=== PATIENT | female | born 1970 | race Caucasian/White ===

== ENCOUNTER → 2019-09-01 08:15 | Outpatient (CLI) | payer BC, SELFPAY ==
--- NOTE | ~2019-09-01 | CT_ITS ---
EXAMINATION: CT soft tissue neck w con EXAM DATE: 09/01/2019 08:59 INDICATION: Neck fullness, pea-sized lump right side marked with BB. TECHNIQUE: Spiral CT of the neck was performed following intravenous injection of 75 mL Omnipaque 350 . Axial, coronal and sagittal images were reviewed. The dose-length product (DLP) for this examinat ion was 393.33 mGy-cm. The exposure was tailored according to patient size (auto mA exposure control ), and iterative reconstruction (ASIR) was used as additional dose reduction technique. There is no prior study for comparison. FINDINGS: Externally placed marker identified with unremarkable submandibular gland deep to it. Scatt ered small bilateral submandibular and internal jugular chain lymph nodes. The thyroid gland is unrem arkable. The submandibular and parotid glands are symmetric. There is no cervical lymphadenopathy . There are no masses identified. The superior mediastinum is unremarkable. The airway is unrem arkable. Parapharyngeal and pre-glottic fat planes are preserved. The opacified vasculature is pa tent. The orbits are unremarkable. Visualized sinuses and mastoid air cells are well aerated. Mild cervical spondylosis. IMPRESSION: Unremarkable neck CT examination. Reviewed, dictated and finalized at location A.
== END ==
PROVIDERS: PCP Nurse Practitioner Psychiatric/Mental Health; Visit Provider Family Medicine
DX: R22.1 Localized swelling, mass and lump, neck (principal)
CPT/HCPCS: 70491; Q9967

== ENCOUNTER → 2020-02-20 09:20 | Outpatient (CLI) | payer BC, SELFPAY ==
--- NOTE | ~2020-02-20 | US_ITS ---
EXAMINATION: US abdomen complete DATE: 02/20/2020 09:45 INDICATION: Abdominal pain TECHNIQUE: Multiple grayscale and Doppler ultrasound images of the abdomen were obtained. COMPARISON: 07/11/2005 FINDINGS: The pancreatic head and body are normal in appearance. The pancreatic tail is not visualized. Abdomi nal aorta is normal in caliber measuring 2.1 cm proximally, 1.8 cm in the mid aorta and 2.0 cm the di stal aorta. The proximal inferior vena cava is normal. Liver has normal echogenicity and contour, wit h a smooth surface. No liver lesion identified. No intrahepatic biliary duct dilation suspected. Port al venous flow was seen in the hepatopetal, normal direction and has normal Doppler waveform. The gal lbladder is normal in appearance. There is no cholelithiasis. The common bile duct measures 3-4 mm, which is normal. Sonographic Baird sign was reported as negative by the club director. There is normal renal contour and echogenicity bilaterally. The right kidney measures 9.5 x 4.9 x 6.2 cm and the lef t 9.5 x 5.4 x 6.6 cm. There are no focal renal lesions identified. There is no hydronephrosis. Sple en is normal measuring 10.7 cm in length. IMPRESSION: 1. Normal abdominal ultrasound. Reviewed, dictated and finalized at location B.
== END ==
PROVIDERS: PCP Family Medicine; Visit Provider Family Medicine
DX: R10.9 Unspecified abdominal pain (principal)
CPT/HCPCS: 76700

== ENCOUNTER → 2020-03-04 12:28 | Outpatient (CLI) | payer BC, SELFPAY ==
--- NOTE | ~2020-03-04 | CT_ITS ---
EXAMINATION: CT abdomen pelvis w con DATE: 03/04/2020 12:54 INDICATION: Generalized abdominal pain, weight loss, nausea and diarrhea. TECHNIQUE: Computed tomography (CT) of the abdomen and pelvis was performed with 100 mL Omnipaque-350 intravenous contrast. Automated exposure control and iterative reconstruction technique were employe d. The dose-length product was 842.05 mGy-cm. COMPARISON: None FINDINGS: Lung bases are clear. Heart size is normal. No pericardial or pleural effusion. Focal hepatic steatos is at the ligamentum teres. Gallbladder, spleen, pancreas, bilateral adrenal glands and kidneys are n ormal. There are few scattered colonic diverticula without adjacent inflammatory change to suggest di verticulitis. Small bowel and appendix are normal. The uterus is not identified and has likely been s urgically resected. The uterus is not identified and has likely been surgically resected. Bladder and bilateral adrenal glands are normal. Tiny fat-containing umbilical hernia. Mild lumbar levocurvature with mild spondylosis. IMPRESSION: 1. No acute intra-abdominal/pelvic process. Reviewed, dictated and finalized at location A.
== END ==
PROVIDERS: PCP Family Medicine; Visit Provider Family Medicine
DX: R10.9 Unspecified abdominal pain (principal)
CPT/HCPCS: 74177; Q9967

== ENCOUNTER 2020-06-03 08:09 | Outpatient (CLI) | payer BC, SELFPAY | END 2020-06-03 08:10 | disposition home or self-care (01) | LOC: ANHSURGERY 08:10 | PROVIDERS: PCP Family Medicine; Visit Provider Obstetrics & Gynecology | DX: R10.2 Pelvic and perineal pain (principal); Z01.818 Encounter for other preprocedural examination | CPT/HCPCS: 36415; 86850; 86900; 86901 ==

== ENCOUNTER 2020-06-05 01:20 | Outpatient (CLI) | payer BC, SELFPAY ==
[2020-06-06 01:23] LABS: SARS-CoV-2 RNA PCR Negative
== END 2020-06-05 01:21 | disposition home or self-care (01) ==
LOC: ANHCOVIDDT 01:20
PROVIDERS: PCP Family Medicine; Visit Provider Obstetrics & Gynecology
DX: Z01.812 Encounter for preprocedural laboratory examination (principal); Z20.828 Contact with and (suspected) exposure to other viral communicable diseases
CPT/HCPCS: 87635; C9803; U0003

== ENCOUNTER 2020-06-08 01:54 | Day surgery (SDC) | payer BC, SELFPAY ==
--- NOTE | 2020-06-01 13:46 | PM.IMHP ---
H&P: HPI History of Present Illness Date/Time: 06/01/20 13:46 Chief complaint: bilat ovarian cysts, pelvic pain Narrative: Junie lSade is a 50 year old female She would be 1 status post hysterectomy is admitted for laparoscopic bilateral salpingo-oophorectomy. She has pain and discomfort and she has ultrasound showing a complex right ovarian cyst. She has opted to have both ovaries out at the time she understands this will make her permanently postmenopausal. Risks and benefits of the procedure reviewed in full Review of Systems Review of Systems: All systems reviewed & are unremarkable except as noted in HPI and below Meds Home Medications and Allergies Allergies Allergy/AdvReac Type Severity Reaction Status Date / Time TRAXIMENT Allergy SOB, CHEST Uncoded 09/05/13 09:58 TIGHTNESS Exam Const: General: no acute distress Eyes: General: appearance normal, both eyes and all related structures Neck: Neck: supple and no JVD Thyroid: thyroid normal Resp: Effort & Inspection: normal respiratory effort Auscultation: clear to auscultation bilaterally Cardio: Rate: regular rate Rhythm: regular rhythm GI: Inspection: non-distended GI Palp: Yes Soft to palpation, No Tenderness to palpation present (GI) and No Guarding due to palpation present (GI) Auscultation: normal bowel sounds : External Female Exam: normal external appearance Speculum Exam - Vagina: normal appearance of the vagina Speculum Exam - Cervix: Cervix absent Bimanual Exam- Adnexa, other: tender Skin: General skin exam: no rashes or lesions noted Extrem: General: normal to inspection and no edema Psych: Mental Status: mental status grossly normal Affect: normal affect Assessment and Plan Additional Plan impression: Pelvic pain complex right ovarian cyst Plan: Laparoscopic BSO
[2020-06-02 09:50] VITALS: BMI 29.2
--- NOTE | 2020-06-07 12:26 | WPDANESEPPF ---
Anes - Initial Pre Proc Eval Procedure: Operation Date: 06/08/20 12:00 Proposed Procedures p Laparoscopic Bilateral Salpingo-Oophorectomy - Addison Ortiz MD Date/Time: 06/07/20 12:26 Surgeon: Addison Ortiz MD Pre Op Diagnosis: bilat ovarian cysts, pelvic pain Patient Data Age: 50 Gender: F Height: 1.68 m Weight: 82 kg Allergies Allergy/AdvReac Type Severity Reaction Status Date / Time pregabalin [From Lyrica] Allergy Severe Rash Verified 06/08/20 10:04 sulfamethoxazole Allergy Severe Rash Verified 06/08/20 10:04 [From Bactrim] trimethoprim [From Bactrim] Allergy Severe Rash Verified 06/08/20 10:04 TRAXIMENT Allergy Severe SOB, CHEST Uncoded 06/08/20 10:04 TIGHTNESS Home Medications Medication Instructions Recorded Confirmed Type albuterol 90 mcg INHALATION PRN PRN 06/02/20 06/02/20 History ascorbic acid (vitamin C) 1 g PO DAILY 06/02/20 06/08/20 History diphenhydramine HCl [Benadryl] 25 mg PO HS PRN 06/02/20 06/02/20 History erenumab-aooe [Aimovig 70 mg SUBCUT MONTHLY 06/02/20 06/02/20 History Autoinjector] fluticasone propion-salmeterol 2 puff INHALATION PRN PRN 06/02/20 06/08/20 History [Advair HFA] montelukast 10 mg PO DAILY 06/02/20 06/08/20 History omeprazole 20 mg PO DAILY 06/02/20 06/08/20 History topiramate 100 mg PO DAILY 06/02/20 06/08/20 History hydrocodone-acetaminophen [[place]] 1 tablet PO Q4H PRN #30 tablet 06/08/20 Rx Patient hx anesthesia problems: none Family hx anesthesia problems: none PMFSH Past Medical History Medical History (Updated 06/08/20 @ 07:08 by Addison Ortiz MD) Asthma Chronic GERD Migraine Overweight (BMI 25.0-29.9) Social History Social History Smoking status: Never smoker Alcohol intake: never Substance use: never Living arrangements: with family Spiritual care concerns: No Anes - Eval Final PreProcedure Day of Procedure 06/07/20 12:26 Patient weight: overweight Heart: regular rate and rhythm Lungs: clear to auscultation and normal air movement Airway: Mallampati scale class II Neurological: alert and oriented Last oral intake: >/= 8 hours ASA classification: II Emergent: no Anesthetic plan: proceed Anesthesia type and monitoring: general ETT Informed Consent: The patient's anesthetic plan and its attendant risks and benefits were discussed with the patient/family/POA. Questions were solicited and answers provided to the satisfaction of the patient/family/POA.
[2020-06-08] VITALS (9 sets, daily range): BP systolic 100–119; BP diastolic 57–75; PULSE 83–118; RESP 10–20; TEMP 36–37.1; O2SAT 100
--- NOTE | 2020-06-08 07:07 | WPDHPUPDATE1 ---
History and Physical Update Update Date/Time: 06/08/20 07:07 History and Physical has been reviewed, including an updated exam of the patient. There are NO changes in the patient's condition. Risks, benefits, and alternatives have been discussed and questions answered. Patient agrees to proceed with procedure.
[2020-06-08] MEDS: LACTATED RINGERS 1,000 ML 30 ML IV CONT ×2 (10:25→13:19)
[2020-06-08] MEDS: ACETAMINOPHEN 500 MG TABLET 1000 MG PO (10:25)
[2020-06-08] MEDS: KETOROLAC 15 MG/ML VIAL (*BKC) IV PUSH (10:32)
[2020-06-08] MEDS: SCOPOLAMINE 1.5 MG PATCH TRANSDERM (11:07)
--- NOTE | 2020-06-08 12:33 | PM.PROC ---
Procedure Note - Detailed Date of procedure: 06/08/20 Pre-op diagnosis: bilat ovarian cysts, pelvic pain Surgeon: Addison Ortiz MD Postop diagnosis: Bilateral ovarian cyst/pelvic pain/pelvic adhesions Anesthesia: General endotracheal Procedure: Laparoscopic bilateral salpingo-oophorectomy and lysis of adhesions Findings: Absent uterus bilateral ovarian cysts. Multiple adhesions to the right ovary and tube Complications: None EBL: 25cc Description of procedure: Patient was prepped draped in the normal sterile fashion placed in the dorsal lithotomy position. Under excellent general endotracheal anesthesia weighted speculum placed in posterior fornix of vagina. The sponge stick was placed in the bladder drained of clear urine. The weighted speculum was removed removed and the gloves were changed. A supraumbilical incision was made Veress needle passed in the abdomen. The abdomen filled with CO2 gas [id number]. 5mm trocar was advanced under direct visualization assuring no injury with the Optiview scope. Patient placed in Trendelenburg and a suprapubic incision made. The 5mm trocar advanced under direct visualization assuring no injury. A left lower quadrant incision made and the 10mm trocar advanced under direct visualization assuring no injury. The above findings were seen for documentation was undertaken using the 5mm port to hold on stretch the adhesions were removed with sharp dissection using occasionally cautery. This was careful to avoid any underlying vital structures. Once the left infundibulopelvic structure could be skeletonized this was clamped, burned, cut in the ovary and tube complex placed in the cul-de-sac. In like fashion multiple adhesions were seen on the right in these were sharply dissected using occasional cautery using stretch. When infundibulopelvic structure could be skeletonized was clamped, burned, cut. The right ovary and tube and the left ovary and tube were placed in an Endo-Catch and removed through the left lower quadrant incision. Irrigation was undertaken in hemostasis appeared present. All pedicles appeared dry. The lower site removed after gas removed from the abdomen the upper site removed. The incisions closed with 4 O Monocryl and glue. The patient was awakened and went to recovery in satisfactory condition. All sponge, needle, instrument counts were correct. There were no immediate complications noted
[2020-06-08] MEDS: fentaNYL CITRATE INJ (*CRX) 100 MCG/2 ML VIAL 25 MCG IV PUSH ×4 (13:06→13:32)
[2020-06-08] MEDS: oxyCODONE HCL (*CRX) 5 MG TAB IR PO (14:14)
== END 2020-06-08 14:54 | disposition home or self-care (01) ==
PROVIDERS: PCP Family Medicine; Visit Provider Obstetrics & Gynecology
PROC: (CPT 49320; principal; 2020-06-08 12:00)
DX: N73.6 Female pelvic peritoneal adhesions (postinfective) (principal); K66.8 Other specified disorders of peritoneum; R10.2 Pelvic and perineal pain; J45.909 Unspecified asthma, uncomplicated; K21.9 Gastro-esophageal reflux disease without esophagitis
CPT/HCPCS: 58661; 88305; A9270; J0330; J1100; J1885; J2250; J2405; J2704; J3010; J7120

== ENCOUNTER 2020-11-14 00:28 | Emergency (ER) | payer BC, SELFPAY ==
--- NOTE | ~2020-11-14 | XR_ITS ---
EXAMINATION: XR abdomen obstructive series DATE: 11/14/2020 01:22 INDICATION: Abdominal pain. Nausea and vomiting. TECHNIQUE: Upright and supine views of the abdomen on 3 radiographs were obtained. COMPARISON: CT abdomen and pelvis 03/04/2020 FINDINGS: There are no dilated loops of bowel. There is liquid stool in the colon suggestive of diarr hea. No free intraperitoneal gas. IMPRESSION: 1. Nonobstructive bowel gas pattern. Reviewed, dictated and finalized at location A.
[2020-11-14 00:30] VITALS: BP 112/77; PULSE 112; RESP 20; TEMP 36.9; O2SAT 94
--- NOTE | 2020-11-14 00:44 | ECG_ITS ---
Measurements Intervals [place] Rate: 95 P: 54 HI: 160 QRS: 64 QRSD: 89 T: 65 QT: 336 QTc: 424 Interpretive Statements SINUS RHYTHM WITH MARKED SINUS ARRHYTHMIA INCOMPLETE RIGHT BUNDLE BRANCH BLOCK BORDERLINE ECG Electronically Signed On 11-14-2020 5:56:41 CDT by Murtaza Luque D.O.
--- NOTE | 2020-11-14 00:49 | ED.SYNCOPE ---
HPI - Syncope General Chief Complaint: Syncope Stated Complaint: PASSED OUT Time Seen by Provider: 11/14/20 00:30 Source: patient and family Mode of arrival: wheelchair Limitations: no limitations History of Present Illness HPI narrative: Patient is brought in by after having a syncopal episode. She states she has had multiple episodes of nausea and vomiting at home today. She has also had multiple episodes of diarrhea today. Nausea, vomiting and diarrhea has been severe, ongoing, since am 11/13/2020. They were not improved by bentyl taken at home. She has been lightheaded at times throughout the day. MD complaint: loss of consciousness and felt faint Onset (ago): minute(s) -: second(s) Prodromal symptoms: lightheaded Context: at rest Injuries sustained associated with event: none Current symptoms: weakness and other (fatigue) Treatments prior to arrival: none Related Data Home Medications Medication Instructions Recorded Confirmed montelukast 10 mg PO DAILY 06/02/20 11/14/20 omeprazole 20 mg PO DAILY 06/02/20 11/14/20 topiramate 100 mg PO DAILY 06/02/20 11/14/20 Allergies Allergy/AdvReac Type Severity Reaction Status Date / Time pregabalin [From Lyrica] Allergy Severe Rash Verified 06/08/20 10:04 sulfamethoxazole Allergy Severe Rash Verified 06/08/20 10:04 [From Bactrim] trimethoprim [From Bactrim] Allergy Severe Rash Verified 06/08/20 10:04 TRAXIMENT Allergy Severe SOB, CHEST Uncoded 06/08/20 10:04 TIGHTNESS Review of Systems Constitutional: Constitutional: Reports fatigue and Reports weakness Eyes: Eyes: Reports no additional eye complaints ENT: Reports system reviewed and no additional complaints, except as documented Cardiovascular: Cardiovascular: Reports no additional cardiovascular complaints Respiratory: Respiratory: Reports no additional respiratory complaints Gastrointestinal: Gastrointestinal: Reports abdominal pain, Reports diarrhea, Reports nausea and Reports vomiting Genitourinary: Genitourinary: Reports no additional female genitourinary complaints Musculoskeletal: Musculoskeletal: Reports no additional musculoskeletal complaints Integumentary/Breasts: Skin/Breast: Reports system reviewed and no additional complaints, except as docu Neurologic: Reports system reviewed and no additional complaints, except as documented Psychiatric: Psychiatric: Reports no additional psychiatric complaints Endocrine: Endocrine: Reports no additional endocrine complaints Hematologic/Lymphatic: Hematologic/Lymphatic: Reports no additional hematologic/lymphatic complaints Allergic/Immunologic: Allergic/Immunologic: Reports no additional allergic/immunologic complaints [facility] Past Medical History Medical History (Updated 11/14/20 @ 02:45 by Fabien Lu MD) Asthma Chronic GERD Migraine Overweight (BMI 25.0-29.9) Surgical History Surgical History (Updated 11/14/20 @ 01:15 by Fabien Lu MD) H/O: hysterectomy Family History Family History Other No significant family history Social History Social History Smoking status: Never smoker Alcohol intake: never Substance use: never Spiritual care concerns: No Exam Const: General: no acute distress Orientation/consciousness: patient oriented x3 HENMT: Head: normal to inspection Ears: external ears normal General nose exam: Normal external nose present Face and sinus: normal facial exam Mouth: Yes Normal oral and palatal mucosa present Throat: posterior oropharynx normal Eyes: Conjunctivae: conjunctivae normal Neck: Neck: normal visual inspection Chest: Chest palpation & inspection: normal inspection of the chest Resp: Effort & Inspection: normal respiratory effort Auscultation: clear to auscultation bilaterally Cardio: Rate: regular rate Rhythm: regular rhythm GI: Auscultation: Hyperactive bowel margarito
[2020-11-14 00:56] LABS: Basophils Absolute Auto 0.05 K/mm3 (0.00-0.10); Basophils Percent Auto 0.3 % (0.0-1.0); Eosinophils Absolute Auto 0.02 K/mm3 (0.02-0.50); Eosinophils Percent Auto 0.1 % (1.0-6.0); Hematocrit 39.8 % (35.0-49.0); Hemoglobin 13.5 g/dL (12.0-15.0); Immature Granulocyte Absolute 0.05 K/mm3 (0.00-0.00); Immature Granulocyte Percent A 0.3 % (0.0-0.0); Lymphocytes Absolute Auto 0.28 K/mm3 (1.10-4.50); Lymphocytes Percent Auto 1.9 % (18.0-42.0); Mean Corpuscular HGB Conc 33.9 g/dL (32.0-36.0); Mean Corpuscular Hemoglobin 32.5 pg (27.0-31.0); Mean Corpuscular Volume 95.7 fL (78.0-102.0); Mean Platelet Volume 11.3 fl (9.2-11.8); Monocytes Absolute Auto 0.18 K/mm3 (0.10-0.90); Monocytes Percent Auto 1.3 % (2.0-11.0); Neutrophils Absolute Auto 13.8 K/mm3 (1.7-7.2); Neutrophils Percent Auto 96.1 % (50.0-70.0); Platelet Count Result 277 K/mm3 (150-420); Red Blood Count 4.16 M/mm3 (4.20-5.40); Red Cell Distribution Width 12.5 % (11.6-14.4); White Blood Count 14.4 K/mm3 (4.8-10.8)
[2020-11-14 01:03] LABS: Add Urine Microscopic? YES; Appearance Urine Clear (Clear); Bilirubin Urine Negative (Negative); Blood Urine Negative (Negative); Color Urine Yellow (Yellow); Glucose Urine UA Negative (Negative); Ketones Urine 1+ (Negative); Leukocyte Esterase Ur Negative (Negative); Nitrate Urine Negative (Negative); Protein Urine Negative (Negative); Specific Grav Ur >= 1.030 (1.010-1.020); Urobilinogen Urine 0.2 mg/dL (0.2-1.0); pH Urine 5.5 (5.0-8.0)
[2020-11-14 01:06] LABS: Bacteria Urine 1+ /hpf; Mucus Urine Few /lpf; RBC Urine None seen /hpf (0-2); Squamous Epithelial Cell Urine Few /hpf (Few); WBC Urine None seen /hpf (0-3)
[2020-11-14 01:12] LABS: Alanine Aminotransferase 17 U/L (14-59); Albumin Level 4.1 g/dL (3.4-5.0); Alkaline Phosphatase 80 U/L (46-116); Anion Gap 14 mmol/L (8-16); Aspartate Amino Transferase < 10 U/L (15-37); Bilirubin,Total 0.5 mg/dL (0.00-1.00); Blood Urea Nitrogen 24 mg/dL (7-18); Calcium 9.2 mg/dL (8.5-10.1); Carbon Dioxide 22 mmol/L (21-32); Chloride 105 mmol/L (98-108); Estimated Glomerular Filt Rate 50; Glucose 150 mg/dL (70-99); Osmolality Calculated 299 mOsm/kg (285-295); Potassium 3.5 mmol/L (3.5-5.1); Sodium 141 mmol/L (136-145)
[2020-11-14 01:14] LABS: Amylase 33 U/L (25-115); Lipase 40 U/L (73-393); Magnesium 1.9 mg/dL (1.8-2.4)
[2020-11-14] MEDS: ONDANSETRON HCL ODT 4 MG TABLET PO (01:25)
[2020-11-14] MEDS: DICYCLOMINE HCL INJ 20 MG/2 ML VIAL IM (01:25)
[2020-11-14 01:27] LABS: Lactic Acid Reflex 1.2 mmol/L (0.4-2.0)
[2020-11-14] MEDS: LACTATED RINGERS 1,000 ML 999 ML IV CONT (01:45)
[2020-11-14] MEDS: BACLOFEN 10 MG TABLET 20 MG PO (01:51)
[2020-11-14] MEDS: KETOROLAC 30 MG/ML VIAL (*BKC) IV PUSH (02:01)
[2020-11-14 02:52] VITALS: TEMP 36.9
[2020-11-14] MEDS: POTASSIUM BICARBONATE 25 MEQ TABEF 50 MEQ PO (02:53)
[2020-11-14 02:56] VITALS: BP 111/68; PULSE 97; RESP 20; TEMP 36.9; O2SAT 97
== END 2020-11-14 03:07 | disposition home or self-care (01) ==
PROVIDERS: Emergency Provider Emergency Medicine; PCP Family Medicine
DX: K52.9 Noninfective gastroenteritis and colitis, unspecified (principal); G43.909 Migraine, unspecified, not intractable, without status migrainosus; R11.2 Nausea with vomiting, unspecified
CPT/HCPCS: 36415; 74019; 80053; 81001; 82150; 83605; 83690; 83735; 85025; 93005; 96361; 96372; 96374; 99283; 99284; A9270; J0500; J1885; J7120

== ENCOUNTER 2022-04-01 13:33 | Emergency (ER) | payer BC, SELFPAY ==
--- NOTE | ~2022-04-01 | CT_ITS ---
EXAMINATION: CT abdomen pelvis wo con DATE: 04/01/2022 15:37 INDICATION: LEFT FLANK PAIN. TECHNIQUE: Computed tomography (CT) of the abdomen and pelvis was performed without intravenous contr ast. Automated exposure control and iterative reconstruction technique were employed. The dose-length product was 485.47 mGy-cm. COMPARISON: 03/04/2020. FINDINGS: Lower thorax: Unremarkable Liver: Normal. Biliary/Gallbladder: Gallbladder is normal. No bile duct dilation. Pancreas: No mass or duct dilation. Spleen: Normal. Adrenals:No mass. Kidneys: 5 x 8 mm left UPJ stone causing mild caliectasis and pelviectasis and mild perinephric stran ding GI tract: No small or large bowel dilation. Normal appendix. Mild diverticulosis without diverticulit is. Mesentery/Peritoneum: No ascites, mass, or free air. Retroperitoneum: No mass. Pelvis: Pelvic organs are within normal limits. Soft Tissues: Soft tissues and body wall unremarkable. Bones: No acute osseous finding. IMPRESSION: 5 x 8 mm left UPJ stone causing mild obstructive uropathy on the left. Reviewed, dictated and finalized at location K.
[2022-04-01 14:12] VITALS: BP 131/90; PULSE 105; RESP 18; TEMP 36.4; O2SAT 99
--- NOTE | 2022-04-01 14:23 | ED.ABDPAIN ---
HPI - Abdominal Pain General Chief Complaint: Urogenital-Female Stated Complaint: abd pain Time Seen by Provider: 04/01/22 14:12 Source: patient Mode of arrival: ambulatory History of Present Illness HPI narrative: 52 year female with a history of asthma, GERD, migraine had a positive UA 10 days without symptoms for which she received nitrofurantoin presents to the ER with -- left flank pain radiating to her urinary passage since midnight. No dysuria or hematuria. No fever or chills. History of kidney stones. Had hysterectomy in the past MD elicited complaint: flank pain Pertinent past history: none and kidney stones Onset (ago): hour(s) ( started 14 hours ago) Pain Consistency: constant ( initially intermittent but currently continues) Location: L flank Severity: severe Quality: aching Radiation: other ( Radiates to the left groin) Exacerbating factors: nothing Relieving factors: nothing Associated symptoms: denies other symptoms Related Data Patient : No Home Medications Medication Instructions Recorded Confirmed montelukast 10 mg tablet 10 mg PO DAILY 06/02/20 04/01/22 omeprazole 20 mg capsule,delayed 20 mg PO DAILY 06/02/20 04/01/22 release topiramate 100 mg tablet (Topamax) 50 mg PO DAILY 06/02/20 04/01/22 dicyclomine 20 mg tablet 10 mg PO DAILY 04/01/22 04/01/22 duloxetine 30 mg capsule,delayed 30 mg PO BID 04/01/22 04/01/22 release erenumab-aooe 70 mg/mL 70 mg subcut MONTHLY 04/01/22 04/01/22 subcutaneous auto-injector (Aimovig Autoinjector) midodrine 2.5 mg tablet 2.5 mg PO BID 04/01/22 04/01/22 nitrofurantoin macrocrystal 100 mg 100 mg PO BID 04/01/22 04/01/22 capsule Allergies Allergy/AdvReac Type Severity Reaction Status Date / Time pregabalin [From Lyrica] Allergy Severe Rash Verified 04/01/22 16:03 sulfamethoxazole Allergy Severe Rash Verified 04/01/22 16:03 [From Bactrim] trimethoprim [From Bactrim] Allergy Severe Rash Verified 04/01/22 16:03 gabapentin Allergy Hives Verified 04/01/22 16:03 TRAXIMENT Allergy Severe SOB, CHEST Uncoded 04/01/22 16:03 TIGHTNESS Review of Systems Review of Systems: All systems reviewed & are unremarkable except as noted in HPI and below Constitutional: Constitutional: Reports as per HPI and Reports no additional constitutional complaints Eyes: Eyes: Reports as per HPI and Reports no additional eye complaints ENT: Reports system reviewed and no additional complaints, except as documented and Reports as per HPI Cardiovascular: Cardiovascular: Reports as per HPI and Reports no additional cardiovascular complaints Respiratory: Respiratory: Reports as per HPI and Reports no additional respiratory complaints Gastrointestinal: Gastrointestinal: Reports as per HPI and Reports no additional gastrointestinal complaints Genitourinary: Genitourinary: Reports no additional female genitourinary complaints Comments: left flank pain radiating to her left groin. Musculoskeletal: Musculoskeletal: Reports no additional musculoskeletal complaints and Reports as per HPI Integumentary/Breasts: Skin/Breast: Reports system reviewed and no additional complaints, except as docu and Reports as per HPI Neurologic: Reports system reviewed and no additional complaints, except as documented and Reports as per HPI Psychiatric: Psychiatric: Reports no additional psychiatric complaints and Reports as per HPI Endocrine: Endocrine: Reports no additional endocrine complaints and Reports as per HPI Hematologic/Lymphatic: Hematologic/Lymphatic: Reports no additional hematologic/lymphatic complaints and Reports as per HPI Allergic/Immunologic: Allergic/Immunologic: Reports no additional allergic/immunologic complaints and Reports as per HPI [facility] Past Medical History Medical History Asthma Chronic GERD Migraine Overweight (BMI 25.0-29.9) Surgical History Surgical History (Reviewed 04/01/22 @
[2022-04-01] MEDS: ONDANSETRON HCL ODT 4 MG TABLET PO (14:33)
[2022-04-01] MEDS: HYDROmorphone HCL INJ (*CRX) 2 MG/ML VIAL 0.5 MG IM ×2 (14:34→17:30)
[2022-04-01 14:39] LABS: Basophils Absolute Auto 0.08 K/mm3 (0.00-0.10); Basophils Percent Auto 0.8 % (0.0-1.0); Eosinophils Absolute Auto 0.24 K/mm3 (0.02-0.50); Eosinophils Percent Auto 2.5 % (1.0-6.0); Hematocrit 34.8 % (35.0-49.0); Hemoglobin 11.7 g/dL (12.0-15.0); Immature Granulocyte Absolute 0.04 K/mm3 (0.00-0.00); Immature Granulocyte Percent A 0.4 % (0.0-0.0); Lymphocytes Absolute Auto 1.72 K/mm3 (1.10-4.50); Lymphocytes Percent Auto 17.6 % (18.0-42.0); Mean Corpuscular HGB Conc 33.6 g/dL (32.0-36.0); Mean Corpuscular Hemoglobin 32.5 pg (27.0-31.0); Mean Corpuscular Volume 96.7 fL (78.0-102.0); Mean Platelet Volume 11.1 fl (9.2-11.8); Monocytes Absolute Auto 0.64 K/mm3 (0.10-0.90); Monocytes Percent Auto 6.6 % (2.0-11.0); Neutrophils Percent Auto 72.1 % (50.0-70.0); Platelet Count Result 261 K/mm3 (150-420); Red Cell Distribution Width 12.1 % (11.6-14.4); White Blood Count 9.8 K/mm3 (4.8-10.8)
[2022-04-01 14:58] LABS: Add Urine Microscopic? YES; Appearance Urine Clear (Clear); Bilirubin Urine Negative (Negative); Blood Urine 3+ (Negative); Color Urine Yellow (Yellow); Glucose Urine UA Negative (Negative); Ketones Urine Negative (Negative); Leukocyte Esterase Ur Negative (Negative); Nitrate Urine Negative (Negative); Protein Urine Negative (Negative); Specific Grav Ur 1.025 (1.010-1.020); Urobilinogen Urine 0.2 mg/dL (0.2-1.0)
[2022-04-01 15:01] LABS: Alanine Aminotransferase 15 U/L (14-59); Albumin Level 3.9 g/dL (3.4-5.0); Alkaline Phosphatase 84 U/L (46-116); Anion Gap 7 mmol/L (8-16); Aspartate Amino Transferase 17 U/L (15-37); Bilirubin,Total 0.3 mg/dL (0.00-1.00); Blood Urea Nitrogen 23 mg/dL (7-18); Calcium 8.4 mg/dL (8.5-10.1); Carbon Dioxide 25 mmol/L (21-32); Chloride 109 mmol/L (98-108); Estimated CRCL calculation 50 ml/min; Estimated Glomerular Filt Rate 44; Glucose 90 mg/dL (70-99); Lipase 91 U/L (73-393); Osmolality Calculated 295 mOsm/kg (285-295); Potassium 3.4 mmol/L (3.5-5.1); Sodium 141 mmol/L (136-145); Total Protein 6.9 g/dL (6.4-8.2)
[2022-04-01 15:06] LABS: Lactic Acid Reflex 0.6 mmol/L (0.4-2.0)
[2022-04-01 15:10] LABS: Amorphous Sediment Urine Few; Bacteria Urine Trace /hpf; RBC Urine >75 /hpf (0-2); Squamous Epithelial Cell Urine Occasional /hpf (Few); WBC Urine None seen /hpf (0-3)
[2022-04-01 15:11] LABS: Mucus Urine Heavy /lpf
[2022-04-01] MEDS: SODIUM CHLORIDE 0.9% IV 1,000 ML 999 ML IV CONT (15:35)
[2022-04-01] MEDS: HYDROmorphone HCL INJ (*CRX) 2 MG/ML VIAL 0.5 MG IV PUSH (15:38)
[2022-04-01] MEDS: ONDANSETRON INJ 4 MG/2 ML VIAL IV PUSH (15:38)
[2022-04-01 15:44] VITALS: BP 109/68; PULSE 82; RESP 16; O2SAT 98
[2022-04-01] MEDS: TAMSULOSIN HCL 0.4 MG CAPSULE PO (17:17)
[2022-04-01 17:34] VITALS: BP 119/84; PULSE 85; RESP 16; TEMP 36.7; O2SAT 100
== END 2022-04-01 17:30 | disposition home or self-care (01) ==
PROVIDERS: Emergency Provider Internal Medicine Critical Care Medicine
DX: N20.1 Calculus of ureter (principal); N18.30 Chronic kidney disease, stage 3 unspecified
CPT/HCPCS: 36415; 74176; 80053; 81001; 83605; 83690; 85025; 96361; 96372; 96374; 96375; 99284; A9270; J1170; J2405; J7030

== ENCOUNTER 2025-03-03 09:51 | Outpatient (CLI) | payer BC, SELFPAY ==
[2025-03-03 10:11] VITALS: BP 109/69; PULSE 92; RESP 16; TEMP 36.6; O2SAT 99; BMI 30.7
[2025-03-03] MEDS: PEGFILGRASTIM-JMDB 6 MG/0.6 ML SYRINGE SUB-Q (10:11)
--- OUTSIDE RECORDS SUMMARY | 2025-03-03 11:24 | XMS_ITS ---
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 Past Treatment and Therapy Plans No past plan information found.
--- OUTSIDE RECORDS SUMMARY | 2025-03-03 11:24 | XMS_ITS | Encounter Summary ---
Author Organization 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 More than three times a week 02/24/2025 How often do you get togethe r with friends or relatives? More than three times a week 02/24/2025 How often do you attend chur ch or nondenominational services? More than 4 times per year 02/24/2025 Do you belong to any clubs o r organizations such as scientology groups, unions, fraternal or athletic groups, or school groups? Yes 02/24/2025 How often do you attend meet ings of the clubs or organizations you belong to? More than 4 times per year 02/24/2025 Are you , , di vorced, , never , or living with a partner? 02/24/2025 Overall Financial Resource Strain (CARDIA) Answe r Date Recorded How hard is it for you to pa y for the very basics like food, housing, medical care, and heating? Not hard at all 02/24/2025 Hunger Vital Sign Answer Date Recorded Within the past 12 months, y ou worried that your food would run out before you got the money to buy more. Never true 02/25/20 25 Within the past 12 months, t he food you bought just didn't last and you didn't have money to get more. Never true 02/24/2025 PRAPARE - Transportation Answer Date Re corded In the past 12 months, has l ack of transportation kept you from medical appointments or from getting medications? No 02/2025 In the past 12 months, has l ack of transportation kept you from meetings, work, or from getting things needed for daily living? No 02/24/2025 Housing Stability Vital Sign Answer Yon e Recorded In the last 12 months, was t here a time when you were not able to pay the mortgage or rent on time? No 02/24/2025 In the past 12 months, how m any times have you moved where you were living? 0 02/24/2025 At any time in the past 12 m [facility], were you homeless or living in a fpc (including now)? No 02/24/2025 [facility] Utilities Answer Date Recorded In the past 12 months has th e [employer], gas, oil, or water company threatened to shut off services in your home? No 02/24/2025 Comments Unknown Sex and Gender Information Value Date Recorded Sex Assigned at Not on file Legal Sex Female 5:44 PM [employer] Gender Identity Not on file Sexual Orientation Not on file documented as of this encounter Plan of Treatment Not on file documented as of this encounter Visit Diagnoses Diagnosis Acute myeloid leukemia not having achieved remission (HCC)- Primary documented in this encounter Orders Nursing Count Last Ordered Date First Orde red Date HLA LAB REQUISITION 1 02/27/2025 documented in this encounter Care Teams Hand Rigger Relationship Specialty Start Date End Date Miguelangel Espinoza MD [address] [place] [address] PCP - General 10/06/16 Delvin Tavares MD [address] [facility] [address] [place] [address] Referring Physician Hematology and Oncology 12/30/24 Didier Cruz MD [address] [facility] [address] IM BONE MARROW TRANSPLANT, , [address] [place] [address] Medical Oncologist/Ict Business Development Manager Medical Oncology 01/02/25 documented as of this encounter
--- OUTSIDE RECORDS SUMMARY | 2025-03-03 11:24 | XMS_ITS | Clinical Summary ---
Author Organization [address] Address [address] [place] [phone] Care Team Providers [facility] Worker Name Role Phone Miguelangel Espinoza MD Primary Care Provider [phone] Delvin Tavares MD Unavailable [phone] UyVu MD Unavailable [phone] Allergies Active Allergy Reactions Criticality Noted Date Comments Gabapentin Other (See comments) 06/14/2016 Nerve issue Metronidazole Hives Medium 08/16/2021 Pregabalin Other (See comments) 06/14/2016 Rizatriptan Benzoate Anaphylaxis High 08/11/2014 rizatriptan benzoate Sulfamethoxazole-Trimet hoprim Hives,Rash,Shortness of breath High 11/22/2016 Sumatriptan-Naproxen Rash,Unknown Medium 11/22/2016 Trimethoprim Rash High 04/01/2022 Venom-Honey Bee Hives Medium 12/21/2016 honey bee venom Medications topiramate (TOPAMAX) 50 mg tabletIndication s:Acute myeloid leukemia not having achieved remission (HCC) 1 tablet (50 mg total) For nerve pain 2 Active ondansetron (ZOFRAN) 4 mg tabletIndication s:Acute myeloid leukemia not having achieved remission (HCC) 1 tablet (4 mg total) Active montelukast (SINGULAIR) 10 mg tabletIndication s:Acute myeloid leukemia not having achieved remission (HCC) 1 tablet (10 mg total) 1 Active midodrine (PROAMATINE) 2.5 mg tabletIndication s:Acute myeloid leukemia not having achieved remission (HCC) 1 tablet (2.5 mg total) 2 (two) times a day 4 Active midodrine (PROAMATINE) 5 mg tabletIndication s:Acute myeloid leukemia not having achieved remission (HCC) 1 tablet (5 mg total) 2 (two) times a day 5 Active LORazepam (ATIVAN) 0.5 mg tabletIndication s:Acute myeloid leukemia not having achieved remission (HCC) Take 1 tablet (0.5 mg total) by mouth 2 (two) times a day Active loratadine (CLARITIN) 10 mg tabletIndication s:Acute myeloid leukemia not having achieved remission (HCC) Take 1 tablet (10 mg total) by mouth daily 5 Active levoFLOXacin (LEVAQUIN) 500 mg tabletIndication s:Acute myeloid leukemia not having achieved remission (HCC) Take 1 tablet (500 mg total) by mouth daily 5 Active famotidine (PEPCID) 40 mg tabletIndication s:Acute myeloid leukemia not having achieved remission (HCC) 1 tablet (40 mg total) 4 Active albuterol HFA (PROVENTIL HFA,VENTOLIN HFA,PROAIR HFA) 90 mcg/actuation inhalerIndicatio ns:Acute myeloid leukemia not having achieved remission (HCC) Inhale 2 puffs every 4 (four) hours as needed 6 Active acetaminophen (TYLENOL) 325 mg tabletIndication s:Acute myeloid leukemia not having achieved remission (HCC) Take 2 tablets (650 mg total) by mouth every 6 (six) hours as needed Active erenumab-aooe (AIMOVIG) 70 mg/mL auto-injector subcutaneous injectionIndicat ions:Acute myeloid leukemia not having achieved remission (HCC) 1 mL (70 mg total) every 30 (thirty) days 2 Active fluconazole (DIFLUCAN) 200 mg tabletIndication s:Acute myeloid leukemia not having achieved remission (HCC) 1 tablet (200 mg total) 5 Active acyclovir (ZOVIRAX) 400 mg tabletIndication s:Acute myeloid leukemia not having achieved remission (HCC) 1 tablet (400 mg total) 2 (two) times a day 5 Active prochlorperazine (COMPAZINE) 10 mg tabletIndication s:Acute myeloid leukemia not having achieved remission (HCC) 1 tablet (10 mg total) every 8 (eight) hours as needed 5 Active sevelamer (RENVELA) 800 mg tabletIndication s:Acute myeloid leukemia not having achieved remission (HCC) 1 tablet (800 mg total) 5 02/24/20 25 Discontinu ed(Patient Reported) posaconazole (NOXAFIL) 100 mg tablet,delayed release (DR/EC)Indicatio ns:Acute myeloid leukemia not having achieved remission (HCC) 1 tablet (100 mg total) 5 02/24/20 25 Discontinu ed(Patient Reported) estradioL (VAGIFEM) 10 mcg tabletIndication s:Acute myeloid leukemia not having achieved remission (HCC) 1 tablet (10 mcg total) daily as needed 5 02/24/20 25 Discontinu ed(Patient Reported) Aimovig Autoinjector 70 mg/mL auto-injector subcutaneous injectionIndicat ions:Acute myeloid leukemia not having achieved remission (HCC) 1 mL (70 mg total) every 30 (thirty) days 1 02/24/20 25 Discontinu ed(Duplica te order) acyclovir (ZOVIRAX) 200 mg capsuleIndicatio ns:Acute myeloid leukemia not having achieved remission (HCC) Take 2 capsules (400 mg total) by mouth 2 (two) times a day 5 02/24/20 25 Discontinu ed(Patient Reported) Active Problems Problem Noted Date Diagnosed Date Acute myeloid leukemia not having achieved remis aiden 01/02/2025 Encounters Date Type Department Care Team Description 02/27/2025 Orders Only [facility] Medicine Bone Marrow Transplant [address] [place] [phone] 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 RN Acute myeloid leukemia not having achieved remission (HCC) (Primary Dx) 02/26/2025 Orders Only [facility] Medicine Bone Marrow Transplant [address] [place] [phone] 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) (Primary Dx) 02/23/2025 3:45 PM CDT Office Visit [facility] Medicine Bone Marrow Transplant [address] [facility] Floor 6 [place] [address] Vu Cruz MD Acute myeloid leukemia not having achieved remission (HCC) 02/23/2025 3:30 PM CDT Clinical Support [facility] - Lab Collection [address] [facility] Floor 6 [place] [address] Acute myeloid leukemia not having achieved remission (HCC) 02/23/2025 3:15 PM CDT Lab [facility] Medicine Oncology Lab [address] [facility] Floor 6 [place] [address] Acute myeloid leukemia not having achieved remission (HCC) 02/23/2025 1:31 PM CDT - 02/23/2025 11:59 PM CDT Hospital Encounter [facility] - Cardiac Diagnostic Lab [address] [facility] Floor 8 [place] [address] Acute myeloid leukemia not having achieved remission (HCC) Discharge Disposition: Discharge to home or self care 02/23/2025 12:00 PM CDT Social Work [facility] [address] [facility], [address]th Floor, [place] [address] Kaylynn Menon LCSW 02/23/2025 9:16 AM CDT - 02/23/2025 11:59 PM CDT Hospital Encounter [facility] Medicine PFT Lab [address] [facility] Floor 1, [address] [place] [address] Acute myeloid leukemia not having achieved remission (HCC) Discharge Disposition: Discharge to home or self care 02/23/2025 8:46 AM CDT - 02/23/2025 11:59 PM CDT Hospital Encounter [facility] [address] [place] [phone] Acute myeloid leukemia not having achieved remission (HCC) Discharge Disposition: Discharge to home or self care 02/23/2025 8:46 AM CDT - 02/23/2025 11:59 PM CDT Hospital Encounter [facility] [address] [place] [phone] Acute myeloid leukemia not having achieved remission (HCC) Discharge Disposition: Discharge to home or self care 02/12/2025 Orders Only [facility] Medicine Bone Marrow Transplant [facility] [address] [phone] Vu Cruz MD Acute myeloid leukemia not having achieved remission (HCC) (Primary Dx) 02/12/2025 Telephone [facility] Medicine Bone Marrow Transplant [address] [place] [phone] Tim Leslie VKayla 01/26/2025 Orders Only [address] [phone] Leslie Dodson Acute myeloid leukemia not having achieved remission (HCC) (Primary Dx) 01/22/2025 Orders Only [facility] Pathology Outreach [facility] [place] [address] Vu Cruz MD Acute myeloid leukemia not having achieved remission (HCC) 01/21/2025 Orders Only [facility] Bone Marrow Transplant [address] [place] [phone] Tamara Vital RMA Acute myeloid leukemia not having achieved remission (HCC) (Primary Dx) 01/19/2025 Telephone [facility] Medicine Bone Marrow Transplant [address] [place] [phone] Vu Cruz MD 01/15/2025 Orders Only [facility] Scanning, Provider 01/15/2025 Telephone [facility] Bone Marrow Transplant [address] [place] [phone] Noemi Elias, MIKKI 01/13/2025 Telephone [facility] Bone Marrow Transplant [address] [place] [phone] Regulo Hilton RMA Medical Records Request 01/13/2025 Orders Only [facility] Pathology Outreach [facility] [place] [address] Vu Cruz MD Acute myeloid leukemia not having achieved remission (HCC) 01/12/2025 2:00 PM CDT Clinical Support [facility] - Lab Collection [address] [place] [address] Acute myeloid leukemia not having achieved remission (HCC) 01/12/2025 11:00 AM CDT Infusion [facility] - Infusion [address] [facility] 6 [place] [address] Acute myeloid leukemia not having achieved remission (HCC) 01/12/2025 10:00 AM CDT Office Visit [facility] Bone Marrow Transplant [address] [phone] Vu Cruz MD Acute myeloid leukemia not having achieved remission (HCC) (Primary Dx); AML (acute myeloid leukemia) with failed remission (HCC) 01/12/2025 8:45 AM CDT Clinical Support [facility] - Lab Collection [facility] [address] [address] Acute myeloid leukemia not having achieved remission (HCC) 01/07/2025 Orders Only [facility] Pathology Outreach [address] [place] [address] Vu Cruz MD Acute myeloid leukemia not having achieved remission (HCC) 01/05/2025 Orders Only [facility] Bone Marrow Transplant [facility] [address] [phone] Tamara Vital RMA Acute myeloid leukemia not having achieved remission (HCC) (Primary Dx) 01/02/2025 Orders Only [facility] Bone Marrow Transplant [facility] [address] [phone] Vu Cruz MD Acute myeloid leukemia not having achieved remission (HCC) (Primary Dx) from Last 3 Months Immunizations Immunization Administration Dates Next Due Hep B Vaccine 02/13/2012 Influenza, Quadrivalent, Split, Intramuscular ,04/24/2022 Influenza, Trivalent, IM (MDV) 03/06/2011 Influenza, Trivalent, Preservative Free, Intramu scular 02/28/2024 Tdap 02/13/2022,02/13/2012 ZOSTER Recombinant 07/07/2022,04/24/2022 Family History Medical History Relation Name Comments No Known Problems Brother 1 No Known Problems Brother 2 Lung cancer Cousin Throat cancer Maternal Grandfather Breast cancer Maternal Grandmother Breast cancer Mother Stomach cancer Mother's Sister Relation Name Status Comments Brother 1 Alive Brother 2 Alive Cousin Father Alive Maternal Grandfather Maternal Grandmother Mother Alive Mother's Sister Social History Tobacco Use Types Packs/Day Years Used Date Smoking Tobacco: Never Smokeless Tobacco: Never Tobacco Cessation:Counseling Given: Not Answered Social Connection and Isolation Panel Answer Date Recorded In a typical week, how many times do you talk on the phone with family, friends, or neighbors? More than three times a week 02/24/2025 How often do you get togethe r with friends or relatives? More than three times a week 02/24/2025 How often do you attend chur ch or zoroastrianism services? More than 4 times per year 02/24/2025 Do you belong to any clubs o r organizations such as orthodoxy groups, unions, fraternal or athletic groups, or [...] any time in the past 12 [facility], were you homeless or living in a usp (including now)? No 02/24/2025 [facility] Utilities Answer Date Recorded In the past 12 months has th e electric, gas, oil, or water company threatened to shut off services in your home? No 02/24/2025 Comments Unknown Sex and Gender Information Value Date Recorded Sex Assigned at Not on file Legal Sex Female 5:44 PM [employer] Gender Identity Not on file Sexual Orientation Not on file Obstetrics History Last Filed Vital Signs Vital Sign Reading Time Taken Comments Blood Pressure 120/79 02/23/2025 3:59 PM CDT Pulse 96 02/23/2025 3:59 PM CDT Temperature 36.7 C (98 F) 02/23/2025 3:59 PM CDT Respiratory Rate 165 02/23/2025 3:56 PM CDT Oxygen Saturation 100% 02/23/2025 3:59 PM CDT Inhaled Oxygen Concentration - - Weight 80.6 kg (177 lb 12.8 oz) 02/23/2025 3:56 PM CDT Height 165 cm (5' 4.96) 01/12/2025 9:10 AM CDT Body Mass Index 29.62 01/12/2025 9:10 AM CDT Plan of Treatment Health Maintenance Due Date Last Done Comments Cervical Cancer Screening 1972 Colon Cancer Screening-Colonoscopy 1972 Depression Screening 1972 Regular Well Visit/Exam 18-64 02/15/1990 Pneumococcal vaccine <65 (1 of 2 - PCV) 02/15/1991 Covid-19 Vaccine (3 - 2024-2 6 season) 2025 06/15/2021, 03/03/2021 Influenza Vaccine (#1) 2025 , 02/22/2023, 04/24/2022, Additional history exists Breast Cancer Screening-Mammogram 05/01/2025 05/01/2024, 05/01/2024, 04/26/2023, Additional history exists DTaP/Tdap/Td Vaccine (3 - Td or Tdap) 02/14/2032 02/13/2022, 02/13/2012 Hepatitis B Screening Completed 02/13/2012 Zoster Vaccine Completed 07/07/2022, 04/24/2022 Hepatitis C Screening Completed 02/23/2025 Procedures Procedure Name Priority Date/Time Associated Diagnosis Comments HLA HEMATOPOIETIC STEM CELL TYPING REPORT 03/03/2025 9:26 AM CDT HLA DONOR SPECIFIC ANTIBODY REPORT 02/27/2025 1:28 PM CDT HLA DONOR SPECIFIC ANTIBODY REPORT 02/27/2025 9:49 AM CDT HLA DONOR SPECIFIC ANTIBODY REPORT 02/27/2025 9:44 AM CDT EGFR Routine 02/23/2025 3:38 PM CDT Acute myeloid leukemia not having achieved remission (HCC) DIFFERENTIAL AUTO Routine 02/23/2025 3:3 8 PM CDT Acute myeloid leukemia not having achieved remission (HCC) CBC WITH AUTO DIFFERENTIAL Routine 02/23/2025 3:38 PM CDT Acute myeloid leukemia not having achieved remission (HCC) COMPREHENSIVE METABOLIC PANEL Routine 02/23/2025 3:38 PM CDT Acute myeloid leukemia not having achieved remission (HCC) ESTRADIOL Routine 02/23/2025 3:38 PM CDT Acute myeloid leukemia not having achieved remission (HCC) FOLLICLE STIMULATING HORMONE Routine 02/23/2025 3:38 PM CDT Acute myeloid leukemia not having achieved remission (HCC) HCG, BLOOD, QUANTITATIVE Routine 02/23/2025 3:38 PM CDT Acute myeloid leukemia not having achieved remission (HCC) HTLV-I/II ANTIBODIES, QUAL Routine 02/23/2025 3:38 PM CDT Acute myeloid leukemia not having achieved remission (HCC) LACTATE DEHYDROGENASE Routine 02/23/2025 3:38 PM CDT Acute myeloid leukemia not having achieved remission (HCC) LUTEINIZING HORMONE (LH) Routine 02/23/2025 3:38 PM CDT Acute myeloid leukemia not having achieved remission (HCC) MAGNESIUM Routine 02/23/2025 3:38 PM CDT Acute myeloid leukemia not having achieved remission (HCC) PROTIME-INR Routine 02/23/2025 3:38 PM CDT Acute myeloid leukemia not having achieved remission (HCC) PTH Routine 02/23/2025 3:38 PM CDT Acute myeloid leukemia not having achieved remission (HCC) APTT Routine 02/23/2025 3:38 PM CDT Acute myeloid leukemia not having achieved remission (HCC) T4, FREE Routine 02/23/2025 3:38 PM CDT Acute myeloid leukemia not having achieved remission (HCC) TRIGLYCERIDES Routine 02/23/2025 3:38 PM CDT Acute myeloid leukemia not having achieved remission (HCC) TSH Routine 02/23/2025 3:38 PM CDT Acute myeloid leukemia not having achieved remission (HCC) TYPE AND SCREEN Routine 02/23/2025 3:38 PM CDT Acute myeloid leukemia not having achieved remission (HCC) VITAMIN D 25 HYDROXY Routine 02/23/2025 3:38 PM CDT Acute myeloid leukemia not having achieved remission (HCC) URIC ACID Routine 02/23/2025 3:38 PM CDT Acute myeloid leukemia not having achieved remission (HCC) HLA ANTIBODY SCREEN BY SINGLE ANTIGEN Routine 02/23/2025 3:38 PM CDT Acute myeloid leukemia not having achieved remission (HCC) HEPATITIS PANEL, ACUTE Routine 02/23/2025 3:38 PM CDT Acute myeloid leukemia not having achieved remission (HCC) CMV, IGG Routine 02/23/2025 3:38 PM CDT Acute myeloid leukemia not having achieved remission (HCC) HEPATITIS B CORE ANTIBODY, TOTAL Routine 02/23/2025 3:38 PM CDT Acute myeloid leukemia not having achieved remission (HCC) HIV 1/2 ANTIBODY PLUS P24 ANTIGEN Routine 02/23/2025 3:38 PM CDT Acute myeloid leukemia not having achieved remission (HCC) HSV 1 ANTIBODY, IGG Routine 02/23/2025 3 :38 PM CDT Acute myeloid leukemia not having achieved remission (HCC) HSV 2 ANTIBODY, IGG Routine 02/23/2025 3 :38 PM CDT Acute myeloid leukemia not having achieved remission (HCC) RPR Routine 02/23/2025 3:38 PM CDT Acute myeloid leukemia not having achieved remission (HCC) TOXOPLASMA GONDII ANTIBODY, IGG Routine 02/23/2025 3:38 PM CDT Acute myeloid leukemia not having achieved remission (HCC) HLA ANTIBODY SCREEN - SAB (CLASS I AND CLASS II) Routine 02/23/2025 3:35 PM CDT Acute myeloid leukemia not having achieved remission (HCC) TRANSTHORACIC ECHO (TTE) COMPLETE W DOPPLER/CF W CONTRAST Routine 02/23/2025 3:27 PM CDT Acute myeloid leukemia not having achieved remission (HCC) COLLECTION TASK FOR HLA TYPING, BUCCAL Routine 02/23/2025 2:06 PM CDT Acute myeloid leukemia not having achieved remission (HCC) PULMONARY FUNCTION TEST (PFT) Routine 02/23/2025 10:46 AM CDT Acute myeloid leukemia not having achieved remission (HCC) ECG 12-LEAD Routine 02/23/2025 9:00 AM CDT Acute myeloid leukemia not having achieved remission (HCC) XR CHEST PA LATERAL 2 VIEWS Schedule Routine, Read Routine (OP Routine) 02/23/2025 8:52 AM CDT Acute myeloid leukemia not having achieved remission (HCC) HLA HEMATOPOIETIC STEM CELL TYPING REPORT 02/17/2025 8:29 AM CDT HLA HEMATOPOIETIC STEM CELL TYPING REPORT 02/13/2025 12:53 PM CDT SURGICAL PATHOLOGY Routine 01/22/2025 11 :13 AM CDT Acute myeloid leukemia not having achieved remission (HCC) HLA HEMATOPOIETIC STEM CELL TYPING REPORT 01/19/2025 1:01 PM CDT SCAN - PATHOLOGY 01/15/2025 4:43 PM CDT SURGICAL PATHOLOGY Routine 01/12/2025 1: 17 PM CDT Acute myeloid leukemia not having achieved remission (HCC) FLOW LEUKEMIA/LYMPHOMA Routine 01/12/2025 1:17 PM CDT Acute myeloid leukemia not having achieved remission (HCC) MISCELLANEOUS MOLECULAR SEND-OUT REQUEST Routine 01/12/2025 1:17 PM CDT MINIMAL RESIDUAL DISEASE-AML Routine 01/12/2025 1:17 PM CDT Acute myeloid leukemia not having achieved remission (HCC) HEMATOLOGIC MOLECULAR ALGORITHM Routine 01/12/2025 1:17 PM CDT Acute myeloid leukemia not having achieved remission (HCC) NPM1 MUTATION DETECTION BY RT-PCR, QUANTITATIVE Routine 01/12/2025 1:17 PM CDT MEASURABLE RESIDUAL DISEASE (MRD) MYELOSEQ HEME NGS PANEL WITH INTERPRETATION Routine 01/12/2025 12:52 PM CDT Acute myeloid leukemia not having achieved remission (HCC) CYTOGENETICS Routine 01/12/2025 12:52 PM CDT Acute myeloid leukemia not having achieved remission (HCC) COLLECTION TASK FOR HLA TYPING, BUCCAL Routine 01/12/2025 12:13 PM CDT Acute myeloid leukemia not having achieved remission (HCC) HLA CONFIRMATORY TYPING Routine 01/12/2025 12:11 PM CDT Acute myeloid leukemia not having achieved remission (HCC) EGFR STAT 01/12/2025 8:50 AM CDT Acute myeloid leukemia not having achieved remission (HCC) MANUAL DIFFERENTIAL STAT 01/12/2025 8 :50 AM CDT Acute myeloid leukemia not having achieved remission (HCC) CBC WITH AUTO DIFFERENTIAL STAT 01/12/2025 8:50 AM CDT Acute myeloid leukemia not having achieved remission (HCC) COMPREHENSIVE METABOLIC PANEL STAT 01/12/2025 8:50 AM CDT Acute myeloid leukemia not having achieved remission (HCC) LACTATE DEHYDROGENASE STAT 01/12/2025 8:50 AM CDT Acute myeloid leukemia not having achieved remission (HCC) TYPE AND SCREEN STAT 01/12/2025 8:50 AM CDT Acute myeloid leukemia not having achieved remission (HCC) HLA ANTIBODY SCREEN - SAB (CLASS I AND CLASS II) Routine 01/12/2025 8:50 AM CDT Acute myeloid leukemia not having achieved remission (HCC) HLA ANTIBODY SCREEN BY SINGLE ANTIGEN Routine 01/12/2025 8:50 AM CDT Acute myeloid leukemia not having achieved remission (HCC) HR HLA TYPING (CLASS I AND CLASS II) Routine 01/12/2025 8:50 AM CDT Acute myeloid leukemia not having achieved remission (HCC) HLA CLASS I DNA (ABC) RECIPIENT Routine 01/12/2025 8:50 AM CDT Acute myeloid leukemia not having achieved remission (HCC) CMV, IGG STAT 01/12/2025 8:50 AM CDT Acute myeloid leukemia not having achieved remission (HCC) SURGICAL PATHOLOGY Routine 01/08/2025 9: 44 AM CDT Acute myeloid leukemia not having achieved remission (HCC) from Last 3 Months Results * HLA Hematopoietic Stem Cell Typing Report (03/03/2025 9:26 AM CDT) us Vu Cruz MD LAB BLOOD ORDERABLES Final Re sult * HLA Donor Specific Antibody Report (02/27/2025 1:28 PM CDT) Provider Scanning LAB BLOOD ORDERABLES Final Res ult * HLA Donor Specific Antibody Report (02/27/2025 9:49 AM CDT) Provider Scanning LAB BLOOD ORDERABLES Final Res ult * HLA Donor Specific Antibody Report (02/27/2025 9:44 AM CDT) Provider Scanning LAB BLOOD ORDERABLES Final Res ult * Collection Task for HLA Antibody Screen (02/23/2025 3:38 PM CDT) HLA Antibody Screen By Single Antigen Received Blood 02/23/2025 3:38 PM CDT 02/24/2025 10:08 AM CDT Vu Cruz MD LAB BLOOD ORDERABLES Final Re sult [facility] Department [place] [address] * eGFR (02/23/2025 3:38 PM CDT) eGFR 82 >=60 mL/min/1. 73 m2 Comment: Interpretive Data Reference Interval Normal >/= 90 mL/min/1.73m2 Mildly decreased* 60 - 89 mL/min/1.73m2 Mildly to moderately decreased 45 - 59 mL/min/1.73m2 Moderately to severely decreased 30 - 44 mL/min/1.73m2 Severely decreased 15 - 29 mL/min/1.73m2 Kidney Failure < 15 mL/min/1.73m2 *Relative to young adult level Estimated glomerular filtration rate is determined by the 2020 CKD-EPI equation recommended by the National Kid[employer] (A Unifying Approach to GFR Estimation: Recommendations of the NKF-ASK Task Force on Reassessing the Inclusion of Race in Diagnosing Kidney Disease, JASN 202). The CKD-EPI equation should not be used for patients with unstable renal function and has not been validated in children and those over 70. Current interpretive data was last reviewed 2021. Blood 02/23/2025 3:38 PM CDT 02/23/2025 5:15 PM CDT Vu Cruz MD LAB BLOOD ORDERABLES Final Re sult [facility] Department [place] [address] * (ABNORMAL) Differential, auto (02/23/2025 3:38 PM CDT) Neutrophil abs 1.79 1.50 - 6.50 K/cumm Comment:Testing performed by : [facility], [address] [place] [address] Lymphocyte abs 0.25(L) 0.80 - 3.30 K/cumm CERNER BJ Comment:Testing performed by : [facility], [address] [place], [place] [phone] Monocyte abs 0.42 0.20 - 0.80 K/cumm CERNER BJ Comment:Testing performed by : [facility], [address] [place] [address] Eosinophil abs 0.01 0.00 - 0.50 K/cumm CERNER BJ Comment:Testing performed by : [facility], [address] [place] [phone] Basophil abs 0.02 0.00 - 0.10 K/cumm CERNER BJ Comment:Testing performed by : [facility], [address] [place] [address] Neutrophil pct 72.2 % CERNER BJ Comment: Interpretive Data Percent cell count reference ranges are not reported, since discordance with absolute values may lead to misinterpretation of CBC data. Current Interpretive Data was last revised on 2017. Testing performed by: [facility], [address] [place] [phone] Lymphocyte pct 9.9 % CERCHRIS DYER Comment: Interpretive Data Percent cell count reference ranges are not reported, since discordance with absolute values may lead to misinterpretation of CBC data. Current Interpretive Data was last revised on 2017. Testing performed by: [facility], [address] [place] [phone] Monocyte pct 16.8 % CERCHRIS DYER Comment: Interpretive Data Percent cell count reference ranges are not reported, since discordance with absolute values may lead to misinterpretation of CBC data. Current Interpretive Data was last revised on 2017. Testing performed by: [facility], [address] [place] [phone] Eosinophil pct 0.3 % CERCHRIS DYER Comment: Interpretive Data Percent cell count reference ranges are not reported, since discordance with absolute values may lead to misinterpretation of CBC data. Current Interpretive Data was last revised on 2017. Testing performed by: [facility], [address] [place] [phone] Basophil pct 0.7 % CERCHRIS DYER Comment: Interpretive Data Percent cell count reference ranges are not reported, since discordance with absolute values may lead to misinterpretation of CBC data. Current Interpretive Data was last revised on 2017. Testing performed by: [facility], [address] [place] [phone] Blood 02/23/2025 3:38 PM CDT 02/23/2025 3:44 PM CDT us Vu Cruz MD LAB BLOOD ORDERABLES Final Re sult BOO [facility]MA [facility] [place] [address] * HTLV-I/II antibodies, qualitative (02/23/2025 3:38 PM CDT) HTLV 1-2, Antibodies Negative Negative [place] Comment: Test Performed by: [facility] [address] [place] [address] Build And Release Manager: Ingrid Beltrán Ph.D.; CLIA# [id number] Blood 02/23/2025 3:38 PM CDT 02/23/2025 7:43 PM CDT Vu Cruz MD LAB BLOOD ORDERABLES Final Re sult Performing Organization Address [facility] Co de Phone Number [facility] [place] [address] [facility] ref [facility] * HIV 1/2 Antibody plus p24 Antigen Blood (02/23/2025 3:38 PM CDT) [facility] HIV 1/2 ab + p24 ag Nonreactive Nonreactive Comment:Nonreactive for HIV- 1 antigen and HIV-1/HIV-2 antibodies. No laboratory evidence of HIV infection. If acute HIV infection is suspected, consider testing for HIV-1 RNA. Current interpretive data was last revised on 22. Blood 02/23/2025 3:38 PM CDT 02/23/2025 5:07 PM CDT Vu Cruz MD LAB MICROBIOLOGY - GENERAL OR DERABLES Final Result Performing Organization Address [facility] de Phone Number [facility] [place] [address] * CMV, IgG Blood (02/23/2025 3:38 PM CDT) [facility] CMV IgG Negative Negative Comment: Interpretive Data Negative - Individuals with negative CMV IgG results are presumed to not have had prior exposure or infection with CMV and are, therefore, considered susceptible to primary infection. Equivocal - Equivocal results may occur during acute infection or may be due to nonspecific binding reactions. Submit an additional sample for testing if clinically indicated. Positive - Indicates presence of detectable CMV IgG antibody. Results indicate past or recent CMV infection. Blood 02/23/2025 3:38 PM CDT 02/23/2025 4:47 PM CDT Vu Cruz MD LAB MICROBIOLOGY - GENERAL OR DERABLES Final Result BOO DYER [facility] Department [place] [address] * (ABNORMAL) CBC with auto differential (02/23/2025 3:38 PM CDT) WBC 2.48(L) 3.80 - 9.90 K/cumm Comment:Testing performed by : [facility], [address] [place] [address] Hgb 9.2(L) 11.9 - 15.5 g/dL BOO DYER Comment:Testing performed by : [facility], [address] [place] [address] Hct 26.2(L) 35.6 - 45.5 % BOO DYER Comment:Testing performed by : [facility], [address] [place] [address] Plt 99(L) 150 - 400 K/cumm CERCHRIS DYER Comment:Testing performed by : [facility], [address] [place] [address] MPV 7.9 6.8 - 10.4 fL BOO DYER Comment:Testing performed by : [facility], [address] [place] [address] RBC 3.01(L) 3.90 - 5.20 M/cumm BOO DYER Comment:Testing performed by : [facility], [address] [place] [address] MCV 87.2 81.3 - 96.4 fL CERCHRIS DYER Comment:Testing performed by : [facility], [address] [place] [address] MCH 30.7 27.1 - 33.3 pg CERCHRIS DYER Comment:Testing performed by : [facility], [address] [place] [address] MCHC 35.2 32.3 - 35.7 g/dL [facility] Comment:Testing performed by : [facility], [address] [place] [phone] RDW CV 18.8(H) 11.1 - 14.9 % [facility] Comment:Testing performed by : [facility], [address] [place] [phone] NRBC abs 0.00 0.00 - 0.01 K/cumm [facility] Comment:Testing performed by : [facility], [address] [place] [phone] Blood 02/23/2025 3:38 PM CDT 02/23/2025 3:44 PM CDT Vu Cruz MD LAB BLOOD ORDERABLES Final Re sult Performing Organization Address City/[facility]/ZIP Co de Phone Number [facility] [place] [address] * Hepatitis panel, acute Blood (02/23/2025 3:38 PM CDT) Pathologist [facility] Hep A IgM Nonreactive Nonreactive Hep B core IgM Nonreactive Nonreactive [facility] Hep C Ab Nonreactive Nonreactive [facility] Comment:Antibodies to HCV no t detected. Does NOT exclude the possibility of recent exposure to HCV. Current interpretive data was last revised on 22 HepBsAg Nonreactive Nonreactive [facility] Blood 02/23/2025 3:38 PM CDT 02/23/2025 5:07 PM CDT Vu Cruz MD LAB MICROBIOLOGY - GENERAL OR DERABLES Final Result [facility] [place] [address] * Hepatitis B core antibody, total Blood (02/23/2025 3:38 PM CDT) Hep B core IgG/IgM Nonreactive Nonreactive Blood 02/23/2025 3:38 PM CDT 02/23/2025 5:07 PM CDT Vu Cruz MD LAB MICROBIOLOGY - GENERAL OR DERABLES Final Result Performing Organization Address [facility] Co de Phone Number [facility] [place] [address] * (ABNORMAL) Vitamin D 25 hydroxy (02/23/2025 3:38 PM CDT) Vitamin D 25-OH 20(L) 30 - 80 ng/mL Blood 02/23/2025 3:38 PM CDT 02/23/2025 3:49 PM CDT Vu Cruz MD LAB BLOOD ORDERABLES Final Re sult Performing Organization Address [facility] de Phone Number [facility] [place] [address] * Estradiol (02/23/2025 3:38 PM CDT) Estradiol <5.0 pg/mL Comment: Interpretive Data Males: 11 43 pg/mL Females: Premenopausal: 31 533 pg/mL Postmenopausal: < 50 pg/mL Patients treated with Fluvestrant (Faslodex) should be tested using an alternate assay such as LC-MS due to potential for cross-reactivity. Estradiol varies widely throughout the menstrual cycle. Current interpretive data was last revised 2024. Blood 02/23/2025 3:38 PM CDT 02/23/2025 4:23 PM CDT Vu Cruz MD LAB BLOOD ORDERABLES Final Re sult Performing Organization Address [facility] Co de Phone Number [facility] [place] [address] * HSV 2 IgG Antibody Blood (02/23/2025 3:38 PM CDT) [facility] HSV 2 IgG Nonreactive Nonreactive Comment: Interpretive Data 1. Nonreactive: No detectable IgG antibody to HSV-2. 2. Equivocal: Presence or absence of detectable antibodies to HSV-2 cannot be determined and the test should be repeated. 3. Reactive: Indicates presence of detectable IgG antibody to HSV-2. Current interpretive data was last revised on 2022. Blood 02/23/2025 3:38 PM CDT 02/23/2025 4:47 PM CDT Vu rCuz MD LAB MICROBIOLOGY - GENERAL OR DERABLES Final Result Performing Organization Address [facility] Co de Phone Number BOO [facility] [place] [address] * (ABNORMAL) HSV 1 IgG Antibody Blood (02/23/2025 3:38 PM CDT) [facility] HSV 1 IgG Reactive( A) Nonreactive Comment: Interpretive Data 1. Nonreactive: No detectable IgG antibody to HSV-1. 2. Equivocal: Presence or absence of detectable antibodies to HSV-1 cannot be determined and the test should be repeated. 3. Reactive: Indicates presence of detectable IgG antibody to HSV-1. Current interpretive data was last revised on 2016. Blood 02/23/2025 3:38 PM CDT 02/23/2025 4:47 PM CDT Vu Cruz MD LAB MICROBIOLOGY - GENERAL OR DERABLES Final Result Performing Organization Address City/[facility]/ZIP Co de Phone Number [facility] [place] [address] * Toxoplasma gondii antibody, IgG Blood (02/23/2025 3:38 PM CDT) [facility] Toxoplasma IgG Negative Negative Comment: Interpretive Data Negative - No detectable antibody. Equivocal - Presence of detectable antibody cannot be determined. Positive - Detectable level of antibody present. Current interpretive data was last revised on 2017. Blood 02/23/2025 3:38 PM CDT 02/23/2025 4:47 PM CDT Vu Cruz MD LAB MICROBIOLOGY - GENERAL OR DERABLES Final Result Performing Organization Address [facility] Co de Phone Number [facility] [place] [address] * RPR Blood (02/23/2025 3:38 PM CDT) RPR Nonreactive Nonreactive Blood 02/23/2025 3:38 PM CDT 02/23/2025 4:47 PM CDT Vu Cruz MD LAB MICROBIOLOGY - GENERAL OR DERABLES Final Result Performing Organization Address [facility] de Phone Number [facility] [place] [address] * aPTT (02/23/2025 3:38 PM CDT) aPTT 33 26 - 38 sec Comment: Interpretive Data Heparin therapeutic range: 66.0 - 100.0 seconds. Range based on correlation with therapeutic heparin activity range of 0.3 - 0.7 Units/mL. Current interpretive data was last revised on 2023. Blood 02/23/2025 3:38 PM CDT 02/23/2025 4:03 PM CDT Vu Cruz MD LAB BLOOD ORDERABLES Final Re sult Performing Organization Address [facility] Co de Phone Number [facility] [place] [address] * Protime-INR (02/23/2025 3:38 PM CDT) PT 12.7 10.2 - 13.5 sec INR 1.13 0.90 - 1.20 [facility] Comment: Interpretive data Oral anticoagulant therapeutic ranges: Venous thromboembolism prophylaxis or treatment: 2.0-3.0 CARDIOLOGY Standard range: 2.0-3.0 High-intensity range: 2.5-3.5 Refer to indication-specific guidelines for appropriate target ranges for prosthetic heart valve replacement. Current interpretive data was last revised on 2019. Blood 02/23/2025 3:38 PM CDT 02/23/2025 4:03 PM CDT Vu Cruz MD LAB BLOOD ORDERABLES Final Re sult Performing Organization Address City/[facility] Co de Phone Number [facility] [place] [address] * Type and screen (02/23/2025 3:38 PM CDT) ABO Rh O Positive Ros[place], indirect Negative [facility] Blood 02/23/2025 3:38 PM CDT 02/23/2025 3:58 PM CDT Narrative [facility] - 02/23/2025 4:46 PM CDT Has the patient had Daratumumab or Isatuximab in the past 6 months?->Unknown Vu Cruz MD LAB BLOOD BANK TEST ORDERABLE S Final Result Performing Organization Address [facility] Co de Phone Number [facility] [place] [address] * hCG, blood, quantitative (02/23/2025 3:38 PM CDT) hCG, quant <5.0 0.0 - 5.0 IUnits/L Comment: Interpretive Data Male: < 5 IU/L Non- premenopausal Female: <5 IU/L The Ajith hCG Beta Quant assay procedure was used. Results from different manufacturers or methods may not be comparable. Serial testing should be performed using the same method. Interpretive Data was last revised on 2023 Blood 02/23/2025 3:38 PM CDT 02/23/2025 3:49 PM CDT Vu Cruz MD LAB BLOOD ORDERABLES Final Re sult Performing Organization Address [facility] de Phone Number [facility] [place] [address] * Uric acid (02/23/2025 3:38 PM CDT) Uric acid 5.8 2.5 - 7.0 mg/dL Blood 02/23/2025 3:38 PM CDT 02/23/2025 3:49 PM CDT Vu Cruz MD LAB BLOOD ORDERABLES Final Re sult Performing Organization Address [facility] de Phone Number [facility] Department [place] [address] * (ABNORMAL) Triglycerides (02/23/2025 3:38 PM CDT) Triglycerides 568(H) <=149 mg/dL Comment: Interpretive Data Ages < or = 9 years Acceptable: <75 mg/dL Borderline high: 75-99 mg/dL High: >or= 100 mg/dL Ages 10 to 20 years Acceptable: <90 mg/dL Borderline high: 90-129 mg/dL High: >or= 130 mg/dL Ages > or = 20 years Desirable: <150 mg/dL Borderline high: 150-199 mg/dL High: 200-499 mg/dL Very high: >or= 499 mg/dL Literature References: 1. Expert Panel on Integrated Guidelines for Cardiovascular Health and Risk Reduction in Children and Adolescents. Pediatrics 2011;128:S213 2. NCEP Expert Panel. Circulation 2004;110:227 Current Interpretive Data was last revised on 2018. Blood 02/23/2025 3:38 PM CDT 02/23/2025 3:49 PM CDT Vu Cruz MD LAB BLOOD ORDERABLES Final Re sult Performing Organization Address [facility] de Phone Number [facility] [place] [address] * TSH (02/23/2025 3:38 PM CDT) Thyroid Stimulating Hormone 1.96 0.30 - 4.20 mcIUnit/mL Blood 02/23/2025 3:38 PM CDT 02/23/2025 3:49 PM CDT Vu Cruz MD LAB BLOOD ORDERABLES Final Re sult Performing Organization Address [facility] de Phone Number [facility] [place] [address] * (ABNORMAL) T4, free (02/23/2025 3:38 PM CDT) Free T4 0.81(L) 0.90 - 1.70 ng/dL Blood 02/23/2025 3:38 PM CDT 02/23/2025 3:49 PM CDT Vu Cruz MD LAB BLOOD ORDERABLES Final Re sult Performing Organization Address [facility] de Phone Number [facility] [place] [address] * PTH (02/23/2025 3:38 PM CDT) PTH 31 15 - 65 pg/mL Blood 02/23/2025 3:38 PM CDT 02/23/2025 4:47 PM CDT Vu Cruz MD LAB BLOOD ORDERABLES Final Re sult Performing Organization Address [facility] Co de Phone Number [facility] [place] [address] * Magnesium (02/23/2025 3:38 PM CDT) Pathologist [facility] Magnesium 2.0 1.4 - 2.5 mg/dL Blood 02/23/2025 3:38 PM CDT 02/23/2025 3:49 PM CDT Vu Cruz MD LAB BLOOD ORDERABLES Final Re sult Performing Organization Address [facility] [place] [address] * Lactate dehydrogenase (LD) (02/23/2025 3:38 PM CDT) Pathologist [facility] Lactate dehydrogenase (LDH) 139 100 - 250 Units/L Blood 02/23/2025 3:38 PM CDT 02/23/2025 3:49 PM CDT Vu Cruz MD LAB BLOOD ORDERABLES Final Re sult Performing Organization Address [facility] Co de Phone Number [facility] [place] [address] * LH (02/23/2025 3:38 PM CDT) Pathologist [facility] LH 74.4 IUnits/L Comment: Interpretive Data Males: Adults: 1.7 - 8.6 IUnits/L Females: Follicular: 2.4 - 12.6 IUnits/L Ovulation: 14.0 - 95.6 IUnits/L Luteal: 1.0 - 11.4 IUnits/L Postmenopausal: 7.7 - 58.5 IUnits/L Current interpretive data was last revised on 2018. Blood 02/23/2025 3:38 PM CDT 02/23/2025 4:23 PM CDT Vu Cruz MD LAB BLOOD ORDERABLES Final Re sult Performing Organization Address [facility] de Phone Number [facility] Department [place] [address] * Follicle stimulating hormone (02/23/2025 3:38 PM CDT) FSH 116.0 IUnits/L Comment: Interpretive Data Male: Adults: 1.5 - 12.4 IUnits/L Female: Follicular: 3.5 - 12.5 IUnits/L Ovulation: 4.7 - 21.5 IUnits/L Luteal: 1.7 - 7.7 IUnits/L Postmenopausal: 25.8 - 134.8 IUnits/L Current interpretive data was last revised 2015. Blood 02/23/2025 3:38 PM CDT 02/23/2025 4:23 PM CDT Vu Cruz MD LAB BLOOD ORDERABLES Final Re sult Performing Organization Address [facility] de Phone Number [facility] Department [place] [address] * (ABNORMAL) Comprehensive metabolic panel (02/23/2025 3:38 PM CDT) Pathologist [facility] Sodium 141 135 - 145 mmol/L Potassium, pl 3.4 3.3 - 4.9 mmol/L [facility] Chloride 109 97 - 110 mmol/L [facility] CO2 20(L) 22 - 32 mmol/L [facility] Anion gap 12 2 - 15 mmol/L [facility] BUN 15 6 - 25 mg/dL [facility] Creatinine 0.85 0.60 - 1.10 mg/dL [facility] Glucose 126 70 - 199 mg/dL [facility] Comment: Interpretive Data Fasting glucose >/= 126 mg/dl is diagnostic for diabetes. Fasting is defined as no caloric intake for at least 8 hours. Fasting glucose between 100 mg/dl to 125 mg/dl is diagnostic of prediabetes. In a patient with classic symptoms of hyperglycemia or hyperglycemic crisis, a random glucose >/= 200 mg/dl is diagnostic for diabetes. In the absence of unequivocal hyperglycemia, results should be confirmed by repeat testing. The classification and Diagnosis of Diabetes Diabetes Care 2021; 46: S19-S40. Current interpretive data was last revised 2022. Calcium 9.3 8.5 - 10.3 mg/dL [facility] Bilirubin, total <0.2 0.1 - 1.2 mg/dL [facility] Protein, pl 6.6 6.5 - 8.5 g/dL [facility]ER [facility] Albumin 3.8 3.5 - 5.0 g/dL [facility] Alk phos 113 40 - 130 Units/L [facility] ALT 15 7 - 45 Units/L [facility] AST 16 10 - 45 Units/L [facility] Blood 02/23/2025 3:38 PM CDT 02/23/2025 3:49 PM CDT Vu Cruz MD LAB BLOOD ORDERABLES Final Re sult [facility] [place] [address] * HLA Antibody Screen - SAB (Class I and Class II) (02/23/2025 3:35 PM CDT) Class I Treatment EDTA HISTOTRAC Class I Dilution 1:1 HISTOTRAC Class I Tested Date 02/24/2025 HISTOTRAC Class I Result Positive HISTOTRAC Class I CPRA 88 HISTOTRAC Class I Increased Risk A3 HISTOTRAC Class I Moderate Risk A2, A11, A29, A30, A31, A33, A34, A66, A68, A69, A74 HISTOTRAC Class I Low Risk A1, A26, A36, A43, A80 HISTOTRAC Class II Treatment EDTA HISTOTRAC Class II Dilution 1:1 HISTOTRAC Class II Tested Date 02/24/2025 HISTOTRAC Class II Result Positive HISTOTRAC Class II CPRA 70 HISTOTRAC Class II Increased Risk DR16; DQ4, DQ5, DQ6 [facility]ISTOTRAC Class II Moderate Risk DR15 H[facility]OTRAC Class II Low Risk DR9, DR15, DR51 [facility] Blood 02/23/2025 3:35 PM CDT 02/25/2025 10:02 AM CDT Narrative H[facility] - 02/25/2025 10:02 AM CDT Single-antigen HLA antibody screen is performed on serum samples using a method developed and validated by the [facility] HLA laboratory based on an FDA-approved IVD kit (LABScreen Single-Antigen, [employer], [place], [place]). All patient serum samples are pretreated with EDTA before the screen to prevent complement interference. Additional serum treatments, such as adsorption and DTT treatment, may be performed as indicated. Interpretive comments: Low risk: MFI [id number]. Moderate risk: MFI 0389-6941. Increased risk: MFI >/= 5000. The presence of an antigen in two or more risk categories may indicate a mixed reactivity pattern among beads of multiple subtypes. Preformed donor-specific antibodies (DSA) with MFI above 2000 are predictive of positive cytotoxicity crossmatch (Hum Immunol 2010;71:268-73. Hum Immunol 2012;73:497- 604) and carry a higher risk of humoral rejection. For our solid-organ transplant programs, unacceptable antigens (UA) for transplant candidates are defined by MFI >/= 2000 with some exceptions. UA are listed at [facility] and used to generate calculated PRA (cPRA) rounded to the nearest integer. In the post-transplant setting, MFI values from donor-specific beads are listed in the DSA report to provide additional information. It is important to note that this test is approved as a qualitative test and the MFI values are not strictly linear. For platelet refractoriness: An empirical cutoff value of MFI >/= 2000 has been used in our center; a higher cutoff value such as 5000 may also be suitable for highly sensitized patients to prioritize the antigens to avoid. Testing performed at the [facility], [address] [place] [address], 5th floor, [place], [address]. CLIA # [id number]. Prabha Ghosh, Ph.D., Records Officer, HLA Laboratory Joe Lorenz M.D., Ph.D., Continuity Coordinator, HLA Laboratory Adalgisa Jordan, Ph.D., VIVIENIA Continuity Coordinator, [facility] Clinical Laboratories Current methodology and interpretive comments last revised on 07/13/2022. us Vu Cruz MD LAB BLOOD ORDERABLES Final Re sult HISTOTRAC * TRANSTHORACIC ECHO (TTE) COMPLETE W DOPPLER/CF W CONTRAST (02/23/2025 3:27 PM CDT) EF Mod BP 58 % CONS SCIMAGE Anatomical Region Laterality Modality Ultrasound 02/23/2025 1:56 PM CDT Narrative 02/23/2025 3:43 PM CDT [facility] [place] [address] Transthoracic Echocardiographic Report Patient Name: JUNIE SLADE L : 1970 (55y ) Sex: F Study Date: 02/23/2025 01:56:23 PM Ht(Inch): 65 Wt(Lb): 175.05 BSA: 1.91 Plant Tech: Maki Cuello RDCS Location: [facility] Order Provider: VU CRUZ Heart Rate: 75 BMI: 29.13 BP: 125 / 90 Ref Provider: VU CRUZ PROCEDURES: Echocardiographic Report: Transthoracic complete echo with strain imaging and contrast, 2D, spectral and tissue Doppler, color flow Doppler, M-mode. Contrast: Contrast Enhancement was Employed: Due to suboptimal image quality with inadequate visualization of at least 2 of 16 LV wall segments in any view after initial imaging. Perflutren contrast was administered using the volume necessary to obtain adequate images. 1.1 ml Optison Administered, (1.9 ml wasted). 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 CONCLUSIONS: 1. Normal left ventricular size based on volume index. Concentric LV remodeling. Normal left ventricular systolic function. The Ejection Fraction (Owusu's) is measured at 58 %. Normal diastolic function. The average global longitudinal strain is borderline. 2. There are no regional wall motion abnormalities. 3. Normal right ventricular size. Normal right ventricular systolic function. 4. There is no significant valvular heart disease. 5. Small pericardial effusion. No echocardiographic evidence to suggest cardiac tamponade. 6. Unable to determine PASP due to inadequate TR jet. COMPARISONS: No previous study available for comparison. ATTESTATION: I have personally reviewed and interpreted this study without fellow or resident. DISCLAIMER: The study images and the final report will be retained in the patient chart by the [facility] for the legally required time period. This chart constitutes the legal record of any testing performed. FINDINGS: Left Ventricle: Normal left ventricular size based on volume index. Concentric LV remodeling. Normal left ventricular systolic function. The Ejection Fraction (Owusu's) is measured at 58 %. Normal diastolic function. The average global longitudinal strain is borderline. The LV global strain is: -17.8 %. Regional Wall Motion: There are no regional wall motion abnormalities. Right Ventricle: Normal right ventricular size. Normal right ventricular systolic function. Left Atrium: The left atrium is normal in size. Right Atrium: The right atrium is normal in size. Atrial Septum: Normal interatrial septum. Mitral Valve: Normal mitral valve structure. No mitral regurgitation. No stenosis present. Aortic Valve: Normal trileaflet aortic valve. No aortic regurgitation. No aortic valve stenosis. The mean transaortic gradient is 4 mmHg. The aortic valve area by the continuity equation (using VTI) is 2.48 cm2. Aortic valve dimensionless index is 0.70. Tricuspid Valve: Normal tricuspid valve structure. No tricuspid regurgitation. No tricuspid valve stenosis. Pulmonic Valve: Normal pulmonic valve structure. Mild pulmonic regurgitation. No pulmonic valve stenosis present. Pericardium: Small pericardial effusion. The pericardial effusion is posterior to the heart. No echocardiographic evidence to suggest cardiac tamponade. Aorta: Mild aortic root dilation at sinuses of Valsalva. Normal aortic root size when indexed. The ascending aorta is normal in size when indexed. IVC: IVC is normal in size. The IVC was <2.1 cm and collapsibility >50%. (est. RA pressure 0-5 mmHg). PASP: Unable to determine PASP due to inadequate TR jet. Rhythm: Normal Sinus rhythm was seen during the study. MEASUREMENTS: 2D/MM Value Range Doppler Value Range LVIDd 2D 4.02 cm [ 3.80 - 5.20 ] AV Peak Roberto 1.2 m/s [ 1.0 - 1.7 ] LVIDs 2D 2.85 cm [ 2.20 - 3.50 ] AV Peak PG 5.76 mmHg IVSd 2D 0.96 cm [ 0.60 - 0.90 ] AV Mean PG 4 mmHg LVPWd 2D 0.98 cm [ 0.60 - 0.90 ] AV VTI 28.4 cm LV Thickness Ratio 1.0 LVOT Peak Roberto 1.0 m/s [ 0.7 - 1.1 ] LV FS 2D 29.22 % [ 27.00 - 45.00 ] LVOT Peak PG 4.00 mmHg LV Mass 2D 124.77 g LVOT Mean PG 2 mmHg LV Mass Index 2D 65.38 g/m2 LVOT VTI 20.0 cm RWT 0.49 LVOT Diam 2.12 cm EDV Mod BP 105.51 ml [ 46.00 - 106.00 ] NORBERT VTI 2.48 cm2 LV EDV Index 55.29 ml/m2 LVOT/AV VTI 0.70 - Dimensionless index (DVI) ESV Mod BP 44.84 ml [ 14.00 - 42.00 ] MV E Peak Roberto 0.8 m/s [ 0.6 - 1.3 ] EF Mod BP 58 % [ 54 - 74 ] MV A Peak Roberto 0.7 m/s [ 1.0 - 1.2 ] LV GLS -17.8 % [ -25.0 - -18.0 ] MV E/A 1.1 ratio [ 0.8 - 1.5 ] LA Length 4C 6.21 cm MV Decel Time 224.16 msec [ 104.00 - 258.00 ] LA Length 2C 5.12 cm Med E` Roberto 6.3 cm/sec [ 8.0 - 25.0 ] LA Volume BP 56.77 ml Lat E` Roberto 10.1 cm/sec [ 10.0 - 25.0 ] LA Volume Index 29.75 ml/m2 [ 16.00 - 34.00 ] Average E/E` 9.76 RV Base Dimen 2D 3.3 cm [ 2.5 - 4.2 ] RV S` 13.25 cm/sec TAPSE 2.24 cm [ 1.71 - 5.00 ] PV Peak Roberto 0.9 m/s [ 0.4 - 0.8 ] RA Volume 24.01 ml PV Peak PG 3.24 mmHg RA Volume Index 12.58 ml/m2 IVC Diam 1.02 cm IVC Collapse 57 % AoR Diam 2D 3.33 cm [ 2.70 - 3.70 ] Ao Root Index 1.75 cm/m2 [ 1.00 - 2.00 ] Asc Ao Diam 2D 2.68 cm Asc Ao Index 1.40 cm/m2 Electronically Signed By: Gold Greco MD 02/23/2025 3:43:13 PM CDT Procedure Note Gold Gray MD - 02/23/2025 [facility] Cardiac [place] [address] Transthoracic Echocardiographic Report Patient Name: JUNIE SLADE L : 1970 (55y ) Sex: F Study Date: 02/23/2025 01:56:23 PM Ht(Inch): 65 Wt(Lb): 175.05 BSA: 1.91 Plant Tech: Maki Cuello RDCS Location: [facility] Order Provider: VU CRUZ Heart Rate: 75 BMI: 29.13 BP: 125 / 90 Ref Provider: VU CRUZ PROCEDURES: Echocardiographic Report: Transthoracic complete echo with strain imagingand contrast, 2D, spectral and tissue Doppler, color flow Doppler, M-mode. Contrast: Contrast Enhancement was Employed: Due to suboptimal imagequality with inadequate visualization of at least 2 of 16 LV wall segments in any viewafter initial imaging. Perflutren contrast was administered using the volume necessaryto obtain adequate images. 1.1 ml Optison Administered, (1.9 ml wasted). 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 CONCLUSIONS: 1. Normal left ventricular size based on volume index. Concentric LVremodeling. Normal left ventricular systolic function. The Ejection Fraction (Owusu's) ismeasured at 58 %. Normal diastolic function. The average global longitudinal strain isborderline. 2. There are no regional wall motion abnormalities. 3. Normal right ventricular size. Normal right ventricular systolicfunction. 4. There is no significant valvular heart disease. 5. Small pericardial effusion. No echocardiographic evidence to suggestcardiac tamponade. 6. Unable to determine PASP due to inadequate TR jet. COMPARISONS: No previous study available for comparison. ATTESTATION: I have personally reviewed and interpreted this study without fellow orresident. DISCLAIMER: The study images and the final report will be retained in the patientchart by the [facility] for the legally required time period. This chart constitutesthe legal record of any testing performed. FINDINGS: Left Ventricle: Normal left ventricular size based on volume index.Concentric LV remodeling. Normal left ventricular systolic function. The EjectionFraction (Owusu's) is measured at 58 %. Normal diastolic function. The average globallongitudinal strain is borderline. The LV global strain is: -17.8 %. Regional Wall Motion: There are no regional wall motion abnormalities. Right Ventricle: Normal right ventricular size. Normal right ventricularsystolic function. Left Atrium: The left atrium is normal in size. Right Atrium: The right atrium is normal in size. Atrial Septum: Normal interatrial septum. Mitral Valve: Normal mitral valve structure. No mitral regurgitation. Nostenosis present. Aortic Valve: Normal trileaflet aortic valve. No aortic regurgitation. Noaortic valve stenosis. The mean transaortic gradient is 4 mmHg. The aortic valve areaby the continuity equation (using VTI) is 2.48 cm2. Aortic valve dimensionlessindex is 0.70. Tricuspid Valve: Normal tricuspid valve structure. No tricuspidregurgitation. No tricuspid valve stenosis. Pulmonic Valve: Normal pulmonic valve structure. Mild pulmonicregurgitation. No pulmonic valve stenosis present. Pericardium: Small pericardial effusion. The pericardial effusion isposterior to the heart. No echocardiographic evidence to suggest cardiac tamponade. Aorta: Mild aortic root dilation at sinuses of Valsalva. Normal aorticroot size when indexed. The ascending aorta is normal in size when indexed. IVC: IVC is normal in size. The IVC was <2.1 cm and collapsibility >50%.(est. RA pressure 0-5 mmHg). PASP: Unable to determine PASP due to inadequate TR jet. Rhythm: Normal Sinus rhythm was seen during the study. MEASUREMENTS: 2D/MM Value Range DopplerValue Range LVIDd 2D 4.02 cm [ 3.80 - 5.20 ] AV Peak Vel1.2 m/s [ 1.0 - 1.7 ] LVIDs 2D 2.85 cm [ 2.20 - 3.50 ] AV Peak PG5.76 mmHg IVSd 2D 0.96 cm [ 0.60 - 0.90 ] AV Mean PG4 mmHg LVPWd 2D 0.98 cm [ 0.60 - 0.90 ] AV VTI28.4 cm LV Thickness Ratio 1.0 LVOT Peak Vel1.0 m/s [ 0.7 - 1.1 ] LV FS 2D 29.22 % [ 27.00 - 45.00 ] LVOT Peak PG4.00 mmHg LV Mass 2D 124.77 g LVOT Mean PG2 mmHg LV Mass Index 2D 65.38 g/m2 LVOT VTI20.0 cm RWT 0.49 LVOT Diam2.12 cm EDV Mod BP 105.51 ml [ 46.00 - 106.00 ] NORBERT VTI2.48 cm2 LV EDV Index 55.29 ml/m2 LVOT/AV VTI0.70 - Dimensionless index (DVI) ESV Mod BP 44.84 ml [ 14.00 - 42.00 ] MV E Peak Vel0.8 m/s [ 0.6 - 1.3 ] EF Mod BP 58 % [ 54 - 74 ] MV A Peak Vel0.7 m/s [ 1.0 - 1.2 ] LV GLS -17.8 % [ -25.0 - -18.0 ] MV E/A1.1 ratio [ 0.8 - 1.5 ] LA Length 4C 6.21 cm MV Decel Vquq305.16 msec [ 104.00 - 258.00 ] LA Length 2C 5.12 cm Med E` Vel6.3 cm/sec [ 8.0 - 25.0 ] LA Volume BP 56.77 ml Lat E` Vel10.1 cm/sec [ 10.0 - 25.0 ] LA Volume Index 29.75 ml/m2 [ 16.00 - 34.00 ] Average E/E`9.76 RV Base Dimen 2D 3.3 cm [ 2.5 - 4.2 ] RV S`13.25 cm/sec TAPSE 2.24 cm [ 1.71 - 5.00 ] PV Peak Vel0.9 m/s [ 0.4 - 0.8 ] RA Volume 24.01 ml PV Peak PG3.24 mmHg RA Volume Index12.58 ml/m2 IVC Diam1.02 cm IVC Collapse 57 % AoR Diam 2D 3.33 cm [ 2.70 - 3.70 ] Ao Root Index 1.75 cm/m2 [ 1.00 - 2.00 ] Asc Ao Diam 2D2.68 cm Asc Ao Index1.40 cm/m2 Electronically Signed By: Gold Greco MD 02/23/2025 3:43:13 PM CDT Vu Cruz MD CV ECHO PROCEDURES Final Resu lt * Collection task for HLA Typing, Buccal (02/23/2025 2:06 PM CDT) HLA typing, buccal collection Received Buccal swab 02/23/2025 2:06 PM CDT 02/24/2025 10:08 AM CDT Vu Cruz MD LAB BODY FLUIDS AND STOOLS OR DERABLES Final Result [facility] Department [place] [address] * Pulmonary Function Test - (02/23/2025 10:46 AM CDT) Pathologist [facility] FVC PRE 3.77 L [facility] FVC %PRE PRED 114 % [facility] FVC POST 3.89 L [facility] FVC %POST PRED 118 % [facility] FEV1 PRE 3.03 L [facility] FEV1 %PRE PRED 114 % [facility] FEV1 POST 3.18 L [facility] FEV1 %POST PRED 119 % [facility] FEV1/FVC PRE 80.4 % [facility] FEV1/FVC POST 81.7 % [facility] FRC PL PRE 2.[address] [facility] FRC PL %PRE PRED 88 % [facility] RV PRE 1.59 L [facility] RV %PRE PRED 83 % [facility] TLC PRE 5.32 L [facility] TLC %PRE PRED 102 % [facility] DLCO PRE 17.0 ml/min/mmH g [facility] DLCO %PRE PRED 81 % [facility] Anatomical Region Laterality Modality PFT 02/23/2025 10:1 3 AM CDT Narrative 02/23/2025 1:51 PM CDT Corrected DLCO PFT performed at:->[facility] PFT ACB1A Procedure:->Spirometry Procedure:->Spirometry with Bronchodilator Procedure:->DLCO DLCO:->Lung volumes Lung Volumes via:->Pleth with Airway Resistance Pulmonary Function Test Interpretation SPIROMETRY: The FEV1 and FVC are normal. The FEV1 to FVC ratio is normal. There is no significant improvement after inhaling a single dose of albuterol. The flow volume loop is normal. LUNG VOLUMES: TLC measured by plethysmography is normal. DLCO: The diffusing capacity is normal. Note that the value for diffusing capacity is not corrected for hemoglobin and that anemia may decrease the reported value. Impression: There is no ventilatory defect. There is no impairment of alveolar gas exchange by DLCO. Tobin Fenton MD The attending pulmonary physician certifies a physician presence in the [facility] during the administration of aerosolized bronchodilator. The attending pulmonary physician certifies that he/she has reviewed and interpreted the graphic and numerical data of this pulmonary function study and agrees with the written final report. The lower limit of normal for PaO2 and %HbO2 is age dependent. However, the [facility] defines hypoxemia as a PaO2 <56 mm Hg or a %HbO2 <89%. Starting on June of 2024 the [facility] utilizes race neutral GLI Global normative equations. Vu Cruz MD PFT ORDERABLES Final Result * ECG 12 lead (02/23/2025 9:00 AM CDT) Pathologist [facility] Ventricular Rate EKG/Min 94 BPM [facility] Atrial Rate 94 BPM [facility] PA-Interval (MSEC) 146 ms [facility] QRS-Interval (MSEC) 68 ms [facility] QT-Interval (MSEC) 372 ms [facility] QTc 465 ms [facility] P [place] 54 degrees [facility] R [place] 46 degrees [facility] T [place] 59 degrees [facility] Diagnosis Normal sinus rhythm Low voltage QRS Cannot rule out Anterior infarct , age undetermined Abnormal ECG No previous ECGs available Confirmed by Breann Mcclain MD ([id number]) on 02/24/2025 9:22:16 AM [facility] 02/23/2025 9:00 AM CDT 02/24/2025 9:22 AM CDT Vu Cruz MD ECG ORDERABLES Final Result [facility] * XR Chest Pa Lateral 2 Views (02/23/2025 8:52 AM CDT) Anatomical Region Laterality Modality Body, Chest N/A Computed Radiogr aphy 02/23/2025 11:5 2 AM CDT Impressions 02/23/2025 11:57 AM CDT There are no relevant prior radiographs available for comparison. Right upper extremity peripherally inserted central venous catheter tip terminates in the superior cavoatrial junction. The left posterior costophrenic angle is excluded from the film on lateral. The cardiomediastinal silhouette is normal. No mass or consolidation. No pleural effusion. No pneumothorax. Dictated by: Brody Amor M.D. The radiology attending physician has personally reviewed this study, and had reviewed and/or edited this written report and agrees with it. Electronically signed by: Brissa Nguyen M.D. Narrative 02/23/2025 11:57 AM CDT EXAMINATION: 2 view chest radiograph Procedure Note Brissa Nguyen MD - 02/23/2025 EXAMINATION: 2 view chest radiograph IMPRESSION: There are no relevant prior radiographs available for comparison. Right upper extremity peripherally inserted central venous catheter tip terminates in the superior cavoatrial junction. The left posterior costophrenic angle is excluded from the film on lateral. The cardiomediastinal silhouette is normal. No mass or consolidation. No pleural effusion. No pneumothorax. Dictated by: Brody Amor M.D. The radiology attending physician has personally reviewed this study, and had reviewed and/or edited this written report and agrees with it. Electronically signed by: Brissa Nguyen M.D. Vu Cruz MD IMG XR PROCEDURES Final Resul t * HLA Hematopoietic Stem Cell Typing Report (02/17/2025 8:29 AM CDT) Emilia Johnston NP LAB BLOOD ORDERABLES Final Result * HLA Hematopoietic Stem Cell Typing Report (02/13/2025 12:53 PM CDT) Vu Cruz MD LAB BLOOD ORDERABLES Final Re sult * Surgical pathology (01/22/2025 11:13 AM CDT) Tissue (Miscellaneous) 01/22/2025 11:13 AM CDT 01/22/2025 11:13 AM CDT Narrative [facility] PATHOLOGY LAB - 01/23/2025 2:57 PM CDT EPIC results best viewed via link to PDF [facility] [address], [address], [place] [address] Note to Patients: This report may contain a detailed description of human tissue sent by a health care provider to the laboratory for pathologic evaluation. The content of this report is essential for diagnosis and may provide important critical findings. This information may be unfamiliar to patients to review without a medical professional present. It is advised that the patient review this report in the presence of a health care provider who can answer questions and explain the details. SURGICAL PATHOLOGY REPORT * Consult Report * [facility] is providing an additional review of previously collected tissue. FINAL Patient Name: JUNIE SLADE Address: [address] [place] [address] Gender: F : 1970 (Age: 54) Hospital #: [id number] Patient Type: [facility] Location: UNKNOWN Taken: 01/22/2025 Received: 01/22/2025 Accessioned: 01/23/2025 Reported: 01/23/2025 Physician(s): Vu Cruz M.D. [facility] Department of Pathology [address] [place] [id number] P: [phone] ext [phone] F: [phone] Diagnosis: Consult material received from [place], [place] (OSC: AB25-79; 10/24/2024). Bone marrow, left posterior iliac crest, core biopsy and aspirate, and peripheral blood smear - Acute myeloid leukemia with NPM1 mutation - see comment [facility]/01/23/2025 14:57 By this signature, I attest that the above diagnosis is based upon my personal examination of the slides(and/or other material indicated in the diagnosis). Chidi Sanchez M.D. Report Electronically Reviewed and Signed Out By Chidi Sanchez M.D. 01/23/2025 14:57:44 Microscopic Description and Comment: Consult material received from [facility], [place], [place] (OSC: AB25-79; 10/24/2024). Peripheral blood: Per outside report, the CBC dated 10/27/2024 shows: WBC: 28.16 k/uL, Hgb 9.7 g/dL, Hct 28.4%, MCV 105.2 fL, MCHC 34.2 g/dL, RDW 14.6%, Plts 48 k/UL with a differential count of neutrophils: 28%, lymphocytes: 19%, monocytes: 1%, eosinophils: 1%, basophils: 0%, blasts: 49% Peripheral blood smear morphology reflects the CBC values. Bone marrow aspirate smear, core, and clot: Aspirate smear The Uydrkg-Lszwrm-jtkejee bone marrow aspirate smear is cellular with adequate spicules. The majority of the cellularity is composed of a markedly increased blast population with minimal evidence of maturation. The blasts are lfpufn-hh-ovwbh in size with scant to moderate cytoplasm, rounded to slightly irregular nuclei, fine chromatin, and variably prominent nucleoli. Malaika rods are not identified. Megakaryocytes are markedly decreased. Erythroid lineage cells are markedly decreased with occasional nuclear-cytoplasmic dyssynchrony. Iron stain shows decreased iron stores with no ring sideroblasts identified. Manual differential count (aspirate smear): A 300-cell manual differential count shows: Blasts: 88%, Promyelocytes: 0%, Myelocytes: 0%, Metamyelocytes: 0%, Bands/Neutrophils: 5% Erythroids: 1%, Plasma cells: 1%, Lymphocytes: 5%, Eosinophils: 0% Core biopsy: H&E-stained sections of the bone marrow core biopsy show markedly hypercellular marrow (>95%) composed predominantly of immature mononuclear cells. Flow cytometry: Flow cytometric analysis reported a myeloblast population comprising 80% of the total cellularity. Per report, the blasts express CD34 (partial), CD13, CD33 (dim), CD117 (dim/partial), HLA-DR (partial), and cMPO (partial), and are negative for CD14, CD64, CD11b, CD3, CD20, CD19, and nTdT. Cytogenetics: Cytogenetic analysis report provided by the referring institution showed a normal karyotype. Fluorescent in-situ hybridization (FISH) reports negative results for PML::KHUSHI fusion, inv(16) and t(16;16), BCR::ABL1 fusion, monosomy 5/deletion 5q, monosomy 7/deletion 7q, trisomy 8, deletion 20q, and MECOM (EVI1) rearrangement. NGS: NGS studies performed by [employer] detect pathogenic variants in NPM1, FLT3 ITD (3 distinct variants), and GATA2. Siva Muro D.O. 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 Materials Received: Received for review are fifteen slides labeled [id number], accompanied by a corresponding pathology report. The material originates from [place], [place]. Selected slide(s) may be digitally scanned for our files, and all materials are returned to the referring institution, along with a copy of our final report. By this signature, I attest that the above diagnosis is based upon my personal examination of the slides(and/or other material). Mala Cisneros M.D. Any testing required for diagnostic purposes was performed in the Department of Pathology and Immunology at [facility], [address] [place] [address] CLIA # [id number] The performance characteristics of the testing cited in this report (if any) were determined by the [facility] Department of Pathology and Immunology [facility], as part of an ongoing quality control associate program and in compliance with federally mandated regulations drawn from the Clinical Laboratory Improvement Act of 1988 (CLIA '88). Some of these tests rely on the use of analyte specific reagents (ASR) and are subject to specific labeling requirements by the US Food and Drug Administration. Such diagnostic tests may only be performed in a facility that is certified by the Department of Health and Human Services as a high complexity laboratory under CLIA '88. The FDA has determined that such clearance or approval is not necessary. ASRs should not be regarded as investigational or for research. ASRs were developed and the performance characteristics determined by the [facility], [facility] Department of Pathology and Immunology. It has not been cleared or approved by the U.S. Food and Drug Administration. Any test designated as LDT was developed and its performance characteristics determined by [facility]. It has not been cleared or approved by the FDA. This test is used for clinical purposes and should not be regarded as investigational or for research. Report images and/or scanned reports, if included, only viewable in PDF version of report. Vu Crzu MD LAB PATHOLOGY ORDERABLES Lilina l Result Performing Organization Address City/[facility]/ZIP Co de Phone Number [facility] [address] [place] [address] * HLA Hematopoietic Stem Cell Typing Report (01/19/2025 1:01 PM CDT) Vu Cruz MD LAB BLOOD ORDERABLES Final Re sult * SCAN - PATHOLOGY (01/15/2025 4:43 PM CDT) Provider Scanning Final Result * NPM1 Mutation Detection by RT-PCR, Quantitative Bone marrow (01/12/2025 1:17 PM CDT) Pathologist [facility] NPM1 Report See attached scanned report for results. Bone marrow 01/12/2025 1:17 PM CDT 01/13/2025 3:22 PM CDT Vu Cruz MD LAB MICROBIOLOGY - GENERAL OR DERABLES Final Result Performing Organization Address [facility] Co de Phone Number [facility] Department [place] [address] * Minimal Residual Disease-AML (01/12/2025 1:17 PM CDT) MRD-AML See scanned report Comment: Testing performed by: [facility] [address], [address] [place] [address] Revised on 03/06/2018 Bone marrow 01/12/2025 1:17 PM CDT 01/13/2025 10:59 AM CDT Narrative [facility] - 01/15/2025 5:22 PM CDT Clinical History / Treatment Plan:->AML post induction Vu Cruz MD LAB BODY FLUIDS AND STOOLS OR DERABLES Final Result [facility] Department [place] [address] * Flow Leukemia/Lymphoma Bone marrow (01/12/2025 1:17 PM CDT) [place] Stain Test Completed Leukemia/Lymp jennifer Result See separate Surgical Pathology report. [facility] Bone marrow 01/12/2025 1:17 PM CDT 01/12/2025 5:37 PM CDT Narrative [facility] - 01/12/2025 9:42 PM CDT Tube information: Green top (Sodium Heparin) Vu Cruz MD LAB PATHOLOGY ORDERABLES Lilian l Result Performing Organization Address [facility]/ZIP Co de Phone Number [facility] Department [place] [address] * -Miscellaneous Molecular Send-out Request (01/12/2025 1:17 PM CDT) Result 1 Test Name: _FLT3 ITD MRD by NGS (Lab PMM) Specimen Type: _BM Result: See attached scanned report for results. Test name FLT3 ITD MRD by NGS (Lab PMM) [facility] Bone marrow 01/12/2025 1:17 PM CDT 01/15/2025 11:48 AM CDT Narrative [facility] - 01/26/2025 11:45 AM CDT Ordered per A Vu Cruz MD LAB GENETIC TESTING Final Res ult Performing Organization Address City/[facility]/ZIP Co de Phone Number [facility] [place] [address] * Hematologic Molecular Algorithm Bone marrow (01/12/2025 1:17 PM CDT) Heme Molecular Algorithm Received Bone marrow 01/12/2025 1:17 PM CDT 01/12/2025 6:35 PM CDT Narrative [facility] - 01/15/2025 1:30 PM CDT Tube information: [place] top Clinical History / Treatment Plan:->AML post induction Select diagnosis - - Appropriate molecular tests will be performed based on histopathological diagnosis.->AML 01/15/2025 - HMA complete. FLT3 ITD MRD testing ordered. us Vu Cruz MD LAB BODY FLUIDS AND STOOLS OR DERABLES Final Result [facility] Department [place] [address] * Surgical pathology (01/12/2025 1:17 PM CDT) Bone marrow (Bone Marrow Biopsy) 01/12/2025 1:17 PM CDT 01/12/2025 2:47 PM CDT Narrative PATHOLOGY [facility] - 01/13/2025 3:39 PM CDT EPIC results best viewed via link to PDF [facility] [place] [address] Note to Patients: This report may contain a detailed description of human tissue sent by a health care provider to the laboratory for pathologic evaluation. The content of this report is essential for diagnosis and may provide important critical findings. This information may be unfamiliar to patients to review without a medical professional present. It is advised that the patient review this report in the presence of a health care provider who can answer questions and explain the details. SURGICAL PATHOLOGY REPORT FINAL WITH ADDENDUM Patient Name: JUNIE SLADE Gender: F : 1970 (Age: 54) Address: [address] [place] [id number] Hospital #: [id number] Taken:01/12/2025 Received:01/12/2025 Reported: 01/13/2025 Patient Type: [facility] Service: Laboratory Location: Physician(s): Vu Cruz M.D. Diagnosis: Bone marrow, right posterior iliac crest, core biopsy, clot, and aspirate: - Hypocellular bone marrow with panhypoplasia - No morphologic evidence of acute leukemia - See comment jebe/01/13/2025 14:41 By this signature, I attest that the above diagnosis is based upon my personal examination of the slides(and/or other material indicated in the diagnosis). Tho Villafuerte M.D. Report Electronically Reviewed and Signed Out By Tho Villafuerte M.D. 01/13/2025 15:39:57 Diagnosis Comment For details on the peripheral blood smear (if submitted), bone marrow aspirate, and core biopsy, please see the attached synoptic report. If applicable, correlation with concurrent flow cytometry (Addenda/Procedures below), cytogenetics/FISH, and molecular studies is suggested for full evaluation. Microscopic Description and Comment: Microscopic examination substantiates the above cited diagnosis. Mala Cisneros M.D. History: The patient is a 54-year-old woman with a history of AML status post induction therapy complicated by prolonged cytopenias. Operative procedure: Bone marrow biopsy. Specimen(s) Received: A: Bone marrow biopsy, right posterior iliac crest B: Bone Marrow Clot - BJ C: Bone marrow, right aspirate for flow cytometry Gross Description: Received in two formalin jars labeled with the patient's identifiers. A. Received in formalin, labeled RPIC core and consists of a single red and graahm cores of bone with attached hemorrhagic material measuring 2.0 cm in length by 0.2 cm in diameter. Labeled A1. EDTA decalcification.. Jar 0. B. Received in formalin, labeled RPIC clot and consists of a 2.1 x 2.1 x 1.5 cm fragment of hemorrhagic material. Labeled B1. Jar 1. sxst/01/12/2025 16:50 PA(s): Maru Pozo Specimen labeled: [id number] CBC: Date: 01/12/25 WBCs: 2.51x10^3/mcl Hemoglobin: 8.3g/dl Hematocrit: 24.1% Platelets: 132x10^3/mcl Mean corpuscular volume (MCV): 90.3fl Red cell distribution width (RDW-CV): 25.5% Neutrophils, absolute: 1.81 K/cumm Lymphocytes, absolute: 0.30 K/cumm Monocytes, absolute: 0.25 K/cumm Eosinophils, absolute: 0.08 K/cumm Basophils, absolute: 0.05 K/cumm metamyelocyte pct 2.0 Neutrophils: 72.0% Lymphocytes: 12.0% Monocytes: 10.0% Eosinophils: 3.0% Basophils: 2.0% Peripheral blood smear (Greenwood-Giemsa): Red Blood Cells: Normocytic normochromic anemia White Blood Cells: Leukopenia Platelets: Mild thrombocytopenia The peripheral blood morphology reflects the CBC values. Bone marrow aspirate smear (Greenwood-Giemsa stain): Quality: Dilute Spicules: None Marrow cellularity: Not evaluable Aspicular hemodilute aspirate Myeloid maturation: Normal Erythroid maturation: Normal Myeloid/Erythroid Ratio: Within normal limits Megakaryocyte number: essentially absent Lymphocytes: Normal Plasma cells: Normal Iron: Aspicular aspirate insufficient for interpretation/non-contributory Differential count: Total # of Cells Counted:100 Blasts: 0 Promyelocytes: 0 Myelocytes+Metamyelocytes:17 Bands+Neutrophils:39 Eosinophils: 2 Basophils: 0 Plasma cells: 0 Lymphocytes: 21 Monocytes: 1 Erythroids: 20 Differential count performed on aspicular hemodilute aspirate Bone marrow core biopsy (decalcified, H&E and Leder stains): Right, iliac crest Quality: Adequate Length of evaluable marrow (millimeters): 19 mm Cellularity: 30% Myeloid maturation: decreased Erythroid maturation: decreased The Leder stain shows that the Myeloid/Erythroid Ratio is: Within normal limits Megakaryocyte number: Decreased Megakaryocytic maturation: Normal The Leder stain is used to assess for lymphoid aggregates: None Plasma cells: Normal Reticulin and Trichrome stains show: No significant fibrosis (MF-0) TP53 IHC: Not performed, CLOT SECTION: The bone marrow clot section including Leder and H&E stains are: Consist of clotted blood with minimal evaluable marrow By this signature, I attest that the above diagnosis is based upon my personal examination of the slides(and/or other material). Addenda/Procedures Flow Cytometry Ordered:01/12/2025Status:Signed OutFlow Cytometry Complete:01/13/2025y:Tho Villafuerte M.D.Flow Cytometry Signed Out: 01/13/2025 Diagnosis Bone marrow, right aspirate for flow cytometry: - No increase in blasts or aberrant T-cell populations detected by flow cytometry - See comment Comment Specimen quality: Adequate Flow cytometry identifies no increase in myeloid blasts. Lymphocyte-gated events account for 11% of the overall cellularity. The CD3+ T-cells (comprising 33% of lymphocytes) show no significant loss of benito T-cell antigens and have a CD4 to CD8 ratio within normal limits. There is a small population of CD56+ events consistent with natural killer cells. There is no overt increase in CD38+ plasma cells. Correlation with morphology (if submitted), clinical, laboratory, and genetic findings is required for definitive diagnosis. A malignant process cannot be excluded solely on the basis of this assay. A Greenwood-Giemsa stained cytospin from the flow cytometry specimen was examined for internal quality assurance intern purposes. Flow cytometry was performed using antibodies to the following cellular antigens: CD45, CD34, CD2, CD3, CD4, CD5, CD7, CD8, CD56, TCR-GD, CD16, CD10 , CD13, CD14, CD64, HLA-DR, CD11b, CD15, CD123, CD117, CD33, CD38, CD19. Total antigens analyzed: 23 jlf By this signature, I attest that the above diagnosis is based upon my personal examination of the slides(and/or other material indicated in the diagnosis). Tho Villafuerte M.D.Report Electronically Reviewed and Signed Out By Tho Villafuerte M.D. 01/13/2025 15:37:27Mala Cisneros M.D. The performance characteristics of some immunohistochemical stains, fluorescence in-situ hybridization tests and immunophenotyping by flow cytometry cited in this report (if any) were determined by the Surgical Pathology and Flow Cytometry Departments at [facility] as part of an ongoing quality control associate program and in compliance with federally mandated regulations drawn from the Clinical Laboratory Improvement Act of 1988 (CLIA '88). Some of these tests rely on the use of analyte specific reagents and are subject to specific labeling requirements by the US Food and Drug Administration. Such diagnostic tests may only be performed in a facility that is certified by the Department of Health and Human Services as a high complexity laboratory under CLIA '88. The FDA has determined that such clearance or approval is not necessary. This test is used for clinical purposes. It should not be regarded as investigational or for research. Nevertheless, federal rules concerning the medical use of analyte specific reagents require that the following disclaimer be attached to the report: This test was developed and its performance characteristics determined by the Surgical Pathology and Flow Cytometry Departments of [facility]. It has not been cleared or approved by the U. S. Food and Drug Administration. IMAGES AND SCANNED DOCUMENTS, IF INCLUDED, ONLY VIEWABLE IN PDF VERSION OF REPORT us Vu Cruz MD LAB PATHOLOGY ORDERABLES Lilian joey Result PATHOLOGY [facility] IO 3rd Floor [place], [place] [phone] * Measurable Residual Disease (MRD) MyeloSeq Heme NGS Panel with Interpretation Bone marrow (01/12/2025 12:52 PM CDT) Bone marrow (Bone Marrow Biopsy) 01/12/2025 12:52 PM CDT 01/13/2025 8:25 AM CDT Narrative [facility] DIAGNOSTIC LAB - CYTOGENETICS - 01/22/2025 11:32 PM CDT [facility] [address] [place], [place] [id number] Final Report Patient Name: JUNIE SLADE Address: [address] [place] [id number] Gender: F : 1970 (Age: 54) Accessioned: 01/13/2025 Taken: 01/12/2025 Received: 01/13/2025 Physician(s): Vu Cruz M.D. Service: [facility] Location: Hospital #: [id number] Patient Type: [facility] MyeloSeq-MRD Molecular DiagnosticsReported:01/22/2025 Varients Detected: GENE EXON VARIANT PROTEIN CHANGE VAF CLINICAL SIGNIFICANCE* PREVIOUSLY DETECTED No mutations detected Please see below for variant classification category details The following prior mutations were not detected: None No mutations were detected in the following sequenced genes and hotspots: ASXL1, BCOR, BCORL1, BRAF, CALR, CBL, CEBPA, CHEK2, CSF3R, CUX1, DDX41, DNMT3A, ETNK1, ETV6, EZH2, FLT3, GATA1, GATA2, GNB1, IDH1, IDH2, JAK2, KIT, KMT2A, KRAS, MPL, MYC, NF1, NOTCH1, NPM1, NRAS, PHF6, PIGA, PPM1D, PRPF8, PTPN11, RAD21, RUNX1, SETBP1, SF3B1, SMC1A, SMC3, SRSF2, STAG2, STAT3, STAT5B, SUZ12, TET2, TP53, U2AF1, UBA1, UBTF, WT1, ZRSR2 Variant Interpretation: Previously identified variants in NPM1, FLT3 and GATA2 at another laboratory are not seen, consistent with mutation clearance and measurable residual disease (MRD) negative status at a sensitivity of at least 0.1% VAF. Overall quality assurance intern metrics are within normal limits. 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 Corresponding bone marrow biopsy ([id number]) shows hypercellular bone marrow with panhypoplasia, no morphologic evidence of acute leukemia. Corresponding cytogenetics studies ([id number]) show no evidence of clonal aberrations by fluorescence in situ hybridization (FISH). Specimen site: Bone marrow Variant Detail: Gene Location (GRCh38) Reference allele Variant allele Transcript:Coding change Population Frequency* No mutations detected The population allele frequency represents the maximum observed allele frequency in a diverse set of worldwide populations. QC Data: The following hotspots passed sequencing QC metrics: BRAF (codon 600), CALR (codon 9), CEBPA (codon domain), DNMT3A (codon 882), FLT3 (codons 835,569-613), IDH1 (codon 132), IDH2 (codons 140,172), JAK2 (codon 617), KIT (codon 816), KRAS (codons 61,12-13), MPL (codon 515), NPM1 (codons 287-288), NRAS (codons 61,12-13), SF3B1 (codons 700,662-666,622-626), SRSF2 (codons 95,103), TP53 (codons 238,248,273,275), U2AF1 (codons 34,157), UBA1 (codon 41) The following target genes failed minimum sequencing QC metrics (>=95% of positions >=250x): no genes failed QC Myeloseq Assay Version 3.0 This laboratory developed test (LDT) was developed and its performance characteristics determined by the CLIA Licensed Environment laboratory at the [facility] ([facility], CLIA #[id number], CAP #[id number]), Dr. Calin Jimenez MD, PhD, FCAP, Continuity Coordinator. [address] [place] [address], [address] [address] . The [facility] laboratory is regulated under CLIA as certified to perform high-complexity testing. Interpretation of sequencing results and case sign out is performed by Pathology and Immunology faculty in the Division of Genomic and Molecular Pathology (-[facility]omics [facility], CLIA #[id number], CAP #[id number]) Dr. Montse Solis Ph.D., Continuity Coordinator. [facility], [facility], [facility] [address], [place] [address] [phone] . The [facility] is regulated under CLIA as certified to perform high-complexity testing. This test has not been cleared or approved by the FDA. This test uses hybridization capture-based enrichment that incorporates unique molecular identifiers (ELOISE) coupled with Illumina-based next generation sequencing. A total of 54 genes and hotspots (partial genes) are targeted by the assay using approximately 30GBases of sequencing data generated on an [employer] X Plus. This test has been validated according to CAP guidelines for the detection of single nucleotide variants (SNVs) and indels (max validated size 117bp). This assay has two limits of detection: for new variants (not previously reported by MyeloSeq) sensitivity is limited to 2% VAF; for previously reported variants the sensitivity is >95% for variants with VAFs >0.1%. The actual limit of detection (LOD) for known variants is limited by coverage at the sequenced position. This test does not use paired normal (germline) DNA to determine the somatic status of detected variants; somatic status for detected variants is inferred if the maximum observed allele frequency in a diverse set of worldwide populations is <0.1%. Common population polymorphisms (SNPs) are not reported by this assay and this assay does not distinguish rare inherited (constitutional variants) from somatic variants; should there be sufficient clinical concern for a constitutional cancer-associated mutation, please contact the laboratory for additional testing information. All variants are reported using HGVS nomenclature based on GRCh38 genomic coordinates. Transcripts are reported using the most canonical reference. Variants detected by this assay are classified into one of the following five categories: 1. Potentially therapeutic: target or biomarker for FDA-approved therapies. 2. Pathogenic: recurrent finding in high-quality peer-reviewed studies or meets the criteria for disease-related somatic mutation by NCCN guidelines. 3. Possibly germline: possibly germline variant based on VAF and population frequency; this assay is not designed to detect germline variants; confirmatory germline testing is required to determine the origin of any reported variant. Note: in the post-transplant setting, possibly germline variants are subclassified as possibly germline, recipient-derived or possibly germline, donor-derived based on comparison to historical results, if available. 4. Possibly donor-derived: detected after stem cell transplant in an engrafted patient but not present in pre-transplant studies, most consistent with donor- derived clonal hematopoiesis. 5. Uncertain significance: does not meet any of the above criteria and is therefore of uncertain clinical significance. Molecular testing using these methods is expected to be accurate. However, the chance of a false positive or false negative result due to laboratory errors incurred during any phase of testing cannot be completely excluded. [facility] does not have control over the quantity, quality or provenance of specimens originating from outside institutions. Accordingly, [facility] disclaims any and all responsibility and liability arising from a false positive or false negative result that may arise from an insufficient quantity of specimen, poor specimen quality, or contamination of specimen. This Report was generated using the materials and methods described above, which required the use of various reagents, protocols, instruments, software, databases, and other items, some of which were provided or made accessible by third parties. A defect or malfunction in any such reagents, protocols, instruments, software, databases, and/or other items may compromise the quality or accuracy of the Report. The Report has been created based on, or incorporates references to, various scientific manuscripts, references, and other sources of information, including without limitation manuscripts, references, and other sources of information that were prepared by third parties that describe correlations between certain genetic mutations and particular diseases (and/or certain therapeutics that may be useful in ameliorating the effects of such diseases). Such information and correlations are subject to global climate change analyst time in response to future scientific and medical findings. [employer] makes no representation or warranty of any kind, expressed or implied, regarding the accuracy of the information provided by or contained in such manuscripts, references, and other sources of information. If any of the information provided by or contained in such manuscripts, references, and other sources is later determined to be inaccurate, the accuracy and quality of the Report may be adversely impacted. is not obligated to notify you of any impact that future scientific or medical research findings may have on the Report. The Report must always be interpreted and considered within the clinical context, and a physician should always consider the Report along with all other pertinent information and data that a physician would prudently consider prior to providing a diagnosis to a patient or developing and implementing a plan of care for a patient. The Report should never be considered or relied upon alone in making any diagnosis or prognosis. The manifestation of many diseases are caused by more than one gene variant, a single gene variant may be relevant to more than one disease, and certain relevant gene variants may not have been considered in the Report. In addition, many diseases are caused or influenced by modifier genes, epigenetic factors, environmental factors, and other variables that are not addressed by the Report (or that are otherwise unknown). As such, the relevance of the Report should be interpreted in the context of a patient's clinical manifestations. The Report provided by [employer] is provided on an IS basis. [employer] makes no representation or warranty of any kind, expressed or implied, regarding the Report. In no event shall [employer] be liable for any actual damages, indirect damages, and/or special or consequential damages arising out of or in any way connected with the Report, your use of the Report, your reliance on the Report, or any defect or inaccurate information included within the Report. Michael Holbrook M.D., Ph.D.Report Electronically Reviewed and Signed Out By Michael Holbrook M.D., Ph.D. 01/22/2025 23:29:05 us Vu Cruz MD LAB PATHOLOGY ORDERABLES Lilian joey Result [facility] DIAGNOSTIC LAB - CYTOGENETICS [address] [place] [address] * Cytogenetics Bone marrow (01/12/2025 12:52 PM CDT) Bone marrow (Bone Marrow Biopsy) 01/12/2025 12:52 PM CDT 01/12/2025 12:52 PM CDT Narrative [facility] DIAGNOSTIC LAB - CYTOGENETICS - 01/20/2025 9:47 PM CDT [facility] results best viewed via link to PDF [facility] Department of Pathol [address] [place] [id number] Patient Information Name: JUNIE SLADE Gender: F : 1970 (Age: 54) Tissue: Bone Marrow w/ FISH Visit Information Hospital #: [id number] Facility: [facility] Service: [facility] Location: UNKNOWN Patient Type: [facility] Specimen Information: Culture #: [id number] Date Collected: 01/12/2025 Date Accessioned: 01/13/2025 Date Ordered: 01/12/2025 Physician(s): Vu Cruz M.D. Processin hours unstimulated Indication: Acute myeloid leukemia not having achieved remission Specimen Quality: Low cell count Adequate: FISH Adequate: Chromosome analysis CLINICAL REPORT CHROMOSOME ANALYSIS Metaphases Counted: 20Banding Technique: GTWColonies Counted: Metaphases Analyzed: 20Additional Method: FISHNumber of Cultures: 1Metaphases Karyotyped: 3Banding Resolution: 400Subculture: Karyotype: 46,XX[20]. nuc hoa (MECOM)x2[200],(EGR1)x2[200],(B9T773)x2[200],(XPEH8M2,RUNX1)x2[200],(ASS1,ABL1,B CR)x2 [200], (KMT2A)x2[200],(PML,KHUSHI)x2[200],(CBFB)x2[200] Diagnosis: CHROMOSOME ANALYSIS: NO EVIDENCE OF CLONAL ABERRATIONS FISH FINDINGS: NO EVIDENCE OF DELETION/MONOSOMY OF EGR1 (5q), X6X037 (7q) NO EVIDENCE OF MECOM (EVI1), HIOI2O4::RUNX1, BCR::ABL1, KMT2A, PML::KHUSHI OR CBFB REARRANGEMENT INTERPRETATION: No clonal cytogenetic aberrations were identified in metaphase cells analyzed from unstimulated cultures. This normal result does not exclude a neoplastic proliferation. Small chromosome anomalies may not be detectable using the standard methods employed. Chromosome analysis was performed at a level of 400 bands or greater. The chromosome findings must be interpreted within the context of the pathologic and clinical findings. Follow-up evaluation is recommended. Chromosome analysis and Fluorescence In Situ Hybridization (FISH) analysis are performed using the [employer] Imaging System. Report Electronically Reviewed and Signed Out By Staci Mcconnell MD, [facility], FAAPDate Reported: 01/20/2025Professor, Division of Genomic & Molecular Pathology FLUORESCENCE IN-SITU HYBRIDIZATION [FISH] Karyotype: nuc hoa (MECOM)x2[200],(EGR1)x2[200],(A9B702)x2[200],(GYJJ9B4,RUNX1)x2[200],(ASS1,ABL1,B CR)x2 [200], (KMT2A)x2[200],(PML,KHUSHI)x2[200],(CBFB)x2[200] Diagnosis: FISH FINDINGS: NO EVIDENCE OF DELETION/MONOSOMY OF EGR1 (5q), L8X078 (7q) NO EVIDENCE OF MECOM (EVI1), ATGO4D3::RUNX1, BCR::ABL1, KMT2A, PML::KHUSHI OR CBFB REARRANGEMENT INTERPRETATION: FISH analysis was performed with a panel of [employer] and [employer] probes for AML and is interpreted as NORMAL. 1)FISH evaluation for an EVI1(MECOM) rearrangement was performed on nuclei with the EDMUND Dual Color, Break Apart Rearrangement Probe ([employer] at 3q26 and is interpreted as NORMAL. No rearrangement was observed in 197/200 nuclei, which is within the normal range established for this probe in the Clinical Genomics Laboratory at [facility]. Up to 2% of cells in normal samples can show an apparent MECOM rearrangement using this probe. A normal MECOM FISH finding can result from the absence of a MECOM rearrangement, from a variant MECOM rearrangement or from an insufficient number of neoplastic cells in the specimen. 2) FISH evaluation for a 5q deletion was performed on nuclei with the EGR1, Y6Q879/U1S6124 Dual Color Probe ([employer] for EGR1 at 5q31.1 and the control A5H252/J9K9696 at 5p15.31 and is interpreted as NORMAL. Two EGR1 hybridization signals and two T6J543/[id number] control hybridization signals were observed in 199/200 nuclei, which is within the normal range established for this probe in the Clinical Genomics Laboratory at [facility]. Up to 3.1% of cells in normal samples can show an apparent 5q deletion using this probe. A normal EGR1 FISH finding can result from the absence of a 5q deletion, from a 5q deletion that does not involve the region to which this probe hybridizes or from an insufficient number of neoplastic cells in the specimen. 3) FISH evaluation for a 7q deletion was performed on nuclei with the LSI O1T544/D7Z1 Dual Color Probe ([employer] for W1R486 at 7q31 and the control D7Z1 at 7p11.1-q11.1 and is interpreted as NORMAL. Two L9O145 hybridization signals and two D7Z1 control hybridization signals were observed in 199/200 nuclei, which is within the normal range established for this probe in the Clinical Genomics Laboratory at [facility]. Up to 1% of cells in normal samples can show an apparent 7q deletion using this probe. A normal E0F826 FISH finding can result from the absence of a 7q deletion, from a 7q deletion that does not involve the region to which this probe hybridizes or from an insufficient number of neoplastic cells in the specimen. 4) FISH evaluation for a MYEL1V3::RUNX1 rearrangement was performed on nuclei with the LSI RRQP8L3/RUNX1 Dual Color, Dual Fusion Translocation Probe ([employer] for CDYS9L9 (ETO) at 8q22 and RUNX1 (AML1) at 21q22 and is interpreted as NORMAL. No rearrangement was observed in 197/200 nuclei, which is within the normal range established for this probe in the Clinical Genomics Laboratory at [facility]. Variant signal pattern was observed in 3/200 nuclei. Up to 5% of cells in normal samples can show random overlap of SPGT4C0::RUNX1 probes and additional nuclei may show extra or missing signals. A normal AALA5A2::RUNX1 FISH finding can result from the absence of a IYWE9T9::RUNX1 rearrangement, from a variant XUNI2Z7::RUNX1 rearrangement or from an insufficient number of neoplastic cells in the specimen. 5) FISH evaluation for a BCR::ABL1 rearrangement was performed on nuclei with the LSI BCR/ABL1 Tricolor, Dual Fusion Translocation Probe ([employer] for ASS1/ABL1 at 9q34 and BCR at 22q11.2 and is interpreted as NORMAL. No rearrangement was observed in 192/200 nuclei, which is within the normal range established for this probe in the Clinical Genomics Laboratory at [facility]. Variant signal pattern was observed in 8/200 nuclei. Up to 8.5% of cells in normal samples can show random overlap of BCR::ABL1 probes and additional nuclei may show extra or missing signals. A normal BCR::ABL1 FISH finding can result from the absence of a BCR::ABL1 rearrangement, from a variant BCR::ABL1 rearrangement or from an insufficient number of neoplastic cells in the specimen. 6) FISH evaluation for a KMT2A (MLL) rearrangement was performed on nuclei with the LSI KMT2A (MLL) Dual Color, Break Apart Rearrangement Probe ([employer] at 11q23 and is interpreted as NORMAL. No rearrangement was observed in 199/200 nuclei, which is within the normal range established for this probe in the Clinical [facility]omics Laboratory at [facility]. Up to 1% of cells in normal samples can show an apparent KMT2A (MLL) rearrangement using this probe. A normal KMT2A (MLL) FISH finding can result from the absence of a KMT2A (MLL) rearrangement, from a variant KMT2A (MLL) rearrangement or from an insufficient number of neoplastic cells in the specimen. 7) FISH evaluation for a PML::KHUSHI rearrangement was performed on nuclei with the LSI PML/KHUSHI Dual Color, Dual Fusion Translocation Probe ([employer] for PML at 15q24 and KHUSHI at 17q21 and is interpreted as NORMAL. No rearrangement was observed in 195/200 nuclei, which is within the normal range established for this probe in the Clinical [facility]omics Laboratory at [facility]. Variant signal pattern was observed in 5/200 nuclei. Up to 13% of cells in normal samples can show random overlap of PML::KHUSHI probes and additional nuclei may show extra or missing signals. A normal PML::KHUSHI FISH finding can result from the absence of a PML::KHUSHI rearrangement, from a variant PML::KHUSHI rearrangement or from an insufficient number of neoplastic cells in the specimen. 8) FISH evaluation for a CBFB rearrangement was performed on nuclei with the LSI CBFB Dual Color, Break Apart Rearrangement Probe ([employer] at 16q22 and is interpreted as NORMAL. No rearrangement was observed in 197/200 nuclei, which is within the normal range established for this probe in the Clinical [facility]omics Laboratory at [facility]. Up to 2% of cells in normal samples can show an apparent CBFB rearrangement using this probe. A normal CBFB FISH finding can result from the absence of a CBFB rearrangement, from a variant CBFB rearrangement or from an insufficient number of neoplastic cells in the specimen. The FISH findings must be interpreted within the context of the pathologic and clinical findings. Follow-up evaluation is recommended. Chromosome analysis is pending and will be reported separately. This test was developed and its performance characteristics determined by [facility]. It has not been cleared or approved by the FDA. The laboratory is regulated under CLIA as qualified to perform high-complexity testing. This test is used for clinical purposes. It should not be regarded as investigational or for research. Chromosome analysis and Fluorescence In Situ Hybridization (FISH) analysis are performed using the [employer] Cytovision Imaging System. Report Electronically Reviewed and Signed Out By Montse Solis, PhD, FACMGDate Reported: 01/15/2025ssociate Professor, Division of Genomic & Molecular Pathology us Vu Cruz MD LAB GENETIC TESTING Final Res ult [facility] DIAGNOSTIC LAB - CYTOGENETICS [address] [place] [address] * Collection task for HLA Typing, Buccal (01/12/2025 12:13 PM CDT) HLA typing, buccal collection Received Buccal swab 01/12/2025 12:1 3 PM CDT 01/12/2025 3:10 PM CDT Vu Cruz MD LAB BODY FLUIDS AND STOOLS OR DERABLES Final Result BOO [facility] Department [place] [address] * HLA Confirmatory Typing (01/12/2025 12:11 PM CDT) r-SSO HISTOTRAC A First Allele A*23 HISTOTRAC A Second Allele A*24 HISTOTRAC A First Serological Equivalent A23 HISTOTRAC A Second Serological Equivalent A24 HISTOTRAC B First Allele B*07 HISTOTRAC B Second Allele B*49 HISTOTRAC B First Serological Equivalent B7 HISTOTRAC B Second Serological Equivalent B49 HISTOTRAC Confirmatory Interpretation Matches initial typing. [facility]OT[facility] See Collection Task 01/12/2025 12:11 PM CDT 01/19/2025 10:11 AM CDT Narrative [facility] - 01/19/2025 10:11 AM CDT DNA was extracted from whole blood or buccal cell specimens, and relevant genomic regions were amplified by polymerase chain reactions (PCR). HLA typing was performed on PCR amplicons using reverse sequence-specific oligonucleotide (r-SSO) and/or sequence-specific primers (SSP) based techniques. r-SSO and SSP are FDA approved as IVD tests and validated by the [facility] HLA Laboratory. Testing performed at the [facility] HLA Laboratory, [address] [place] [address], 5th floor, [place], [address]. CLIA # [id number]. Prabha Ghosh, Ph.D., Records Officer, HLA Laboratory Joe Lorenz M.D., Ph.D., Continuity Coordinator, HLA Laboratory Adalgisa Jordan, Ph.D., CLIA Continuity Coordinator, [facility] Clinical Laboratories Current methodology comment last revised on 02/20/17. Vu Cruz MD LAB BLOOD ORDERABLES Final Re sult H[facility] * HR HLA Typing (Class I and Class II) (01/12/2025 8:50 AM CDT) NGS HISTOTRAC A First Allele A*23:CJT HISTOTRAC A Second Allele A*24:CBZFC HISTOTRAC A First Serological Equivalent A23 HISTOTRAC A Second Serological Equivalent A24 HISTOTRAC B First Allele B*07:02 HISTOTRAC B Second Allele B*49:01 HISTOTRAC B First Serological Equivalent B7 HISTOTRAC B Second Serological Equivalent B49 HISTOTRAC Bw First Serological Equivalent Bw6 HISTOTRAC Bw Second Serological Equivalent Bw4 HISTOTRAC C First Allele C*07:01 HISTOTRAC C Second Allele C*07:02 HISTOTRAC C First Serological Equivalent Cw7 HISTOTRAC C Second Serological Equivalent Cw7 HISTOTRAC DRB1 First Allele DRB1*04:AG GNF HISTOTRAC DRB1 Second Allele DRB1*11:[address] HISTOTRAC [address]B1 First Serological Equivalent DR4 HISTOTRAC DRB1 Second Serological Equivalent DR11 HISTOTRAC DRB3 First Allele DRB3*02:FD GBW HISTOTRAC DRB3 First Serological Equivalent DR52 HISTOTRAC DRB4 Second Allele DRB4*01:EU HVF HISTOTRAC DRB4 Second Serological Equivalent DR53 HISTOTRAC DQA1 First Allele DQA1*03:01 HISTOTRAC DQA1 Second Allele DQA1*05:05 HISTOTRAC DQB1 First Allele DQB1*03:02 HISTOTRAC DQB1 Second Allele DQB1*03:19 HISTOTRAC DQB1 First Serological Equivalent DQ8 HISTOTRAC DQB1 Second Serological Equivalent DQ7 HISTOTRAC DPB1 First Allele DPB1*04:01 :01G HISTOTRAC DPB1 Second Allele DBP1*04:01 :01G HISTOTRAC DPA1 First Allele DPA1*01:03 HISTOTRAC DPA1 Second Allele DPA1*01:03 HISTOTRAC Blood 01/12/2025 8:50 AM CDT 01/19/2025 10:10 AM CDT Narrative HISTOTRAC - 01/19/2025 10:10 AM CDT DNA was extracted from whole blood or buccal cell specimens, and relevant genomic regions were amplified by polymerase chain reaction (PCR). HLA typing was performed on PCR amplicons by next-generation sequencing (NGS) using the AllType NGS assay ([employer]) on the [employer] platform, which outperforms the [place] Sequence-based typing (SBT) but is not FDA approved for HLA typing. The sequence-specific primers (SSP) method may be employed to resolve ambiguity using FDA approved IVD products ([place] SSP) as indicated. The performance of the above methods are validated by the [facility] HLA Laboratory. For typing results reported using NMDP codes, all unresolved alleles represented by the code are listed under the NMDP Code Translations section. DPB1 typing may be resulted using G group codes when applicable (e.g. DPB1*01:01:01G); all alleles within a G group share the same DNA sequence for the exon 2 of DPB1, and the list of unresolved alleles within a G group can be viewed at http://hla.alleles.org/alleles/g_groups.html. Testing performed at the [facility] HLA Laboratory, [address] [place] [address], 5th floor, [place], [address]. [facility] # [id number]. Prabha Ghosh, Ph.D., Records Officer, HLA Laboratory Joe Lorenz M.D., Ph.D., Continuity Coordinator, HLA Laboratory Adalgisa Jordan, Ph.D., CLIA Continuity Coordinator, [facility] Clinical Laboratories Current methodology comment last revised on 03/16/2020. Emilia Johnston NP LAB BLOOD ORDERABLES Final Result H[facility] * Collection Task for HLA Typing 1 (01/12/2025 8:50 AM CDT) HLA Class I DNA (ABC) Recipient Received Blood 01/12/2025 8:50 AM CDT 01/12/2025 3:10 PM CDT Emilia Johnston NP LAB BLOOD ORDERABLES Final Result Performing Organization Address City/[facility]/ZIP Co de Phone Number BOO DYER [facility] [place] [address] * Collection Task for HLA Antibody Screen (01/12/2025 8:50 AM CDT) HLA Antibody Screen By Single Antigen Received Blood 01/12/2025 8:50 AM CDT 01/12/2025 3:10 PM CDT us Emilia Johnston NP LAB BLOOD ORDERABLES Final Result Performing Organization Address [facility] Co de Phone Number BOO DYER [facility] [place] [address] * eGFR (01/12/2025 8:50 AM CDT) eGFR 73 >=60 mL/min/1. 73 m2 Comment: Interpretive Data Reference Interval Normal >/= 90 mL/min/1.73m2 Mildly decreased* 60 - 89 mL/min/1.73m2 Mildly to moderately decreased 45 - 59 mL/min/1.73m2 Moderately to severely decreased 30 - 44 mL/min/1.73m2 Severely decreased 15 - 29 mL/min/1.73m2 Kidney Failure < 15 mL/min/1.73m2 *Relative to young adult level Estimated glomerular filtration rate is determined by the 2020 CKD-EPI equation recommended by the National Kidney Foundation (A Unifying Approach to GFR Estimation: Recommendations of the NKF-ASK Task Force on Reassessing the Inclusion of Race in Diagnosing Kidney Disease, JASN 2020). The CKD-EPI equation should not be used for patients with unstable renal function and has not been validated in children and those over 70. Current interpretive data was last reviewed 2021. Blood 01/12/2025 8:50 AM CDT 01/12/2025 8:57 AM CDT us Vu Cruz MD LAB BLOOD ORDERABLES Final Re sult Performing Organization Address City/[facility]/ZIP Co de Phone Number [facility] [place] [address] * CMV, IgG Blood (01/12/2025 8:50 AM CDT) Pathologist [facility] CMV IgG Negative Negative Comment: Interpretive Data Negative - Individuals with negative CMV IgG results are presumed to not have had prior exposure or infection with CMV and are, therefore, considered susceptible to primary infection. Equivocal - Equivocal results may occur during acute infection or may be due to nonspecific binding reactions. Submit an additional sample for testing if clinically indicated. Positive - Indicates presence of detectable CMV IgG antibody. Results indicate past or recent CMV infection. Blood 01/12/2025 8:50 AM CDT 01/12/2025 9:48 AM CDT Vu Cruz MD LAB MICROBIOLOGY - GENERAL OR DERABLES Final Result Performing Organization Address City/State/[facility] Co de Phone Number [facility] [place] [address] * HLA Antibody Screen - SAB (Class I and Class II) (01/12/2025 8:50 AM CDT) Pathologist [facility] Class I Treatment EDTA HISTOTRAC Class I Dilution 1:1 [facility] Class I Tested Date 01/12/2025 [facility] Class I Result Positive [facility] Class I CPRA 97 [facility] Class I Increased Risk A1, A2, A3, A11, A29, A30, A31, A33, A34, A66, A68, A69, A74 [facility] Class I Moderate Risk A26, A36, A43, A80 [facility] Class I Low Risk A32; B37 [facility] Class II Treatment EDTA [facility] Class II Dilution 1:1 [facility]AC Class II Tested Date 01/12/2025 HISTOT[facility]AC Class II Result Positive [facility] Class II CPRA 70 [facility] Class II Increased Risk DR15, DR16; DQ4, DQ5, DQ6 [facility] Class II Moderate Risk DR51 [facility] Class II Low Risk DR1, DR103, DR9, DR51 [facility] Blood 01/12/2025 8:50 AM CDT 01/14/2025 1:41 PM CDT Narrative HISTOTRAC - 01/14/2025 1:41 PM CDT Single-antigen HLA antibody screen is performed on serum samples using a method developed and validated by the [facility] HLA laboratory based on an FDA-approved IVD kit (Seedcampcreen Single-Antigen, [employer], [place], [place]). All patient serum samples are pretreated with EDTA before the screen to prevent complement interference. Additional serum treatments, such as adsorption and DTT treatment, may be performed as indicated. Interpretive comments: Low risk: MFI 6511-7465. Moderate risk: MFI 4636-8194. Increased risk: MFI >/= 5000. The presence of an antigen in two or more risk categories may indicate a mixed reactivity pattern among beads of multiple subtypes. Preformed donor-specific antibodies (DSA) with MFI above 2000 are predictive of positive cytotoxicity crossmatch (Hum Immunol 2010;71:268-73. Hum Immunol 2012;73:497- 604) and carry a higher risk of humoral rejection. For our solid-organ transplant programs, unacceptable antigens (UA) for transplant candidates are defined by MFI >/= 2000 with some exceptions. UA are listed at UNOS and used to generate calculated PRA (cPRA) rounded to the nearest integer. In the post-transplant setting, MFI values from donor-specific beads are listed in the DSA report to provide additional information. It is important to note that this test is approved as a qualitative test and the MFI values are not strictly linear. For platelet refractoriness: An empirical cutoff value of MFI >/= 2000 has been used in our center; a higher cutoff value such as 5000 may also be suitable for highly sensitized patients to prioritize the antigens to avoid. Testing performed at the [facility] Laboratory, [address] [place] [address], 5th floor, [place], [address]. [facility] # [id number]. Prabha Ghosh, Ph.D., Records Officer, HLA Laboratory Joe Lorenz M.D., Ph.D., Continuity Coordinator, HLA Laboratory Adalgisa Jordan, Ph.D., CLIA Continuity Coordinator, [facility] Clinical Laboratories Current methodology and interpretive comments last revised on 07/13/2022. Emilia Johnston [employer] LAB BLOOD ORDERABLES Final Result [facility] * (ABNORMAL) CBC with auto differential (01/12/2025 8:50 AM CDT) WBC 2.51(L) 3.80 - 9.90 K/cumm Comment:Testing performed by : [facility], [address] [place] [address] Hgb 8.3(L) 11.9 - 15.5 g/dL CERNER BJ Comment:Testing performed by : [facility], [address] [place] [address] Hct 24.1(L) 35.6 - 45.5 % CERNER [facility] Comment:Testing performed by : [facility], [address] [place] [address] Plt 132(L) 150 - 400 K/cumm CERNER [facility] Comment:Testing performed by : [facility], [address] [place] [address] MPV 7.9 6.8 - 10.4 fL CERNER [facility] Comment:Testing performed by : [facility], [address] [place] [address] RBC 2.67(L) 3.90 - 5.20 M/cumm CERNER [facility] Comment:Testing performed by : [facility], [address] [place] [address] MCV 90.3 81.3 - 96.4 fL CERNER [facility] Comment:Testing performed by : [facility], [address] [place] [address] MCH 31.3 27.1 - 33.3 pg CERNER [facility] Comment:Testing performed by : [facility], [address] [place] [address] MCHC 34.6 32.3 - 35.7 g/dL CERNER [facility] Comment:Testing performed by : [facility], [address] [place] [address] RDW CV 25.5(H) 11.1 - 14.9 % BOO DYER Comment:Testing performed by : [facility], [address] [place] [address] NRBC abs 0.00 0.00 - 0.01 K/cumm BOO DYRE Comment:Testing performed by : [facility], [address] [place] [address] Blood 01/12/2025 8:50 AM CDT 01/12/2025 8:54 AM CDT Vu Cruz MD LAB BLOOD ORDERABLES Edited R esult - Final BOO DYER [facility] Department of Laboratories [place] [id number] * (ABNORMAL) Manual Differential (01/12/2025 8:50 AM CDT) Cells Counted 200 Comment:Testing performed by : [facility], [address] [place] [address] Neutrophil abs 1.81 1.50 - 6.50 K/cumm BOO DYER Comment:Testing performed by : [facility], [address] [place] [address] Lymphocyte abs 0.30(L) 0.80 - 3.30 K/cumm BOO DYER Comment:Testing performed by : [facility], [address] [place] [address] Monocyte abs 0.25 0.20 - 0.80 K/cumm BOO DYER Comment:Testing performed by : [facility], [address] [place] [address] Eosinophil abs 0.08 0.00 - 0.50 K/cumm BOO DYER Comment:Testing performed by : [facility], [address] [place] [phone] Basophil abs 0.05 0.00 - 0.10 K/cumm CERNER [facility] Comment:Testing performed by : [facility], [address] [place] [phone] Neutrophil pct 72.0 % CERNER [facility] Comment: Interpretive Data Percent cell count reference ranges are not reported, since discordance with absolute values may lead to misinterpretation of CBC data. Current Interpretive Data was last revised on 2017. Testing performed by: [facility], [address] [place] [phone] Lymphocyte pct 12.0 % CERNER [facility] Comment: Interpretive Data Percent cell count reference ranges are not reported, since discordance with absolute values may lead to misinterpretation of CBC data. Current Interpretive Data was last revised on 2017. Testing performed by: [facility], [address] [place] [phone] Monocyte pct 10.0 % CERNER [facility] Comment: Interpretive Data Percent cell count reference ranges are not reported, since discordance with absolute values may lead to misinterpretation of CBC data. Current Interpretive Data was last revised on 2017. Testing performed by: [facility], [address] [place] [phone] Eosinophil pct 3.0 % CERNER BJ Comment: Interpretive Data Percent cell count reference ranges are not reported, since discordance with absolute values may lead to misinterpretation of CBC data. Current Interpretive Data was last revised on 2017. Testing performed by: [facility], [address] [place] [phone] Basophil pct 2.0 % CERNER [facility] Comment: Interpretive Data Percent cell count reference ranges are not reported, since discordance with absolute values may lead to misinterpretation of CBC data. Current Interpretive Data was last revised on 2017. Testing performed by: [facility], [address] [place] [phone] Metamyelocyte pct 2.0(H) 0.0 - 0.0 % CERNER [facility] Comment:Testing performed by : [facility], [address] [place] [phone] RBC morphology NRBCs present(A ) BOO DYER Comment:Testing performed by : [facility], [address] [place] [phone] Polychromasia 1+(A) BOO [facility] Comment:Testing performed by : [facility], [address] [place] [phone] Anisocytosis 1+(A) BOO [facility] Comment:Testing performed by : [facility], [address] [place] [phone] Poikilocytosis 1+(A) BOO [facility] Comment:Testing performed by : [facility], [address] [place] [phone] Microcytes 1+(A) BOO [facility] Comment:Testing performed by : [facility], [address] [place] [phone] Macrocytes 1+(A) BOO [facility] Comment:Testing performed by : [facility], [address] [place] [phone] Elliptocytes 1+(A) BOO [facility] Comment:Testing performed by : [facility], [address] [place] [phone] Teardrop cells 1+(A) BOO [facility] Comment:Testing performed by : [facility], [address] [place] [phone] Platelet estimate Decreased (A) BOO [facility] Comment:Testing performed by : [facility], [address] [place] [phone] Giant platelets Present(A ) BOO [facility] Comment:Testing performed by : [facility], [address] [place] [phone] Blood 01/12/2025 8:50 AM CDT 01/12/2025 8:54 AM CDT us Vu Cruz MD LAB BLOOD ORDERABLES Final Re sult BOO DYER [facility] Department [place] [address] * Type and screen (01/12/2025 8:50 AM CDT) Pathologist [facility] Ros[place], indirect Negative ABO Rh O Positive [facility] Blood 01/12/2025 8:50 AM CDT 01/12/2025 9:17 AM CDT Narrative [facility] - 01/12/2025 10:05 AM CDT Has the patient had Daratumumab or Isatuximab in the past 6 months?->Unknown Vu Cruz MD LAB BLOOD BANK TEST [place] [address] * Lactate dehydrogenase (LD) (01/12/2025 8:50 AM CDT) [facility] Lactate dehydrogenase (LDH) 156 100 - 250 Units/L Blood 01/12/2025 8:50 AM CDT 01/12/2025 8:57 AM CDT Vu Cruz MD LAB BLOOD ORDERAB[place] [address] * (ABNORMAL) Comprehensive metabolic panel (01/12/2025 8:50 AM CDT) [facility] Sodium 142 135 - 145 mmol/L Potassium, pl 3.6 3.3 - 4.9 mmol/L [facility] Chloride 111(H) 97 - 110 mmol/L [facility] CO2 21(L) 22 - 32 mmol/L [facility] Anion gap 10 2 - 15 mmol/L [facility] BUN 12 6 - 25 mg/dL [facility] Creatinine 0.94 0.60 - 1.10 mg/dL [facility] Glucose 96 70 - 199 mg/dL [facility] Comment: Interpretive Data Fasting glucose >/= 126 mg/dl is diagnostic for diabetes. Fasting is defined as no caloric intake for at least 8 hours. Fasting glucose between 100 mg/dl to 125 mg/dl is diagnostic of prediabetes. In a patient with classic symptoms of hyperglycemia or hyperglycemic crisis, a random glucose >/= 200 mg/dl is diagnostic for diabetes. In the absence of unequivocal hyperglycemia, results should be confirmed by repeat testing. The classification and Diagnosis of Diabetes Diabetes Care 2021; 46: S19-S40. Current interpretive data was last revised 2022. Calcium 9.5 8.5 - 10.3 mg/dL [facility] Bilirubin, total 0.2 0.1 - 1.2 mg/dL [facility] Protein, pl 6.9 6.5 - 8.5 g/dL [facility] Albumin 3.9 3.5 - 5.0 g/dL [facility] Alk phos 99 40 - 130 Units/L [facility] ALT 11 7 - 45 Units/L [facility] AST 16 10 - 45 Units/L [facility] Blood 01/12/2025 8:50 AM CDT 01/12/2025 8:57 AM CDT Vu Cruz MD LAB BLOOD ORDERABLES Final Re sult [facility] Department of Laboratories [place], [place] [id number] * Surgical pathology (01/08/2025 9:44 AM CDT) Tissue (Miscellaneous) 01/08/2025 9:44 AM CDT 01/08/2025 9:44 AM CDT Narrative [facility] PATHOLOGY LAB - 01/20/2025 10:49 AM CDT EPIC results best viewed via link to PDF [facility] Venessa Osman [address], [address], [place] [address] Note to Patients: This report may contain a detailed description of human tissue sent by a health care provider to the laboratory for pathologic evaluation. The content of this report is essential for diagnosis and may provide important critical findings. This information may be unfamiliar to patients to review without a medical professional present. It is advised that the patient review this report in the presence of a health care provider who can answer questions and explain the details. SURGICAL PATHOLOGY REPORT * Consult Report * [facility] is providing an additional review of previously collected tissue. FINAL Patient Name: JUNIE SLADE Address: [address] [place] [id number] Gender: F : 1970 (Age: 54) Hospital #: [id number] Patient Type: EZRA Location: UNKNOWN Taken: 01/08/2025 Received: 01/08/2025 Accessioned: 01/08/2025 Reported: 01/20/2025 Physician(s): Vu Cruz M.D. [facility] Department of Pathology [address] [place] [id number] P: [phone] F: [phone] Diagnosis: Consult material received from [place], [place] ([facility]: [id number]; 11/06/2024). 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 Tho Villafuerte M.D. Report Electronically Reviewed and Signed Out By Tho Villafuerte M.D. 01/20/2025 10:49:09 Microscopic Description and Comment: ([facility] [id number], 11/06/2024) Peripheral blood: Peripheral blood smear shows normocytic normochromic anemia with mild anisocytosis. There is leukopenia with apparent neutropenia and lymphopenia. No circulating blasts are seen. Platelets are markedly decreased in number with normal morphology. Bone marrow aspirate smear, core, and clot: Aspirate smear/Touch prep: The Qwexiw-Nolxvu-tynnphy bone marrow aspirate smear is markedly hypocellular with no spicules. Touch prep is cellular and morphologic evaluation is preformed on touch prep. Megakaryocytes are decreased in number with none seen on markedly hemodilute specimen. Erythroid lineage cells are decreased in number and show appropriate maturation, without overt dyspoiesis. Myeloid lineage cells appear arrested at the blast stage with increased numbers. The vmpzinq-ol-vsdvehopk ratio appears increased with increased. No lymphoid aggregates are seen. Manual differential count (touch prep): A 100-cell manual differential count shows: Blasts: 32, Promyelocytes: 3, Myelocytes: 1, Metamyelocytes: 4, Bands: 1, Erythroids: 18, Lymphocytes: 41 Core biopsy: H&E-stained sections of the bone marrow core biopsy shows hypocellular marrow. Megakaryocytes appear decreased in number with normal morphology. Erythroid lineage cells are decreased in number and show appropriate maturation with no significant dyspoiesis. The gacfdpq-lw-dgxawucox ratio appears to be increased. No evidence of lymphoid aggregates are seen. Myeloid lineage appears arrested at blast stage with increased numbers. Immunohistochemistry and special stains were performed by the referring institution for the following antigens: CD34, CD117, E-cadherin, iron. Iron stain on the touch prep and aspirate is non-contributory. CD117 highlights increased blasts (5-10% of the total cellularity) with a subset co-expressing CD34. E-cadherin is essentially absent showing significant decrease in erythroid precursors. Clot: H&E-stained sections of the clot shows morphologic findings similar to the core biopsy. Flow cytometry: Flow cytometric analysis reported by the referring institution shows an immunophenotypically abnormal blast population that is consistent with myeloid differentiation comprising 5% of total cellular events. Antigens expressed: CD34 (subset), CD117, CD13, and CD38 Antigens not expressed: CD14, CD64, and CD56 Yoana Singh M.D. 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 Materials Received: Received for review are nineteen slides labeled [id number], accompanied by a corresponding pathology report. The material originates from [facility], [place], [place]. Selected slide(s) may be digitally scanned for our files, and all materials are returned to the referring institution, along with a copy of our final report. Any testing required for diagnostic purposes was performed in the Department of Pathology and Immunology at [facility], [address] [place] [address], [place] [facility] CLIA # [id number] The performance characteristics of the testing cited in this report (if any) were determined by the [facility] Department of Pathology and Immunology [facility], as part of an ongoing quality control associate program and in compliance with federally mandated regulations drawn from the Clinical Laboratory Improvement Act of 1988 (CLIA '88). Some of these tests rely on the use of analyte specific reagents (ASR) and are subject to specific labeling requirements by the US Food and Drug Administration. Such diagnostic tests may only be performed in a facility that is certified by the Department of Health and Human Services as a high complexity laboratory under CLIA '88. The FDA has determined that such clearance or approval is not necessary. ASRs should not be regarded as investigational or for research. ASRs were developed and the performance characteristics determined by the [facility], [facility] Department of Pathology and Immunology. It has not been cleared or approved by the U.S. Food and Drug Administration. Any test designated as LDT was developed and its performance characteristics determined by [facility]. It has not been cleared or approved by the FDA. This test is used for clinical purposes and should not be regarded as investigational or for research. Report images and/or scanned reports, if included, only viewable in PDF version of report. Vu Cruz MD LAB PATHOLOGY ORDERABLES Lilian cook Result [facility] PATHOLOGY LAB [address] [id number] from Last 3 Months Insurance [employer] [facility] Address: [address] [place] [address] [employer] Care Teams [facility] Worker Relationship Specialty Start Date End Date Miguelangel Espinoza MD [address] [place] [address] PCP - General 10/06/16 Delvin Tavares MD [address] [facility] [address] [place] [address] Referring Physician Hematology and Oncology 12/30/24 Vu Cruz MD [address] [facility] 8 DIV IM [employer], , [place] [address] Medical Oncologist/Hedge Fund Manager Medical Oncology 01/02/25
== END 2025-03-03 09:52 | disposition home or self-care (01) ==
PROVIDERS: PCP Family Medicine
DX: D70.9 Neutropenia, unspecified (principal); C92.00 Acute myeloblastic leukemia, not having achieved remission
CPT/HCPCS: 96372; Q5108

== ENCOUNTER 2025-04-28 08:46 | Outpatient (CLI) | payer BC, SELFPAY ==
[2025-04-28 09:10] VITALS: BP 125/82; PULSE 103; RESP 18; TEMP 35.8; O2SAT 100
[2025-04-28 09:11] VITALS: BMI 30.7
[2025-04-28] MEDS: PEGFILGRASTIM-JMDB 6 MG/0.6 ML SYRINGE SUB-Q (09:11)
--- OUTSIDE RECORDS SUMMARY | 2025-04-28 09:14 | XMS_ITS | Clinical Summary ---
Author Organization [address] Address [address] [place] [phone] Care Team Providers Care Garment Worker Name Role Phone Miguelangel Espinoza MD Primary Care Provider [phone] Delvin Tavares MD Unavailable [phone] UyVu MD Unavailable [phone] Allergies Active Allergy Reactions Criticality Noted Date Comments Gabapentin Other (See comments) 06/14/2016 Nerve issue Metronidazole Hives Medium 08/16/2021 Pregabalin Other (See comments) 06/14/2016 Rizatriptan Benzoate Anaphylaxis High 08/11/2014 rizatriptan benzoate Sulfamethoxazole-Trimet hoprim Hives,Rash,Shortness of breath High 11/22/2016 Sumatriptan-Naproxen Rash,Unknown Medium 11/22/2016 Trimethoprim Rash High 04/01/2022 Venom-Honey Bee Hives Medium 12/21/2016 honey bee venom Medications topiramate (TOPAMAX) 50 mg tabletIndications :Acute myeloid leukemia not having achieved remission (HCC) 1 tablet (50 mg total) For nerve pain 2 Active ondansetron (ZOFRAN) 4 mg tabletIndications :Acute myeloid leukemia not having achieved remission (HCC) 1 tablet (4 mg total) Active montelukast (SINGULAIR) 10 mg tabletIndications :Acute myeloid leukemia not having achieved remission (HCC) 1 tablet (10 mg total) 1 Active midodrine (PROAMATINE) 2.5 mg tabletIndications :Acute myeloid leukemia not having achieved remission (HCC) 1 tablet (2.5 mg total) 2 (two) times a day 4 Active midodrine (PROAMATINE) 5 mg tabletIndications :Acute myeloid leukemia not having achieved remission (HCC) 1 tablet (5 mg total) 2 (two) times a day 5 Active LORazepam (ATIVAN) 0.5 mg tabletIndications :Acute myeloid leukemia not having achieved remission (HCC) Take 1 tablet (0.5 mg total) by mouth 2 (two) times a day Active loratadine (CLARITIN) 10 mg tabletIndications :Acute myeloid leukemia not having achieved remission (HCC) Take 1 tablet (10 mg total) by mouth daily 5 Active levoFLOXacin (LEVAQUIN) 500 mg tabletIndications :Acute myeloid leukemia not having achieved remission (HCC) Take 1 tablet (500 mg total) by mouth daily 5 Active famotidine (PEPCID) 40 mg tabletIndications :Acute myeloid leukemia not having achieved remission (HCC) 1 tablet (40 mg total) 4 Active albuterol HFA (PROVENTIL HFA,VENTOLIN HFA,PROAIR HFA) 90 mcg/actuation inhalerIndication s:Acute myeloid leukemia not having achieved remission (HCC) Inhale 2 puffs every 4 (four) hours as needed 6 Active acetaminophen (TYLENOL) 325 mg tabletIndications :Acute myeloid leukemia not having achieved remission (HCC) Take 2 tablets (650 mg total) by mouth every 6 (six) hours as needed Active erenumab-aooe (AIMOVIG) 70 mg/mL auto-injector subcutaneous injectionIndicati ons:Acute myeloid leukemia not having achieved remission (HCC) 1 mL (70 mg total) every 30 (thirty) days 2 Active fluconazole (DIFLUCAN) 200 mg tabletIndications :Acute myeloid leukemia not having achieved remission (HCC) 1 tablet (200 mg total) 5 Active acyclovir (ZOVIRAX) 400 mg tabletIndications :Acute myeloid leukemia not having achieved remission (HCC) 1 tablet (400 mg total) 2 (two) times a day 5 Active prochlorperazine (COMPAZINE) 10 mg tabletIndications :Acute myeloid leukemia not having achieved remission (HCC) 1 tablet (10 mg total) every 8 (eight) hours as needed 5 Active L. gasseri-B. bifidum-B longum 1.5 billion cell capsule Take by mouth 4 Active cholecalciferol 25 mcg (1,000 unit) tablet Take 1 tablet (1,000 Units total) by mouth daily 5 Active magnesium glycinate 120 mg capsule Active Rydapt 25 mg capsule [address] (PROTONIX) 20 mg EC tablet Take 1 tablet (20 mg total) by mouth daily Active potassium chloride (KLOR-CON) 20 mEq packet Take 1 packet (20 mEq total) by mouth 2 (two) times a day Dissolve each packet in at least 4 ounces (120 mL) of cold water or other beverage prior to administratio n. Active oxyCODONE (ROXICODONE) 5 mg immediate release tabletIndications :Pain Take 1 tablet (5 mg total) by mouth every 6 (six) hours as needed for pain 60 tablet 5 Active Active Problems Problem Noted Date Diagnosed Date Acute myeloid leukemia not having achieved remis aiden 01/02/2025 Encounters Date Type Department Care Team Description 04/03/2025 Telephone [facility] Medicine Scheduling [address] [place] [address] Saida Gillespie 04/02/2025 Orders Only [facility] ONCOLOGY Scanning, Provider 03/31/2025 Orders Only [facility] Medicine Pathology Outreach [address] [place] [address] Vu Cruz MD Acute myeloid leukemia not having achieved remission (HCC) 03/30/2025 5:09 PM CDT - 03/30/2025 11:59 PM CDT Hospital Encounter [facility] PATHOLOGY [address] [facility] 3rd [place] [address] Acute myeloid leukemia not having achieved remission (HCC) Discharge Disposition: Discharge to home or self care 03/30/2025 4:00 PM CDT Infusion [facility] - Infusion [address] [facility] Floor 6 [phone] Acute myeloid leukemia not having achieved remission (HCC) (Primary Dx) 03/30/2025 3:15 PM CDT Office Visit [facility] Medicine Bone Marrow Transplant [facility] [address] [phone] Vu Cruz MD Acute myeloid leukemia not having achieved remission (HCC) (Primary Dx) 03/30/2025 2:15 PM CDT Clinical Support [facility] Medicine Oncology Lab [address] [place] [phone] Acute myeloid leukemia not having achieved remission (HCC) 03/30/2025 2:00 PM CDT Clinical Support [facility] [place] - Lab Collection [address] [place] [phone] Acute myeloid leukemia not having achieved remission (HCC) 03/19/2025 Orders Only [facility] Medicine Bone Marrow Transplant [address] [place] [phone] 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, telemarketing manager myeloid leukemia not having achieved remission (HCC) (Primary Dx) 03/16/2025 [facility] [address] [place] [phone] Saida Gillespie 02/27/2025 Orders Only [facility] Medicine Bone Marrow Transplant [address] [place] [phone] 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, telemarketing manager myeloid leukemia not having achieved remission (HCC) (Primary Dx) 02/26/2025 Orders Only [facility] Medicine Bone Marrow Transplant [address] [place] [phone] 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, telemarketing manager myeloid leukemia not having achieved remission (HCC) (Primary Dx) 02/23/2025 3:45 PM CDT Office Visit [facility] Medicine Bone Marrow Transplant [address] [place] [phone] Vu Cruz MD Acute myeloid leukemia not having achieved remission (HCC) 02/23/2025 3:30 PM CDT Clinical Support [facility] [facility] - Lab Collection [address] [place] [address] Acute myeloid leukemia not having achieved remission (HCC) 02/23/2025 3:15 PM CDT Lab [facility] Medicine Oncology Lab [address] [place] [phone] Acute myeloid leukemia not having achieved remission (HCC) 02/23/2025 1:31 PM CDT - 02/23/2025 11:59 PM CDT Hospital Encounter [facility] - Cardiac Diagnostic Lab [address] [facility] Floor 8 [place] [address] Acute myeloid leukemia not having achieved remission (HCC) Discharge Disposition: Discharge to home or self care 02/23/2025 12:00 PM CDT Social Work [facility] [address] [facility], 8th Floor, [address] [address] Kaylynn Menon LCSW 02/23/2025 9:16 AM CDT - 02/23/2025 11:59 PM CDT Hospital Encounter [facility] Medicine PFT Lab [address] [facility] Floor 1, [address] [phone] Acute myeloid leukemia not having achieved remission (HCC) Discharge Disposition: Discharge to home or self care 02/23/2025 8:46 AM CDT - 02/23/2025 11:59 PM CDT Hospital Encounter [facility] [address] [place] [address] Acute myeloid leukemia not having achieved remission (HCC) Discharge Disposition: Discharge to home or self care 02/23/2025 8:46 AM CDT - 02/23/2025 11:59 PM CDT Hospital Encounter [facility] [address] [place] [phone] Acute myeloid leukemia not having achieved remission (HCC) Discharge Disposition: Discharge to home or self care 02/12/2025 Orders Only [facility] Medicine Bone Marrow Transplant [address] [facility] Floor 6 [phone] Vu Cruz MD Acute myeloid leukemia not having achieved remission (HCC) (Primary Dx) 02/12/2025 Telephone [facility] Bone Marrow Transplant [address] [facility] Floor 6 [phone] Leslie Dumont V. 01/26/2025 Orders Only [address] [phone] Leslie Dodson Acute myeloid leukemia not having [...] often do you attend chur ch or samaritan services? More than 4 times per year 02/24/2025 Do you belong to any clubs o r organizations such as confucianism groups, unions, fraternal or athletic groups, or [...] any time in the past 12 m [facility], were you homeless or living in a care home (including now)? No 02/24/2025 [facility] Utilities Answer Date Recorded In the past 12 months has th e electric, gas, oil, or water company threatened to shut off services in your home? No 02/24/2025 Comments Unknown Sex and Gender Information Value Date Recorded Sex Assigned at Not on file Legal Sex Female 5:44 PM [employer] Gender Identity Not on file Sexual Orientation Not on file Last Filed Vital Signs Vital Sign Reading Time Taken Comments Blood Pressure 108/68 03/30/2025 5:10 PM CDT Pulse 83 03/30/2025 5:10 PM CDT Temperature 36.2 C (97.2 F) 03/30/2025 2:33 PM CDT Respiratory Rate 18 03/30/2025 5:10 PM CDT Oxygen Saturation 100% 03/30/2025 5:10 PM CDT Inhaled Oxygen Concentration - - Weight 81.6 kg (180 lb) 03/30/2025 2:33 PM CDT Height 165 cm (5' 4.96) 01/12/2025 9:10 AM CDT Body Mass Index 29.99 01/12/2025 9:10 AM CDT Plan of Treatment Health Maintenance Due Date Last Done Comments Cervical Cancer Screening 1970 Colon Cancer Screening-Colonoscopy 1970 Depression Screening 1970 Regular Well Visit/Exam 18-64 02/15/1990 Pneumococcal vaccine <65 (1 of 2 - PCV) 02/15/1991 Covid-19 Vaccine (3 - Pfizer risk series) 07/13/2021 06/15/2021, 03/03/2021 Influenza Vaccine (#1) 2025 , 02/22/2023, 04/24/2022, Additional history exists Breast Cancer Screening-Mammogram 05/01/2025 05/01/2024, 05/01/2024, 04/26/2023, Additional history exists DTaP/Tdap/Td Vaccine (3 - Td or Tdap) 02/14/2032 02/13/2022, 02/13/2012 Hepatitis B Screening Completed 02/13/2012 Zoster Vaccine Completed 07/07/2022, 04/24/2022 Hepatitis C Screening Completed 03/30/2025, 025 Procedures Procedure Name Priority Date/Time Associated Diagnosis Comments SCAN - PATHOLOGY 04/02/2025 4:16 PM CDT MEASURABLE RESIDUAL DISEASE (MRD) MYELOSEQ HEME NGS PANEL WITH INTERPRETATION Routine 03/30/2025 5:09 PM CDT Acute myeloid leukemia not having achieved remission (HCC) SURGICAL PATHOLOGY Routine 03/30/2025 5: 09 PM CDT Acute myeloid leukemia not having achieved remission (HCC) FLOW LEUKEMIA/LYMPHOMA Routine 03/30/2025 5:09 PM CDT Acute myeloid leukemia not having achieved remission (HCC) MISCELLANEOUS MOLECULAR SEND-OUT REQUEST Routine 03/30/2025 5:09 PM CDT CYTOGENETICS Routine 03/30/2025 5:09 PM CDT Acute myeloid leukemia not having achieved remission (HCC) MINIMAL RESIDUAL DISEASE-AML Routine 03/30/2025 5:09 PM CDT Acute myeloid leukemia not having achieved remission (HCC) HEMATOLOGIC MOLECULAR ALGORITHM Routine 03/30/2025 5:09 PM CDT Acute myeloid leukemia not having achieved remission (HCC) MISCELLANEOUS MOLECULAR SEND-OUT REQUEST Routine 03/30/2025 5:09 PM CDT Acute myeloid leukemia not having achieved remission (HCC) NPM1 MUTATION DETECTION BY RT-PCR, QUANTITATIVE Routine 03/30/2025 5:09 PM CDT EGFR Routine 03/30/2025 2:05 PM CDT Acute myeloid leukemia not having achieved remission (HCC) DIFFERENTIAL AUTO Routine 03/30/2025 2:0 5 PM CDT Acute myeloid leukemia not having achieved remission (HCC) LACTATE DEHYDROGENASE Routine 03/30/2025 2:05 PM CDT Acute myeloid leukemia not having achieved remission (HCC) CBC WITH AUTO DIFFERENTIAL Routine 03/30/2025 2:05 PM CDT Acute myeloid leukemia not having achieved remission (HCC) COMPREHENSIVE METABOLIC PANEL Routine 03/30/2025 2:05 PM CDT Acute myeloid leukemia not having achieved remission (HCC) TYPE AND SCREEN Routine 03/30/2025 2:05 PM CDT Acute myeloid leukemia not having achieved remission (HCC) ESTRADIOL Routine 03/30/2025 2:05 PM CDT Acute myeloid leukemia not having achieved remission (HCC) FOLLICLE STIMULATING HORMONE Routine 03/30/2025 2:05 PM CDT Acute myeloid leukemia not having achieved remission (HCC) HCG, BLOOD, QUANTITATIVE Routine 03/30/2025 2:05 PM CDT Acute myeloid leukemia not having achieved remission (HCC) HEMOGLOBIN A1C Routine 03/30/2025 2:05 PM CDT Acute myeloid leukemia not having achieved remission (HCC) HTLV-I/II ANTIBODIES, QUAL Routine 03/30/2025 2:05 PM CDT Acute myeloid leukemia not having achieved remission (HCC) LUTEINIZING HORMONE (LH) Routine 03/30/2025 2:05 PM CDT Acute myeloid leukemia not having achieved remission (HCC) MAGNESIUM Routine 03/30/2025 2:05 PM CDT Acute myeloid leukemia not having achieved remission (HCC) PROTIME-INR Routine 03/30/2025 2:05 PM CDT Acute myeloid leukemia not having achieved remission (HCC) PTH Routine 03/30/2025 2:05 PM CDT Acute myeloid leukemia not having achieved remission (HCC) APTT Routine 03/30/2025 2:05 PM CDT Acute myeloid leukemia not having achieved remission (HCC) T4, FREE Routine 03/30/2025 2:05 PM CDT Acute myeloid leukemia not having achieved remission (HCC) TRIGLYCERIDES Routine 03/30/2025 2:05 PM CDT Acute myeloid leukemia not having achieved remission (HCC) TSH Routine 03/30/2025 2:05 PM CDT Acute myeloid leukemia not having achieved remission (HCC) VITAMIN D 25 HYDROXY Routine 03/30/2025 2:05 PM CDT Acute myeloid leukemia not having achieved remission (HCC) URIC ACID Routine 03/30/2025 2:05 PM CDT Acute myeloid leukemia not having achieved remission (HCC) HLA ANTIBODY SCREEN - SAB (CLASS I AND CLASS II) Routine 03/30/2025 2:05 PM CDT Acute myeloid leukemia not having achieved remission (HCC) HLA ANTIBODY SCREEN BY SINGLE ANTIGEN Routine 03/30/2025 2:05 PM CDT Acute myeloid leukemia not having achieved remission (HCC) HEPATITIS PANEL, ACUTE Routine 03/30/2025 2:05 PM CDT Acute myeloid leukemia not having achieved remission (HCC) CMV, IGG Routine 03/30/2025 2:05 PM CDT Acute myeloid leukemia not having achieved remission (HCC) HEPATITIS B CORE ANTIBODY, TOTAL Routine 03/30/2025 2:05 PM CDT Acute myeloid leukemia not having achieved remission (HCC) HIV 1/2 ANTIBODY PLUS P24 ANTIGEN Routine 03/30/2025 2:05 PM CDT Acute myeloid leukemia not having achieved remission (HCC) HSV 1 ANTIBODY, IGG Routine 03/30/2025 2 :05 PM CDT Acute myeloid leukemia not having achieved remission (HCC) HSV 2 ANTIBODY, IGG Routine 03/30/2025 2 :05 PM CDT Acute myeloid leukemia not having achieved remission (HCC) RPR Routine 03/30/2025 2:05 PM CDT Acute myeloid leukemia not having achieved remission (HCC) TOXOPLASMA GONDII ANTIBODY, IGG Routine 03/30/2025 2:05 PM CDT Acute myeloid leukemia not having achieved remission (HCC) HLA DONOR SPECIFIC ANTIBODY REPORT 03/26/2025 12:49 PM CDT HLA DONOR SPECIFIC ANTIBODY REPORT 03/26/2025 12:49 PM CDT HLA HEMATOPOIETIC STEM CELL TYPING REPORT 03/24/2025 12:48 PM CDT HLA DONOR SPECIFIC ANTIBODY REPORT 03/20/2025 9:14 AM CDT HLA DONOR SPECIFIC ANTIBODY REPORT 03/20/2025 8:59 AM CDT HLA HEMATOPOIETIC STEM CELL TYPING REPORT 03/17/2025 11:59 AM CDT HLA HEMATOPOIETIC STEM CELL TYPING REPORT 03/11/2025 10:15 AM CDT HLA HEMATOPOIETIC STEM CELL TYPING REPORT 03/10/2025 12:48 PM CDT HLA HEMATOPOIETIC STEM CELL TYPING REPORT 03/03/2025 [...] CELL TYPING REPORT 02/13/2025 12:53 PM CDT from Last 3 Months Results * SCAN - PATHOLOGY (04/02/2025 4:16 PM CDT) us Provider Scanning Final Result * NPM1 Mutation Detection by RT-PCR, Quantitative Bone marrow (03/30/2025 5:09 PM CDT) NPM1 Report See attached scanned report for results. Bone marrow 03/30/2025 5:09 PM CDT 03/31/2025 4:07 PM CDT us Vu Cruz MD LAB MICROBIOLOGY - GENERAL OR DERABLES Final Result BOO [facility] Department [place] [address] * Measurable Residual Disease (MRD) MyeloSeq Heme NGS Panel with Interpretation Bone marrow (03/30/2025 5:09 PM CDT) Bone marrow (Bone Marrow Biopsy) 03/30/2025 5:09 PM CDT 03/31/2025 11:11 AM CDT Narrative [facility] DIAGNOSTIC LAB - CYTOGENETICS - 04/10/2025 9:44 PM CDT [facility] Pathology Services [address] [place] [address] Final Report Patient Name: JUNIE SLADE Address: [address] [place] [address] Gender: F : 1970 (Age: 55) Accessioned: 03/31/2025 Taken: 03/30/2025 Received: 03/31/2025 Physician(s): Vu Cruz M.D. Service: [facility] Location: [facility] #: [id number] Patient Type: [facility]-EPIC MyeloSeq-MRD Molecular DiagnosticsReported:04/10/2025 Varients Detected: GENE EXON VARIANT PROTEIN CHANGE VAF CLINICAL SIGNIFICANCE* PREVIOUSLY DETECTED No mutations detected Please see below for variant classification category details The following prior mutations were not detected: None No mutations were detected in the following sequenced genes and hotspots: ASXL1, BCOR, BCORL1, BRAF, CALR, CBL, CEBPA, CHEK2, CSF3R, DDX41, DNMT3A, ETNK1, ETV6, EZH2, FLT3, GATA1, GATA2, GNB1, IDH1, IDH2, JAK2, KIT, KMT2A, KRAS, MPL, NF1, NOTCH1, NPM1, NRAS, PHF6, PIGA, PPM1D, PRPF8, PTPN11, RAD21, RUNX1, SETBP1, SF3B1, SRSF2, STAG2, STAT3, STAT5B, TET2, TP53, U2AF1, UBA1, UBTF, WT1, ZRSR2 Variant Interpretation: Previously identified variants in NPM1, FLT3 and GATA2 at another laboratory are not seen, consistent with mutation clearance and measurable residual disease (MRD) negative status at a sensitivity of at least 0.1% VAF. Overall quality worker metrics are within normal limits. Clinical History: 54-year-old woman with a history of acute myeloid leukemia diagnosed on 2024-10-24 at an outside hospital, with a normal karyotype and NGS performed at [facility] showing NPM1 W288fs*12, FLT3 [id number], FLT3 [id number], FLT3 [id number], and GATA2 G374S, who is being treated and who presents for evaluation of a bone marrow transplant. Corresponding bone marrow biopsy ([id number]) shows hypocellular marrow with trilineage maturation and no increased blasts. Corresponding chromosomal analysis ([id number]) is pending. Specimen site: Bone marrow Variant Detail: Gene [...] the CLIA Licensed Environment laboratory at the [facility] ([facility], CLIA #[id number], CAP #[id number]), Dr. Calin Jimenez MD, PhD, FCAP, Hand Plug Shaper. [address] [facility], [address] [place], [place] [address] . The [facility] laboratory is regulated under CLIA as certified to perform high-complexity testing. Interpretation of sequencing results and case sign out is performed by Pathology and Immunology faculty in the Division of Genomic and Molecular Pathology (-[facility], CLIA #[id number], CAP #[id number]) Dr. Montse Solis Ph.D., Hand Plug Shaper. [facility], [facility] [facility], [address], [place] [address] [phone] . The [facility] is regulated [...] 30GBases of sequencing data generated on an emids X Plus. This test has been validated [...] Such information and correlations are subject to private branch exchange service advisor time in response to future scientific and [...] of the Report may be adversely impacted. [facility] is not obligated to notify you of [...] or inaccurate information included within the Report. Indio Rodas M.D.Report Electronically Reviewed and Signed Out By Indio Rodas M.D. 04/10/2025 21:42:19 Vu Cruz MD LAB PATHOLOGY ORDERABLES Lilian joey Result [facility] DIAGNOSTIC LAB - CYTOGENETICS [address] [place] [address] * Cytogenetics Bone marrow (03/30/2025 5:09 PM CDT) Bone marrow (Bone Marrow Biopsy) 03/30/2025 5:09 PM CDT 03/30/2025 5:09 PM CDT Narrative [facility] DIAGNOSTIC [facility] - CYTOGENETICS - 04/20/2025 5:29 PM [employer] EPIC results best viewed via link to PDF [facility] Department of Pathol [address] [place] [id number] Patient Information Name: JUNIE SLADE Gender: F : 1970 (Age: 55) Tissue: Bone Marrow w/ FISH Visit Information Hospital #: [id number] Facility: [facility] Service: [facility] Location: UNKNOWN Patient Type: [facility] Specimen Information: Culture #: [id number] Date Collected: 03/30/2025 Date Accessioned: 03/31/2025 Date Ordered: 03/30/2025 Physician(s): Vu Cruz M.D. Processin hours unstimulated Indication: Acute myeloid leukemia not having achieved remission Specimen Quality: Low cell count Adequate: Chromosome analysis CLINICAL REPORT CHROMOSOME ANALYSIS Metaphases Counted: 20Banding Technique: GTWColonies Counted: Metaphases Analyzed: 20Additional Method: Number of Cultures: 1Metaphases Karyotyped: 3Banding Resolution: 400 Subculture: Karyotype: 46,XX[20] Diagnosis: CHROMOSOME ANALYSIS: NO EVIDENCE OF CLONAL ABERRATIONS INTERPRETATION: No clonal cytogenetic aberrations were identified in metaphase cells analyzed from an unstimulated culture. This normal result does not exclude a neoplastic proliferation. Small chromosome anomalies may not be detectable using the standard methods employed. Chromosome analysis was performed at a level of 400 bands or greater. These chromosome findings must be interpreted within the context of the pathologic and clinical findings. Follow-up evaluation is recommended. Chromosome analysis and Fluorescence In Situ Hybridization (FISH) analysis are performed using the [employer] Imaging System. Report Electronically Reviewed and Signed Out By Valeriano Gabriel, PhD, FACDate Reported: 04/20/2025ssistant Professor, Division of Genomic & Molecular Pathology Vu Cruz MD LAB GENETIC TESTING Final Res ult [facility] DIAGNOSTIC LAB - CYTOGENETICS [address] [place] [address] * Minimal Residual Disease-AML (03/30/2025 5:09 PM CDT) Pathologist [facility] MRD-AML See scanned report Comment: Testing performed by: [employer]. [address], [address] [place] [address] Revised on 03/06/2018 Bone marrow 03/30/2025 5:09 PM CDT 03/31/2025 10:18 AM CDT Narrative [facility] - 04/03/2025 8:03 AM CDT Clinical History / Treatment Plan:->AML Vu Cruz MD LAB BODY FLUIDS AND STOOLS OR DERABLES Final Result Performing Organization Address [facility] Co de Phone Number [facility] [place] [address] * Flow Leukemia/Lymphoma Bone marrow (03/30/2025 5:09 PM CDT) [facility] Stain Test Completed Leukemia/Lymp jennifer Result See separate Surgical Pathology report. [facility] Bone marrow 03/30/2025 5:09 PM CDT 03/31/2025 12:02 PM CDT Narrative [facility] - 04/01/2025 1:44 PM CDT Tube information: Green top (Sodium Heparin) Vu Cruz MD LAB PATHOLOGY ORDERABLES Lilian l Result [facility] [place] [address] * -Miscellaneous Molecular Send-Out Request (03/30/2025 5:09 PM CDT) Result 1 Test Name: FLT3 ITD MRD by NGS (Lab PMM) Specimen Type: BM Result: See attached scanned report for results. Test name FLT3 ITD MRD by NGS (Lab PMM) [facility] Bone marrow 03/30/2025 5:09 PM CDT 03/31/2025 12:52 PM CDT Narrative [facility] [facility] 04/14/2025 3:07 PM CDT Test Requested:->FLT3 ITD MRD Vu Cruz MD LAB GENETIC TESTING Final Res ult Performing Organization Address City/[facility] Co de Phone Number [facility] Department of [place] [address] * NPM1 PCR -Miscellaneous Molecular Send-Out Request (03/30/2025 5:09 PM CDT) Result 1 See comment Comment:Credited, lab order error. Test name FLT3 ITD MRD by NGS (Lab PMM) [facility] Comment:Credited, lab order error. Bone marrow 03/30/2025 5:09 PM CDT 03/31/2025 12:52 PM CDT Narrative [facility] - 04/14/2025 3:11 PM CDT Test Requested:->FLT3 ITD MRD Vu Cruz MD LAB GENETIC TESTING Final Res ult [facility] [place] [address] * Hematologic Molecular Algorithm Bone marrow (03/30/2025 5:09 PM CDT) Heme Molecular Algorithm Received Bone marrow 03/30/2025 5:09 PM CDT 03/31/2025 12:52 PM CDT Narrative BOO [facility] - 04/08/2025 11:50 AM CDT Tube information: [place] top Select diagnosis - - Appropriate molecular tests will be performed based on histopathological diagnosis.->AML 04/03/2025 - HMA complete, FLT3 ITD MRD testing ordered. Vu Cruz MD LAB BODY FLUIDS AND STOOLS OR DERABLES Final Result [facility] Department [place] [address] * Surgical pathology (03/30/2025 5:09 PM CDT) Bone marrow (Bone Marrow Biopsy) 03/30/2025 5:09 PM CDT 03/31/2025 7:56 AM CDT Narrative PATHOLOGY [facility] - 04/02/2025 5:00 PM CDT EPIC results best viewed via link to PDF [facility] [place] [address] Note to Patients: This report may contain [...] JUNIE SLADE Gender: F : 1970 (Age: 55) Address: [address] [place], [place] [id number] Hospital #: [id number] Taken:03/30/2025 Received:03/31/2025 Reported: 04/02/2025 Patient Type: [facility] SPECIMEN Service: Laboratory Location: Physician(s): Vu Cruz M.D. Diagnosis: Bone marrow, left posterior iliac crest, core biopsy, clot, and aspirate: - Hypocellular marrow with trilineage maturation and no increased blasts /04/01/2025 13:27 By this signature, I attest that the above diagnosis is based upon my personal examination of the slides(and/or other material indicated in the diagnosis). Indio Rodas M.D. Report Electronically Reviewed and Signed Out By Indio Rodas M.D. 04/02/2025 17:00:10 Diagnosis Comment For details on the peripheral blood smear (if submitted), bone marrow aspirate, and core biopsy, please see the attached synoptic report. If applicable, correlation with concurrent flow cytometry (Addenda/Procedures below), cytogenetics/FISH, and molecular studies is suggested for full evaluation. Microscopic Description and Comment: Stains of the bone marrow core show no increased CD34 or CD117 positive blasts (<5%). 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 He is on consolidation for HiDAC cycle 2. Bone marrow biopsy. Specimen(s) Received: A: Bone marrow biopsy, left posterior iliac crest B: Bone Marrow Clot - BJ C: Bone marrow, left aspirate for flow cytometry Gross Description: Received in two formalin jars labeled with the patient's identifiers. A. Received in formalin, labeled left core and consists of a single graham and brown cores of bone measuring 1.8 cm in length by 0.2 cm in diameter. Labeled A1. EDTA decalcification.. Jar 0. B. Received in formalin, labeled left clot and consists of a 4.2 x 1.7 x 0.5 cm fragment of hemorrhagic material. Labeled B1. Jar 1. sxst/03/31/2025 11:13 PA(s): Maru Pozo CBC: Date: 03/30/25 WBCs: 3.23x10^3/mcl Hemoglobin: 10.6g/dl Hematocrit: 31.4% Platelets: 66x10^3/mcl Mean corpuscular volume (MCV): 87.1fl Red cell distribution width (RDW-CV): 17.8% Neutrophils, absolute: 2.55 K/cumm Lymphocytes, absolute: 0.20 K/cumm Monocytes, absolute: 0.46 K/cumm Eosinophils, absolute: 0.00 K/cumm Basophils, absolute: 0.02 K/cumm Neutrophils: 78.8% Lymphocytes: 6.1% Monocytes: 14.4% Eosinophils: 0.1% Basophils: 0.6% Peripheral blood smear (Greenwood-Giemsa): The peripheral blood morphology reflects the CBC values. Bone marrow aspirate smear (Greenwood-Giemsa stain): Quality: Dilute Spicules: None Marrow cellularity: Not evaluable Myeloid maturation: Normal, Abnormal lobation, Abnormal granulation Erythroid maturation: Normal Myeloid/Erythroid Ratio: Within normal limits Megakaryocyte number: Unable to evaluate Megakaryocytic maturation: Unable to evaluate Lymphocytes: Normal Plasma cells: Normal Iron: Aspicular aspirate insufficient for interpretation/non-contributory Differential count: Total # of Cells Counted:100 Blasts: 0 Promyelocytes: 0 Myelocytes+Metamyelocytes:19 Bands+Neutrophils:52 Eosinophils: 0 Basophils: 0 Plasma cells: 0 Lymphocytes: 5 Monocytes: 1 Erythroids: 23 Bone marrow core biopsy (decalcified, H&E and Leder stains): Left, iliac crest Quality: Adequate Cellularity: 10% Myeloid maturation: Normal Erythroid maturation: Normal, Left-shifted The Leder stain shows that the Myeloid/Erythroid Ratio is: Within normal limits Megakaryocyte number: Unable to evaluate Megakaryocytic maturation: Unable to evaluate The Leder stain is used to assess for lymphoid aggregates: None Plasma cells: Scattered Reticulin and Trichrome stains show: No significant fibrosis (MF-0) CLOT SECTION: The bone marrow clot section including Leder and H&E stains are: Consist of clotted blood with minimal evaluable marrow By this signature, I attest that the above diagnosis is based upon my personal examination of the slides(and/or other material). Addenda/Procedures Flow Cytometry Ordered:03/31/2025Status:Signed OutFlow Cytometry Complete:04/02/2025y:Indio Rodas M.D.Flow Cytometry Signed Out: 04/02/2025 Diagnosis Bone marrow, left aspirate for flow cytometry: - No increased blasts Comment Specimen quality: Adequate Flow cytometry identifies no increase in myeloid blasts. Flow cytometry analysis shows the CD45 dim-gated events are 1.6% of overall cellularity of the specimen, with a subset positive for expression of CD34 and CD117. Monocyte-gated events account for 7.4% of overall cellularity and express CD13, CD33, CD64, and CD14. Lymphocyte-gated events account for 7% of the overall cellularity. CD3+ T-cells (comprising 59% of lymphocytes) show no significant loss of benito T- cell antigens and have a CD4 to CD8 ratio within normal limits. There is an increased population of CD56+ events (28% of lymphocytes) consistent with natural killer cells. There is no overt increase in CD38+ plasma cells. Correlation with morphology (if submitted), clinical, laboratory, and genetic findings is required for definitive diagnosis. A malignant process cannot be excluded solely on the basis of this assay. A Greenwood-Giemsa stained cytospin from the flow cytometry specimen was examined for internal quality worker purposes. Flow cytometry was performed using antibodies to the following cellular antigens: CD45, CD34, CD2, CD3, CD4, CD5, CD7, CD8, CD56, TCR-GD, CD16, CD10 , CD13, CD14, CD64, HLR-DR, CD11b, CD15, CD123, CD117, CD33, CD38, CD19. Total antigens analyzed: 23 By this signature, I attest that the above diagnosis is based upon my personal examination of the slides(and/or other material indicated in the diagnosis). Indio Rodas M.D.Report Electronically Reviewed and Signed Out By Indio Rodas M.D. 04/02/2025 16:56:07 The performance characteristics of some immunohistochemical stains, fluorescence in-situ hybridization tests and immunophenotyping by flow cytometry cited in this report (if any) were determined by the Surgical Pathology and Flow Cytometry Departments at [facility] as part of an ongoing quality control tech raw materials program and in compliance with federally mandated [...] Surgical Pathology and Flow Cytometry Departments of [facility]. It has not been cleared or approved by the U. S. Food and Drug Administration. IMAGES AND SCANNED DOCUMENTS, IF INCLUDED, ONLY VIEWABLE IN PDF VERSION OF REPORT Vu Cruz MD LAB PATHOLOGY ORDERABLES Lilian l Result PATHOLOGY [facility] IO 3rd Floor [place], [place] [phone] * Collection Task for HLA Antibody Screen (03/30/2025 2:05 PM CDT) HLA Antibody Screen By Single Antigen Received Blood 03/30/2025 2:05 PM CDT 03/31/2025 10:02 AM CDT Vu Cruz MD LAB BLOOD ORDERABLES Final Re sult Performing Organization Address City/[facility] Co de Phone Number [facility] Department [place] [address] * eGFR (03/30/2025 2:05 PM CDT) eGFR 71 >=60 mL/min/1. 73 m2 Comment: Interpretive Data [...] interpretive data was last reviewed 2021. Blood 03/30/2025 2:05 PM CDT 03/30/2025 2:16 PM CDT us Vu Cruz MD LAB BLOOD ORDERABLES Final Re sult [facility] Department [place] [address] * (ABNORMAL) Differential, auto (03/30/2025 2:05 PM CDT) Neutrophil abs 2.55 1.50 - 6.50 K/cumm Comment:Testing performed by : [facility], [address] [place] [address] Lymphocyte abs 0.20(L) 0.80 - 3.30 K/cumm CERNER MANISHA Comment:Testing performed by : [facility], [address] [place] [address] Monocyte abs 0.46 0.20 - 0.80 K/cumm BOO DYER Comment:Testing performed by : [facility], [address] [place] [address] Eosinophil abs 0.00 0.00 - 0.50 K/cumm BOO DYER Comment:Testing performed by : [facility], [address] [place] [address] Basophil abs 0.02 0.00 - 0.10 K/cumm CERNER BJ Comment:Testing performed by : [facility], [address] [place] [address] Neutrophil pct 78.8 % CERNER BJ Comment: Interpretive Data Percent cell count reference ranges are not reported, since discordance with absolute values may lead to misinterpretation of CBC data. Current Interpretive Data was last revised on 2017. Testing performed by: [facility], [address] [place] [address] Lymphocyte pct 6.1 % CERNER BJ Comment: Interpretive Data Percent cell count reference ranges are not reported, since discordance with absolute values may lead to misinterpretation of CBC data. Current Interpretive Data was last revised on 2017. Testing performed by: [facility], [address] [place] [phone] Monocyte pct 14.4 % [facility] Comment: Interpretive Data Percent cell count reference ranges are not reported, since discordance with absolute values may lead to misinterpretation of CBC data. Current Interpretive Data was last revised on 2017. Testing performed by: [facility], [address] [place] [phone] Eosinophil pct 0.1 % BOO [facility] Comment: Interpretive Data Percent cell count reference ranges are not reported, since discordance with absolute values may lead to misinterpretation of CBC data. Current Interpretive Data was last revised on 2017. Testing performed by: [facility], [address] [place] [phone] Basophil pct 0.6 % BOO [facility] Comment: Interpretive Data Percent cell count reference ranges are not reported, since discordance with absolute values may lead to misinterpretation of CBC data. Current Interpretive Data was last revised on 2017. Testing performed by: [facility], [address] [place] [phone] Blood 03/30/2025 2:05 PM CDT 03/30/2025 2:13 PM CDT Vu Cruz MD LAB BLOOD ORDERABLES Final Re sult [facility] Department [place] [address] * HTLV-I/II antibodies, qualitative (03/30/2025 2:05 PM CDT) HTLV 1-2, Antibodies Negative Negative [facility] Comment: Test Performed by: [facility] [address] [place] [phone] Centrifuge Separator Operator: Ingrid Beltrán Ph.D.; CLIA# [id number] Blood 03/30/2025 2:05 PM CDT 03/30/2025 2:56 PM CDT us Vu Cruz MD LAB BLOOD ORDERABLES Final Re sult Performing Organization Address [facility] [place]/[facility] Co de Phone Number [facility] [place] [address] [facility] * HIV 1/2 Antibody plus p24 Antigen Blood (03/30/2025 2:05 PM CDT) [facility] HIV 1/2 ab + p24 ag Nonreactive Nonreactive Comment:Nonreactive for HIV- 1 antigen and HIV-1/HIV-2 antibodies. No laboratory evidence of HIV infection. If acute HIV infection is suspected, consider testing for HIV-1 RNA. Current interpretive data was last revised on 22. Blood 03/30/2025 2:05 PM CDT 03/30/2025 2:32 PM CDT Vu Cruz MD LAB MICROBIOLOGY - GENERAL OR DERABLES Final Result Performing Organization Address [facility] de Phone Number [facility] [place] [address] * (ABNORMAL) CMV, IgG Blood (03/30/2025 2:05 PM CDT) [facility] CMV IgG Positive( A) Negative Comment: Interpretive Data Negative - Individuals [...] indicate past or recent CMV infection. Blood 03/30/2025 2:05 PM CDT 03/30/2025 3:28 PM CDT Vu Cruz MD LAB MICROBIOLOGY - GENERAL OR DERABLES Final Result Performing Organization Address [facility] [place]/[facility] Co de Phone Number [facility] [place] [address] * HLA Antibody Screen - SAB (Class I and Class II) (03/30/2025 2:05 PM CDT) Class I Treatment EDTA HISTOTRAC Class I Dilution 1:1 HISTOTRAC Class I Tested Date 03/31/2025 HISTOTRAC Class I Result Positive HISTOTRAC Class I CPRA 32 HISTOTRAC Class I Moderate Risk A3, A11 HISTOTRAC Class I Low Risk A29, A43 HISTOTRAC Class II Treatment EDTA HISTOTRAC Class II Dilution 1:1 HISTOTRAC Class II Tested Date 03/31/2025 HISTOTRAC Class II Result Positive HISTOTRAC Class II CPRA 72 HISTOTRAC Class II Increased Risk DQ5, DQ6 HISTOTRAC Class II Moderate Risk DR9, DR15, DR16; DQ4; DPB1*28:01 HISTOTRAC Class II Low Risk DR1, DR4, DR7, DR8, DR9, DR12, DR14, DR15, DR51; DQ2, DQ9; DPB1*13:01, DPB1*20:01, DPB1*28:01 HISTOTRAC Blood 03/30/2025 2:05 PM CDT 03/31/2025 1:39 PM CDT Narrative HISTOTRAC - 03/31/2025 1:39 PM CDT Single-antigen HLA antibody screen is performed on serum samples using a method developed and validated by the [facility] HLA laboratory based on an FDA-approved IVD kit (LABScreen Single-Antigen, [employer], [place], [place]). All patient serum samples are pretreated with EDTA before the screen to prevent complement interference. Additional serum treatments, such as adsorption and DTT treatment, may be performed as indicated. Interpretive comments: Low risk: MFI [id number]. Moderate risk: MFI 1658-4224. Increased risk: MFI >/= 5000. The presence [...] antigens to avoid. Testing performed at the [facility], [address] [place] [address], 5th floor, [place], [address]. CLIA # [id number]. Prabha Ghosh, Ph.D., Low Voltage Technician, HLA Laboratory Joe Lorenz M.D., Ph.D., Hand Plug Shaper, HLA Laboratory Adalgisa Jordan, Ph.D., CLIA Hand Plug Shaper, [facility] Clinical Laboratories Current methodology and interpretive comments last revised on 07/13/2022. Vu Cruz MD LAB BLOOD ORDERABLES Final Re sult HISTOTRAC * (ABNORMAL) CBC with auto differential (03/30/2025 2:05 PM CDT) WBC 3.23(L) 3.80 - 9.90 K/cumm Comment:Testing performed by : [facility], [address] [place] [phone] Hgb 10.6(L) 11.9 - 15.5 g/dL CERCHRIS [facility] Comment:Testing performed by : [facility], [address] [place] [phone] Hct 31.4(L) 35.6 - 45.5 % BOO DYER Comment:Testing performed by : [facility], [address] [place] [phone] Plt 66(L) 150 - 400 K/cumm CERCHRIS DYER Comment:Testing performed by : [facility], [address] [place] [address] MPV 8.1 6.8 - 10.4 fL CERCHRIS DYER Comment:Testing performed by : [facility], [address] [place] [address] RBC 3.61(L) 3.90 - 5.20 M/cumm BOO DYER Comment:Testing performed by : [facility], [address] [place] [address] MCV 87.1 81.3 - 96.[address] [facility] Comment:Testing performed by : [facility], [address] [place], [place] [phone] MCH 29.3 27.1 - 33.[address] [facility] Comment:Testing performed by : [facility], [address] [place] [address] MCHC 33.7 32.3 - 35.7 g/dL BOO DYER Comment:Testing performed by : [facility], [address] [place] [address] RDW CV 17.8(H) 11.1 - 14.9 % BOO [facility] Comment:Testing performed by : [facility], [address] [place] [address] NRBC abs 0.00 0.00 - 0.01 K/cumm BOO [facility] Comment:Testing performed by : [facility], [address] [place] [address] Blood 03/30/2025 2:05 PM CDT 03/30/2025 2:13 PM CDT Vu Cruz MD LAB BLOOD ORDERABLES Final Re sult [facility] Department [place] [address] * Hepatitis panel, acute Blood (03/30/2025 2:05 PM CDT) Pathologist [facility] Hep A IgM Nonreactive Nonreactive Hep B core IgM Nonreactive Nonreactive [facility] Hep C Ab Nonreactive Nonreactive [facility] Comment:Antibodies to HCV no t detected. Does NOT exclude the possibility of recent exposure to HCV. Current interpretive data was last revised on 22 HepBsAg Nonreactive Nonreactive [facility] Blood 03/30/2025 2:05 PM CDT 03/30/2025 2:32 PM CDT Vu Cruz MD LAB MICROBIOLOGY - GENERAL OR DERABLES Final Result Performing Organization Address City/[facility]/ZIP Co de Phone Number [facility] [place] [address] * Hepatitis B core antibody, total Blood (03/30/2025 2:05 PM CDT) [facility] Hep B core IgG/IgM Nonreactive Nonreactive Blood 03/30/2025 2:05 PM CDT 03/30/2025 2:32 PM CDT Vu Cruz MD LAB MICROBIOLOGY - GENERAL OR DERABLES Final Result Performing Organization Address [facility] [place]/[facility] Co de Phone Number [facility] [place] [address] * (ABNORMAL) Vitamin D 25 hydroxy (03/30/2025 2:05 PM CDT) [facility] Vitamin D 25-OH 28(L) 30 - 80 ng/mL Blood 03/30/2025 2:05 PM CDT 03/30/2025 2:16 PM CDT Vu Cruz MD LAB BLOOD ORDERABLES Final Re sult Performing Organization Address City/[facility]/ZIP Co de Phone Number [facility] [place] [address] * Estradiol (03/30/2025 2:05 PM CDT) Pathologist [facility] Estradiol <5.0 pg/mL Comment: Interpretive Data Males: 11 43 pg/mL Females: Premenopausal: 31 533 pg/mL Postmenopausal: < 50 pg/mL Patients treated with Fluvestrant (Faslodex) should be tested using an alternate assay such as LC-MS due to potential for cross-reactivity. Estradiol varies widely throughout the menstrual cycle. Current interpretive data was last revised 2024. Blood 03/30/2025 2:05 PM CDT 03/30/2025 2:32 PM CDT Vu Cruz MD LAB BLOOD ORDERABLES Final Re sult Performing Organization Address [facility] Co de Phone Number [facility] [place] [address] * HSV 2 IgG Antibody Blood (03/30/2025 2:05 PM CDT) Pathologist [facility] HSV 2 IgG Nonreactive Nonreactive Comment: Interpretive Data 1. Nonreactive: No detectable IgG antibody to HSV-2. 2. Equivocal: Presence or absence of detectable antibodies to HSV-2 cannot be determined and the test should be repeated. 3. Reactive: Indicates presence of detectable IgG antibody to HSV-2. Current interpretive data was last revised on 2022. Blood 03/30/2025 2:05 PM CDT 03/30/2025 3:28 PM CDT Vu Cruz MD LAB MICROBIOLOGY - GENERAL OR DERABLES Final Result Performing Organization Address City/[facility]/ZIP Co de Phone Number [facility] [place] [address] * (ABNORMAL) HSV 1 IgG Antibody Blood (03/30/2025 2:05 PM CDT) Pathologist [facility] HSV 1 IgG Reactive( A) Nonreactive Comment: Interpretive Data 1. Nonreactive: No detectable IgG antibody to HSV-1. 2. Equivocal: Presence or absence of detectable antibodies to HSV-1 cannot be determined and the test should be repeated. 3. Reactive: Indicates presence of detectable IgG antibody to HSV-1. Current interpretive data was last revised on 2016. Blood 03/30/2025 2:05 PM CDT 03/30/2025 3:28 PM CDT us Vu Cruz MD LAB MICROBIOLOGY - GENERAL OR DERABLES Final Result Performing Organization Address [facility] [place]/[facility] Co de Phone Number [facility] [place] [address] * Toxoplasma gondii antibody, IgG Blood (03/30/2025 2:05 PM CDT) Toxoplasma IgG Negative Negative Comment: Interpretive Data Negative - No detectable antibody. Equivocal - Presence of detectable antibody cannot be determined. Positive - Detectable level of antibody present. Current interpretive data was last revised on 2017. Blood 03/30/2025 2:05 PM CDT 03/30/2025 3:28 PM CDT us Vu Cruz MD LAB MICROBIOLOGY - GENERAL OR DERABLES Final Result Performing Organization Address [facility] [place]/[facility] de Phone Number [facility] [place] [address] * RPR Blood (03/30/2025 2:05 PM CDT) RPR Nonreactive Nonreactive Blood 03/30/2025 2:05 PM CDT 03/30/2025 3:28 PM CDT Vu Cruz MD LAB MICROBIOLOGY - GENERAL OR DERABLES Final Result Performing Organization Address [facility] [place]/[facility] Co de Phone Number [facility] [place] [address] * aPTT (03/30/2025 2:05 PM CDT) aPTT 31 26 - 38 sec Comment: Interpretive Data Heparin therapeutic range: 66.0 - 100.0 seconds. Range based on correlation with therapeutic heparin activity range of 0.3 - 0.7 Units/mL. Current interpretive data was last revised on 2023. Blood 03/30/2025 2:05 PM CDT 03/30/2025 2:32 PM CDT Vu Cruz MD LAB BLOOD ORDERABLES Final Re sult Performing Organization Address [facility] [place]/[facility] Co de Phone Number [facility] [email or web address] [address] * Protime-INR (03/30/2025 2:05 PM CDT) Pathologist [facility] PT 11.8 10.2 - 13.5 sec INR 1.05 0.90 - 1.20 [facility] Comment: Interpretive data Oral anticoagulant therapeutic ranges: Venous thromboembolism prophylaxis or treatment: 2.0-3.0 CARDIOLOGY Standard range: 2.0-3.0 High-intensity range: 2.5-3.5 Refer to indication-specific guidelines for appropriate target ranges for prosthetic heart valve replacement. Current interpretive data was last revised on 2019. Blood 03/30/2025 2:05 PM CDT 03/30/2025 2:32 PM CDT Vu Cruz MD LAB BLOOD ORDERABLES Final Re sult Performing Organization Address [facility] [place] [facility] Co de Phone Number [facility] [email or web address] [address] * Type and screen (03/30/2025 2:05 PM CDT) ABO Rh O Positive Rosalia, indirect Negative [facility] Blood 03/30/2025 2:05 PM CDT 03/30/2025 2:20 PM CDT Narrative [facility] 03/30/2025 3:24 PM CDT Has the patient had Daratumumab or Isatuximab in the past 6 months?->Unknown Vu Cruz MD LAB BLOOD BANK TEST ORDERABLE S Final Result Performing Organization Address [facility] de Phone Number [facility] [place] [address] * hCG, blood, quantitative (03/30/2025 2:05 PM CDT) hCG, quant <5.0 0.0 - 5.0 IUnits/L Comment: Interpretive Data Male: < 5 IU/L Non- premenopausal Female: <5 IU/L The Ajith hCG Beta Quant assay procedure was used. Results from different manufacturers or methods may not be comparable. Serial testing should be performed using the same method. Interpretive Data was last revised on 2023 Blood 03/30/2025 2:05 PM CDT 03/30/2025 2:16 PM CDT Vu Cruz MD LAB BLOOD ORDERABLES Final Re sult Performing Organization Address [facility] [place] [address] * Uric acid (03/30/2025 2:05 PM CDT) [facility] Uric acid 5.7 2.5 - 7.0 mg/dL Blood 03/30/2025 2:05 PM CDT 03/30/2025 2:16 PM CDT Vu Cruz MD LAB BLOOD ORDERABLES Final Re sult Performing Organization Address [facility] Co de Phone Number [facility] [place] [address] * (ABNORMAL) Triglycerides (03/30/2025 2:05 PM CDT) Triglycerides 286(H) <=149 mg/dL Comment: Interpretive Data Ages < [...] Data was last revised on 2018. Blood 03/30/2025 2:05 PM CDT 03/30/2025 2:16 PM CDT Vu Cruz MD LAB BLOOD ORDERABLES Final Re sult Performing Organization Address City/[facility] de Phone Number BOO [facility] [place], [place] [id number] * TSH (03/30/2025 2:05 PM CDT) Thyroid Stimulating Hormone 1.48 0.30 - 4.20 mcIUnit/mL Blood 03/30/2025 2:05 PM CDT 03/30/2025 2:16 PM CDT Vu Cruz MD LAB BLOOD ORDERABLES Final Re sult Performing Organization Address City/[facility] de Phone Number [facility] [place] [address] * T4, free (03/30/2025 2:05 PM CDT) Free T4 0.92 0.90 - 1.70 ng/dL Blood 03/30/2025 2:05 PM CDT 03/30/2025 2:16 PM CDT Vu Cruz MD LAB BLOOD ORDERABLES Final Re sult Performing Organization Address [facility] Co de Phone Number [facility] [place] [address] * PTH (03/30/2025 2:05 PM CDT) PTH 43 18 - 59 pg/mL Blood 03/30/2025 2:05 PM CDT 03/30/2025 3:28 PM CDT Vu Cruz MD LAB BLOOD ORDERABLES Final Re sult Performing Organization Address [facility] de Phone Number [facility] [place] [address] * Magnesium (03/30/2025 2:05 PM CDT) Magnesium 2.1 1.4 - 2.5 mg/dL Blood 03/30/2025 2:05 PM CDT 03/30/2025 2:16 PM CDT Vu Cruz MD LAB BLOOD ORDERABLES Final Re sult Performing Organization Address [facility] [place] [address] * Lactate dehydrogenase (LD) (03/30/2025 2:05 PM CDT) Lactate dehydrogenase (LDH) 144 100 - 250 Units/L Blood 03/30/2025 2:05 PM CDT 03/30/2025 2:16 PM CDT Vu Cruz MD LAB BLOOD ORDERABLES Final Re sult Performing Organization Address [facility] de Phone Number [facility] [place] [address] * (ABNORMAL) Hemoglobin A1c (03/30/2025 2:05 PM CDT) Hgb A1C 6.2(H) 4.0 - 5.6 % Estimated Average Glucose 131 mg/dL [facility] Comment: The ADA recommends reporting an estimated Average Glucose (eAG) with all Hemoglobin A1c results using the equation derived from a study of 507 normal and diabetic adults. Minority populations were underrepresented and children were not included. (Diabetes Care 2020; 43(S1): S66-S76). The eAG is not equivalent to a fasting glucose. Blood 03/30/2025 2:05 PM CDT 03/30/2025 2:16 PM CDT Vu Cruz MD LAB BLOOD ORDERABLES Final Re sult Performing Organization Address [facility] de Phone Number [facility] [place] [address] * LH (03/30/2025 2:05 PM CDT) Pathologist [facility] LH 74.4 IUnits/L Comment: Interpretive Data Males: Adults: 1.7 - 8.6 IUnits/L Females: Follicular: 2.4 - 12.6 IUnits/L Ovulation: 14.0 - 95.6 IUnits/L Luteal: 1.0 - 11.4 IUnits/L Postmenopausal: 7.7 - 58.5 IUnits/L Current interpretive data was last revised on 2018. Blood 03/30/2025 2:05 PM CDT 03/30/2025 2:32 PM CDT Vu Cruz MD LAB BLOOD ORDERABLES Final Re sult Performing Organization Address [facility] de Phone Number [facility] [place] [address] * Follicle stimulating hormone (03/30/2025 2:05 PM CDT) Pathologist [facility] FSH 121.0 IUnits/L Comment: Interpretive Data Male: Adults: 1.5 - 12.4 IUnits/L Female: Follicular: 3.5 - 12.5 IUnits/L Ovulation: 4.7 - 21.5 IUnits/L Luteal: 1.7 - 7.7 IUnits/L Postmenopausal: 25.8 - 134.8 IUnits/L Current interpretive data was last revised 2015. Blood 03/30/2025 2:05 PM CDT 03/30/2025 2:32 PM CDT us Vu Cruz MD LAB BLOOD ORDERABLES Final Re sult [facility] Department [place] [address] * (ABNORMAL) Comprehensive metabolic panel (03/30/2025 2:05 PM CDT) Pathologist [facility] Sodium 140 135 - 145 mmol/L Potassium, pl 3.8 3.3 - 4.9 mmol/L [facility] Chloride 108 97 - 110 mmol/L [facility] CO2 21(L) 22 - 32 mmol/L [facility] Anion gap 11 2 - 15 mmol/L [facility] BUN 20 6 - 25 mg/dL [facility] Creatinine 0.96 0.60 - 1.10 mg/dL [facility] Glucose 100 70 - 199 mg/dL [facility] Comment: Interpretive Data Fasting glucose >/= [...] classification and Diagnosis of Diabetes Diabetes Care 202; 46: S19-S40. Current interpretive data was last revised 2022. Calcium 9.8 8.5 - 10.3 mg/dL CERNER [facility] Bilirubin, total 0.3 0.1 - 1.2 mg/dL [facility] Protein, pl 7.5 6.5 - 8.5 g/dL C[facility] Albumin 4.2 3.5 - 5.0 g/dL [facility] Alk phos 105 40 - 130 Units/L [facility] ALT 25 7 - 45 Units/L [facility] AST 16 10 - 45 Units/L [facility] Blood 03/30/2025 2:05 PM CDT 03/30/2025 2:16 PM CDT Result [facility] Vu Cruz MD LAB BLOOD ORDERABLES Final Re sult [facility] Department [place] [address] * HLA Donor Specific Antibody Report (03/26/2025 12:49 PM CDT) Provider Scanning LAB BLOOD ORDERABLES Final Res ult * HLA Donor Specific Antibody Report (03/26/2025 12:49 PM CDT) Provider Scanning LAB BLOOD ORDERABLES Final Res ult * HLA Hematopoietic Stem Cell Typing Report (03/24/2025 12:48 PM CDT) Vu Cruz MD LAB BLOOD ORDERABLES Final Re sult * HLA Donor Specific Antibody Report (03/20/2025 9:14 AM CDT) Provider Scanning LAB BLOOD ORDERABLES Final Res ult * HLA Donor Specific Antibody Report (03/20/2025 8:59 AM CDT) Provider Scanning LAB BLOOD ORDERABLES Final Res ult * HLA Hematopoietic Stem Cell Typing Report (03/17/2025 11:59 AM CDT) Emilia Johnston ASSEMBLY DETAILER LAB BLOOD ORDERABLES Final Result * HLA Hematopoietic Stem Cell Typing Report (03/11/2025 10:15 AM CDT) Vu Cruz MD LAB BLOOD ORDERABLES Final Re sult * HLA Hematopoietic Stem Cell Typing Report (03/10/2025 12:48 PM CDT) Emilia Johnston NP LAB BLOOD ORDERABLES Final Result * HLA Hematopoietic Stem Cell Typing Report (03/03/2025 9:26 AM CDT) Vu Cruz MD LAB BLOOD ORDERABLES [...] 3:38 PM CDT 02/24/2025 10:08 AM CDT Result [facility] Vu Cruz MD LAB BLOOD ORDERABLES Final Re sult Performing Organization Address City/State/ZIP Co nh Phone Number [facility] Department [place] [address] * eGFR (02/23/2025 3:38 PM CDT) Pathologist [facility] eGFR 82 >=60 mL/min/1. 73 m2 Comment: [...] MD LAB BLOOD ORDERABLES Final Re sult [facility] Department [place] [address] * (ABNORMAL) Differential, auto (02/23/2025 3:38 PM CDT) Pathologist [facility] Neutrophil abs 1.79 1.50 - 6.50 K/cumm Comment:Testing performed by : [facility], [address] [place] [phone] Lymphocyte abs 0.25(L) 0.80 - 3.30 K/cumm [facility] Comment:Testing performed by : [facility], [address] [place] [phone] Monocyte abs 0.42 0.20 - 0.80 K/cumm [facility]ER [facility] Comment:Testing performed by : [facility], [address] [place] [phone] Eosinophil abs 0.01 0.00 - 0.50 K/cumm [facility] Comment:Testing performed by : [facility], [address] [place] [phone] Basophil abs 0.02 0.00 - 0.10 K/cumm [facility] Comment:Testing performed by : [facility], [address] [place] [phone] Neutrophil pct 72.2 % [facility] Comment: Interpretive Data Percent cell count reference ranges are not reported, since discordance with absolute values may lead to misinterpretation of CBC data. Current Interpretive Data was last revised on 2017. Testing performed by: [facility], [address] [place] [phone] Lymphocyte pct 9.9 % [facility] Comment: Interpretive Data Percent cell count reference ranges are not reported, since discordance with absolute values may lead to misinterpretation of CBC data. Current Interpretive Data was last revised on 2017. Testing performed by: [facility], [address] [place] [phone] Monocyte pct 16.8 % [facility]ER [facility] Comment: Interpretive Data Percent cell count reference ranges are not reported, since discordance with absolute values may lead to misinterpretation of CBC data. Current Interpretive Data was last revised on 2017. Testing performed by: [facility], [address] [place] [phone] Eosinophil pct 0.3 % [facility] Comment: Interpretive Data Percent cell count reference ranges are not reported, since discordance with absolute values may lead to misinterpretation of CBC data. Current Interpretive Data was last revised on 2017. Testing performed by: [facility], [address] [place] [phone] Basophil pct 0.7 % [facility] Comment: Interpretive Data Percent cell count reference ranges are not reported, since discordance with absolute values may lead to misinterpretation of CBC data. Current Interpretive Data was last revised on 2017. Testing performed by: [facility], [address] [place] [phone] Blood 02/23/2025 3:38 PM CDT 02/23/2025 3:44 PM CDT Vu Cruz MD LAB BLOOD ORDERABLES Final Re sult Performing Organization Address [facility] [place] Co de Phone Number [facility] [place] [address] * HTLV-I/II antibodies, qualitative (02/23/2025 3:38 PM CDT) Pathologist [facility] HTLV 1-2, Antibodies Negative Negative [place] [facility] Comment: Test Performed by: [facility] [address] [place] [address] Centrifuge Separator Operator: Ingrid Beltrán Ph.D.; CLIA# [id number] Blood 02/23/2025 3:38 PM CDT 02/23/2025 7:43 PM CDT Vu Cruz MD LAB BLOOD ORDERABLES Final Re sult Performing Organization Address [facility] [place] Co de Phone Number [facility] [place] [address] [facility] * HIV 1/2 Antibody plus p24 Antigen Blood (02/23/2025 3:38 PM CDT) Pathologist [facility] HIV 1/2 ab + p24 ag Nonreactive [...] OR DERABLES Final Result Performing Organization Address [facility] [place] de Phone Number [facility] [place] [address] * CMV, IgG Blood (02/23/2025 3:38 PM CDT) [facility] CMV IgG Negative Negative Comment: Interpretive Data [...] OR DERABLES Final Result Performing Organization Address [facility] de Phone Number [facility] Department [place] [address] * (ABNORMAL) CBC with auto differential (02/23/2025 3:38 PM CDT) [facility] WBC 2.48(L) 3.80 - 9.90 K/cumm Comment:Testing performed by : [facility], [address] [place] [address] Hgb 9.2(L) 11.9 - 15.5 g/dL [facility]IS [facility] Comment:Testing performed by : [facility], [address] [place] [address] Hct 26.2(L) 35.6 - 45.5 % [facility] Comment:Testing performed by : [facility], [address] [place] [address] Plt 99(L) 150 - 400 K/cumm [facility] Comment:Testing performed by : [facility], [address] [place] [address] MPV 7.9 6.8 - 10.4 fL [facility]ER [facility] Comment:Testing performed by : [facility], [address] [place], [place] [phone] RBC 3.01(L) 3.90 - 5.20 M/cumm BOO DYER Comment:Testing performed by : [facility], [address] [place], [place] [phone] MCV 87.2 81.3 - 96.4 fL [facility]OO [facility]YER Comment:Testing performed by : [facility], [address] [place], [place] [phone] MCH 30.7 27.1 - 33.3 pg BOO DYER Comment:Testing performed by : [facility], [address] [place], [place] [phone] MCHC 35.2 32.3 - 35.7 g/dL BOO DYER Comment:Testing performed by : [facility], [address] [place], [place] [phone] RDW CV 18.8(H) 11.1 - 14.9 % BOO [facility] Comment:Testing performed by : [facility], [address] [place], [place] [phone] NRBC abs 0.00 0.00 - 0.01 K/cumm BOO [facility] Comment:Testing performed by : [facility], [address] [place], [place] [phone] Blood 02/23/2025 3:38 PM CDT 02/23/2025 3:44 PM CDT us Vu Cruz MD LAB BLOOD ORDERABLES Final Re sult BOO D[facility] Department [place] [address] * Hepatitis panel, acute Blood (02/23/2025 3:38 PM CDT) Hep A IgM Nonreactive Nonreactive Hep B core IgM Nonreactive Nonreactive BOO DYER Hep C Ab Nonreactive Nonreactive [facility]OO [facility] Comment:Antibodies to HCV no t detected. Does NOT exclude the possibility of recent exposure to HCV. Current interpretive data was last revised on 22 HepBsAg Nonreactive Nonreactive [facility] Blood 02/23/2025 3:38 PM CDT 02/23/2025 5:07 PM CDT Vu Cruz MD LAB MICROBIOLOGY - GENERAL OR DERABLES Final Result Performing Organization Address City/[facility] Co de Phone Number [facility] [place] [address] * Hepatitis B core antibody, total Blood (02/23/2025 3:38 PM CDT) [facility] Hep B core IgG/IgM Nonreactive Nonreactive Blood 02/23/2025 3:38 PM CDT 02/23/2025 5:07 PM CDT Vu Cruz MD LAB MICROBIOLOGY - GENERAL OR DERABLES Final Result Performing Organization Address [facility] [place] de Phone Number [facility] [place] [address] * (ABNORMAL) Vitamin D 25 hydroxy (02/23/2025 3:38 PM CDT) [facility] Vitamin D 25-OH 20(L) 30 - 80 ng/mL Blood 02/23/2025 3:3 8 PM CDT 02/23/2025 3:49 PM CDT Vu Cruz MD LAB BLOOD ORDERABLES Final Re sult Performing Organization Address [facility] [place] de Phone Number [facility] [place] [address] * Estradiol (02/23/2025 3:38 PM CDT) [facility] Estradiol <5.0 pg/mL Comment: Interpretive Data Males: [...] ORDERABLES Final Re sult Performing Organization Address [facility] [place] Co de Phone Number [facility] [place] [address] * HSV 2 IgG Antibody Blood (02/23/2025 3:38 PM CDT) HSV 2 IgG Nonreactive Nonreactive Comment: Interpretive [...] OR DERABLES Final Result Performing Organization Address [facility] [place] Co de Phone Number [facility] [place] [address] * (ABNORMAL) HSV 1 IgG Antibody Blood (02/23/2025 3:38 PM CDT) HSV 1 IgG Reactive( A) Nonreactive Comment: [...] OR DERABLES Final Result Performing Organization Address [facility] [place] de Phone Number [facility] [place] [address] * Toxoplasma gondii antibody, IgG Blood (02/23/2025 3:38 PM CDT) Toxoplasma IgG Negative Negative Comment: Interpretive Data Negative - No detectable antibody. Equivocal - Presence of detectable antibody cannot be determined. Positive - Detectable level of antibody present. Current interpretive data was last revised on 2017. Blood 02/23/2025 3:38 PM CDT 02/23/2025 4:47 PM CDT Vu Cruz MD LAB MICROBIOLOGY - GENERAL OR DERABLES Final Result Performing Organization Address [facility] [place] [address] * RPR Blood (02/23/2025 3:38 PM CDT) RPR Nonreactive Nonreactive Blood 02/23/2025 3:38 PM CDT 02/23/2025 4:47 PM CDT Vu Cruz MD LAB MICROBIOLOGY - GENERAL OR DERABLES Final Result Performing Organization Address [facility] [place] de Phone Number [facility] [place] [address] * aPTT (02/23/2025 3:38 PM CDT) aPTT [...] ORDERABLES Final Re sult Performing Organization Address [facility] de Phone Number [facility] [place] [address] * Protime-INR (02/23/2025 3:38 PM CDT) PT 12.7 10.2 - 13.5 sec INR 1.13 0.90 - 1.20 [facility] Comment: Interpretive data Oral anticoagulant therapeutic ranges: Venous thromboembolism prophylaxis or treatment: 2.0-3.0 CARDIOLOGY Standard range: 2.0-3.0 High-intensity range: 2.5-3.5 Refer to indication-specific guidelines for appropriate target ranges for prosthetic heart valve replacement. Current interpretive data was last revised on 2019. Blood 02/23/2025 3:38 PM CDT 02/23/2025 4:03 PM CDT Vu Cruz MD LAB BLOOD ORDERABLES Final Re sult Performing Organization Address [facility] [place] [place] [address] * Type and screen (02/23/2025 3:38 PM CDT) ABO Rh O Positive Rosalia, indirect Negative [facility] Blood 02/23/2025 3:38 PM CDT 02/23/2025 3:58 PM CDT [facility]ative [facility] - 02/23/2025 4:46 PM CDT Has the patient had Daratumumab or Isatuximab in the past 6 months?->Unknown Vu Cruz MD LAB BLOOD BANK TEST ORDERABLE S Final Result Performing Organization Address [facility] [place] Co de Phone Number [facility] [place] [address] * hCG, blood, quantitative (02/23/2025 3:38 PM [...] ORDERABLES Final Re sult Performing Organization Address [facility] [place] Co de Phone Number BOO [facility] [place] [address] * Uric acid (02/23/2025 3:38 PM CDT) Uric acid 5.8 2.5 - 7.0 mg/dL Blood 02/23/2025 3:38 PM CDT 02/23/2025 3:49 PM CDT Vu Cruz MD LAB BLOOD ORDERABLES Final Re sult Performing Organization Address City/[facility] Co de Phone Number BOO [facility] [place] [address] * (ABNORMAL) Triglycerides (02/23/2025 3:38 PM CDT) [...] ORDERABLES Final Re sult Performing Organization Address [facility] [place] de Phone Number [facility] Department [place] [address] * TSH (02/23/2025 3:38 PM CDT) Thyroid Stimulating Hormone 1.96 0.30 - 4.20 mcIUnit/mL Blood 02/23/2025 3:38 PM CDT 02/23/2025 3:49 PM CDT Vu Cruz MD LAB BLOOD ORDERABLES Final Re sult Performing Organization Address [facility] [place] de Phone Number [facility] Department [place] [address] * (ABNORMAL) T4, free (02/23/2025 3:38 PM CDT) Free T4 0.81(L) 0.90 - 1.70 ng/dL Blood 02/23/2025 3:38 PM CDT 02/23/2025 3:49 PM CDT Vu Cruz MD LAB BLOOD ORDERABLES Final Re sult Performing Organization Address City/[facility]/ZIP Co de Phone Number [facility] [place] [address] * PTH (02/23/2025 3:38 PM CDT) PTH 31 15 - 65 pg/mL Blood 02/23/2025 3:38 PM CDT 02/23/2025 4:47 PM CDT Vu Cruz MD LAB BLOOD ORDERABLES Final Re sult Performing Organization Address [facility] [place] [place] [address] * Magnesium (02/23/2025 3:38 PM CDT) Pathologist [facility] Magnesium 2.0 1.4 - 2.5 mg/dL Blood 02/23/2025 3:38 PM CDT 02/23/2025 3:49 PM CDT Vu Cruz MD LAB BLOOD ORDERABLES Final Re sult Performing Organization Address [facility] [place] Co de Phone Number [facility] [place] [address] * Lactate dehydrogenase (LD) (02/23/2025 3:38 PM CDT) Lactate dehydrogenase (LDH) 139 100 - 250 Units/L Blood 02/23/2025 3:38 PM CDT 02/23/2025 3:49 PM CDT Vu Cruz MD LAB BLOOD ORDERABLES Final Re sult Performing Organization Address City/[facility]/ZIP Co de Phone Number [facility] [place] [address] * LH (02/23/2025 3:38 PM CDT) LH 74.4 IUnits/L Comment: Interpretive Data Males: Adults: 1.7 - 8.6 IUnits/L Females: Follicular: 2.4 - 12.6 IUnits/L Ovulation: 14.0 - 95.6 IUnits/L Luteal: 1.0 - 11.4 IUnits/L Postmenopausal: 7.7 - 58.5 IUnits/L Current interpretive data was last revised on 2018. Blood 02/23/2025 3:38 PM CDT 02/23/2025 4:23 PM CDT Vu Cruz MD LAB BLOOD ORDERABLES Final Re sult Performing Organization Address [facility] [place] de Phone Number [facility] [place] [address] * Follicle stimulating hormone (02/23/2025 3:38 PM [...] ORDERABLES Final Re sult Performing Organization Address City/[facility] Co de Phone Number [facility] [place] [address] * (ABNORMAL) Comprehensive metabolic panel (02/23/2025 3:38 PM CDT) Sodium 141 135 - 145 mmol/L Potassium, pl 3.4 3.3 - 4.9 mmol/L [facility] Chloride 109 97 - 110 mmol/L [facility] CO2 20(L) 22 - 32 mmol/L [facility] Anion gap 12 2 - 15 mmol/L [facility] BUN 15 6 - 25 mg/dL [facility] Creatinine 0.85 0.60 - 1.10 mg/dL [facility] Glucose 126 70 - 199 mg/dL [facility] Comment: Interpretive Data Fasting glucose >/= [...] 2022. Calcium 9.3 8.5 - 10.3 mg/dL [facility] Bilirubin, total <0.2 0.1 - 1.2 mg/dL [facility] Protein, pl 6.6 6.5 - 8.5 g/dL [facility] Albumin 3.8 3.5 - 5.0 g/dL [facility] Alk phos 113 40 - 130 Units/L [facility] ALT 15 7 - 45 Units/L [facility] AST 16 10 - 45 Units/L [facility] Blood 02/23/2025 3:38 PM CDT 02/23/2025 3:49 PM CDT us Vu Cruz MD LAB BLOOD ORDERABLES Final Re sult [facility] Department [place] [address] * HLA Antibody Screen - SAB (Class [...] a method developed and validated by the [facility] HLA laboratory based on an FDA-approved IVD kit (LABScreen Single-Antigen, [employer], [place], [place]). All patient serum samples are pretreated with EDTA before the screen to prevent complement interference. Additional serum treatments, such as adsorption and DTT treatment, may be performed as indicated. Interpretive comments: Low risk: MFI [id number]. Moderate risk: MFI [id number]. Increased risk: MFI >/= 5000. The presence [...] antigens to avoid. Testing performed at the [facility], [address] [place] [address], 5th floor, [place], [address]. CLIA # [id number]. Prabha Ghosh, Ph.D., Low Voltage Technician, HLA Laboratory Joe Lorenz M.D., Ph.D., Hand Plug Shaper, HLA Laboratory Adalgisa Jordan, Ph.D., CLIA Hand Plug Shaper, [facility] Clinical Laboratories Current methodology and interpretive comments last revised on 07/13/2022. Vu Cruz MD LAB BLOOD ORDERABLES Final Re sult [facility]AC * TRANSTHORACIC ECHO (TTE) COMPLETE W DOPPLER/CF W CONTRAST (02/23/2025 3:27 PM CDT) EF Mod BP 58 % CONS SCIMAGE Anatomical Region Laterality Modality Ultrasound 02/23/2025 1:56 PM CDT Narrative 02/23/2025 3:43 PM CDT [facility] [place] [address] Transthoracic Echocardiographic Report Patient Name: JUNIE SLADE L : 1970 (55y ) Sex: F Study Date: 02/23/2025 01:56:23 PM Ht(Inch): 65 Wt(Lb): 175.05 BSA: 1.91 Hat And Cap Opener: Maki Cuello RDCS Location: [facility] Order Provider: VU CRUZ Heart Rate: 75 [...] Procedure Note Gold Gray MD - 02/23/[address] [facility] [place] [address] Transthoracic Echocardiographic Report Patient Name: JUNIE SLADE L : 1970 (55y ) Sex: F Study Date: 02/23/2025 01:56:23 PM Ht(Inch): 65 Wt(Lb): 175.05 BSA: 1.91 Hat And Cap Opener: Maki Cuello RDCS Location: [facility] Order Provider: VU CRUZ Heart Rate: 75 [...] LA Length 4C 6.21 cm MV Decel [id number] msec [ 104.00 - 258.00 ] LA [...] HLA Typing, Buccal (02/23/2025 2:06 PM CDT) Pathologist [facility] HLA typing, buccal collection Received Buccal swab 02/23/2025 2:06 PM CDT 02/24/2025 10:08 AM CDT Vu Cruz MD LAB BODY FLUIDS AND STOOLS OR DERABLES Final Result [facility] Department [place] [address] * Pulmonary Function Test - (02/23/2025 10:46 AM CDT) FVC PRE 3.77 L [facility] FVC %PRE PRED 114 % [facility] FVC POST 3.89 L [facility] FVC %POST PRED 118 % [facility] FEV1 PRE 3.03 L [facility] FEV1 %PRE PRED 114 % [facility] FEV1 POST 3.18 L [facility] FEV1 %POST PRED 119 % [facility] FEV1/FVC PRE 80.4 % [facility] FEV1/FVC POST 81.7 % [facility] FRC PL PRE 2.58 L [facility] FRC PL %PRE PRED 88 % [facility] RV PRE 1.59 L [facility] RV %PRE PRED 83 % [facility] TLC PRE 5.32 L [facility] TLC %PRE PRED 102 % [facility] DLCO PRE 17.0 ml/min/mmH g [facility] DLCO %PRE PRED 81 % [facility] Anatomical Region Laterality Modality PFT 02/23/2025 10:1 [...] and %HbO2 is age dependent. However, the [facility] Pulmonary Function Laboratory defines hypoxemia as a PaO2 <56 mm Hg or a %HbO2 <89%. Starting on June of 2024 the [facility] Pulmonary Function Laboratory utilizes race neutral GLI Global normative equations. Vu Cruz MD PFT ORDERABLES Final Result * ECG 12 lead (02/23/2025 9:00 AM CDT) Ventricular Rate EKG/Min 94 BPM [facility] Atrial Rate 94 BPM [facility] [place]-Interval (MSEC) 146 ms [facility] QRS-Interval (MSEC) 68 ms [facility] QT-Interval (MSEC) 372 ms [facility] QTc 465 ms [facility] P [place] 54 degrees [facility] R [place] 46 degrees [facility] T [place] 59 degrees [facility] Diagnosis Normal sinus rhythm Low voltage QRS Cannot rule out Anterior infarct , age undetermined Abnormal ECG No previous ECGs available Confirmed by Breann Mcclain MD ([id number]) on 02/24/2025 9:22:16 AM [facility] [employer] 02/23/2025 9:00 AM CDT 02/24/2025 9:22 AM CDT Vu Cruz MD ECG ORDERABLES Final Result [facility] * XR Chest Pa Lateral 2 Views [...] Report (02/17/2025 8:29 AM CDT) Emilia Johnston ASSEMBLY DETAILER LAB BLOOD ORDERABLES Final Result * HLA Hematopoietic Stem Cell Typing Report (02/13/2025 12:53 PM CDT) Vu Cruz MD LAB BLOOD ORDERABLES Final Re sult from Last 3 Months Insurance [employer] OOS [employer] TRANSPLANT ANTHEM ACCESS NON CME Care Teams Garment Worker Relationship Specialty Start Date End Date Miguelangel Espinoza MD [address] [place] [address] PCP - General 10/06/16 Delvin Tavares MD [address] [facility] [address] [place] [address] Referring Physician Hematology and Oncology 12/30/24 Vu Cruz MD [address] [facility] 8 DIV IM BONE MARROW TRANSPLANT, 5TH, 6TH [address] Medical Oncologist/Business Management Analyst Medical Oncology 01/02/25
--- OUTSIDE RECORDS SUMMARY | 2025-04-28 09:14 | XMS_ITS ---
Author Organization [address] Address [address] [place] [id number] Care Team Providers Care Cardiac Catheterization Technician Name Role Phone Miguelangel Espinoza MD Primary Care Provider [phone] Delvin Tavares MD Unavailable [phone] Didier Cruz MD Unavailable [phone] Active Problems Problem Noted Date Diagnosed [...]
--- NOTE | 2025-04-28 09:15 | PC.NURSE ---
Patient tolerated injection well. Aware of next appt. denies any questions or concerns at discharge.
== END 2025-04-28 09:15 | disposition home or self-care (01) ==
PROVIDERS: PCP Family Medicine
DX: D70.9 Neutropenia, unspecified (principal); C92.00 Acute myeloblastic leukemia, not having achieved remission
CPT/HCPCS: 96372; Q5108